=== PATIENT | male | born 1935 | race Caucasian/White ===

== ENCOUNTER 2016-08-06 03:56 | Inpatient (IN) | payer MEDICARE ==
[~2016-08-06] VITALS: Ht 193 cm; Wt 101.5 kg
[2016-08-06] VITALS (21 sets, daily range): BP systolic 93–139; BP diastolic 55–91; PULSE 42–106; RESP 13–28; O2SAT 89–100
[~2016-08-06 03:56] MED LIST: ASPI-973 PO; ATEN25TA PO; CHOL200047 PO; FLUT16SP NS; FURO40TA4 PO; LEVO750T9 PO; LIPA1CAP3 PO; MULT-666 PO; NITR0.4T SL; OMEG1200 PO; POTA40LI2 PO; SIMV20TA4 PO
--- NOTE | 2016-08-06 04:08 | ED.REPORT ---
HPI-Abd Pain M 40 and Over Date of Service Aug 06, 2016 ED Provider: Indra Pelayo MD Patient is a 81 year old male with a history of coronary artery disease, hypertension, lymphoma s/p gastrectomy, pancreatic cancer s/p whipple procedure , ventral hernia repair, and prior small bowel obstruction who presents to the ED complaining of abdominal pain and nausea that awoke him from sleep at 1:30am this morning. Patient denies vomiting, diarrhea, or fever. He was able to have a small bowel movement after onset of symptoms but states that his current symptoms feel similar to when he previously had a small bowel obstruction in 2006. Nursing Notes Stated Complaint: POSS BOWEL OBSTRUCTION Chief Complaint: Male Abdominal Pain Nursing Notes Reviewed: Yes Allergies: Coded Allergies: hydromorphone (Verified Allergy, Unknown, 08/06/16) Scheduled Aspirin (Aspirin) 81 Mg Tablet.dr 81 MG PO DAILY Atenolol (Atenolol) 25 Mg Tablet 12.5 MG PO DAILY Cholecalciferol (Vitamin D3) (Vitamin D3) 2,000 Unit Capsule 2,000 UNIT PO DAILY Fluticasone Propionate (Fluticasone Propionate Nasal) 16 Gm [place].susp 2 SPRAY NS DAILY Furosemide (Furosemide) 40 Mg Tablet 20 MG PO DAILY Levofloxacin (Levaquin) 750 Mg Tablet 750 MG PO DAILYAC Lipase/Protease/Amylase (Creon DR) 1 Each Capsule.dr 2 EACH PO with meals Multivitamin (Once Daily) 1 Each Tablet 1 EACH PO DAILY [place]-3/Dha/Epa/Fish Oil ([place]-3 Fish Oil 1,200 mg Sfgl) 1,200 Mg Capsule 1, 200 MG PO BID Potassium Chloride (Potassium Chloride) 40 Meq/15 Ml Liquid 20 MEQ PO DAILY Simvastatin (Simvastatin) 20 Mg Tablet 10 MG PO HS Scheduled PRN Nitroglycerin SL (Nitrostat) 0.4 Mg Tab.subl 0.4 MG SL Q5MIN PRN PRN For Chest Pain General Time Seen by MD: 04:08 Chief Complaint Abdominal pain Hx Obtained From: Patient Arrived By: Walk-in Sudden in Onset?: No Onset Occurred: 1 - 4 hours ago Symptom Duration: Since onset Location: : Diffuse Quality: Painful Severity: Current: Severe Severity: Maximum: Severe Recent Healthcare: No recent doctor visit, No recent hospitalization Similar Sx Previous: Yes Past Medical History Past Medical History Notes: PCP Dr. Morris Rosales ([place]) Past Medical History Pancreatic cancer (in remission) in 2006 small bowel obstruction lymphoma s/p gastrectomy Reports: Coronary artery disease, Hyperlipidemia, Hypertension Past Surgical History Quadruple bypass in 1995 Whipple in 2006 Bowel obstruction surgery Hernia surgery (mesh was placed) gastrectomy Family History Reviewed, not relevant Smoking History Former Smoker Social History Alcohol Use: Denies alcohol use Drug Use: Denies drug use Other Social History: Good social support, , Local resident Ambulatory Status Independent Review of Systems Constitutional: Denies: Chills, Fever GI: Reports: Abdominal pain, Nausea, Denies: Diarrhea, Vomiting Complete sys rev & neg: except as marked. Physical Exam Initial Vital Signs Vital Signs (First) Date Time Temp Pulse Resp B/P Pulse Ox O2 Delivery O2 Flow Rate FiO2 08/06/16 03:58 35.4 65 18 131/78 99 Room Air Initial VS: Reviewed Neck: Supple, Full range of motion Skin: Warm, Dry, No cyanosis Neurologic: Alert, Oriented, Nonfocal Psychiatric: Mood/affect normal, Behavior normal, Normal thought content General/Constitutional: Awake, Alert Distress / Hydration: Positive: Dehydration mild, Distress moderate Appearance / Presentation: Positive: Uncomfortable Respiratory / Chest: Breath sounds NL, Breath sounds = bilat, No respiratory distress, No rales, No rhonchi, No wheezing Cardiovascular: Heart rate NL, Regular rhythm, Heart sounds NL, No murmurs Bowel Sounds / Distention: Positive: Bowel sounds hypoactive (quiet and tinckling), Distention severe palpable mesh in abdomen, without obvious herniation around it small umbilical hernia Back: Not examined. Head / Eyes: Normocephalic, PERRL, EOMI, No scleral icterus ENT: Airway patent Mouth: Positive: Mucous membranes dry Lower Extremity / Pelvis / MS: No swelling, No edema Interpretation & Diagnostics Lab Results Interpretation Result Diagram: 08/06/16 0435 08/06/16 0435 Test 08/06/16 04:35 08/06/16 05:00 White Blood Count 9.1th/mm3 (3.8-10.1) Red Blood Count 4.94mil/mm3 (4.40-5.80) Hemoglobin 15.6g/dL (13.8-17.2) Hematocrit 44.6% (41.0-50.0) Mean Corpuscular Volume 90.3fL (81-100) Mean Corpuscular Hemoglobin 31.6pg (27.0-35.0) Mean Corpuscular Hemoglobin Concent 35.0% (32.0-37.0) Red Cell Distribution Width 13.5% (12.3-15.4) Platelet Count 175bil/L (150-400) Neutrophils (%) (Auto) 78.8% (40-74) Lymphocytes (%) (Auto) 10.8% (14-46) Monocytes (%) (Auto) 7.9% (4-12) Eosinophils (%) (Auto) 2.0% (0-5) Basophils (%) (Auto) 0.3% (0-3) Prothrombin Time 10.6sec (8.1-12.5) Prothromb Time International Ratio 0.99ratio Sodium Level 141mEq/L (134-144) Potassium Level 3.8mEq/L (3.5-5.2) Chloride Level 104mEq/L (97-108) Carbon Dioxide Level 20mmol/L (18-29) Blood Urea Nitrogen 20mg/dL (8-27) Creatinine 1.29mg/dL (0.76-1.27) Estimat Glomerular Filtration Rate 57mL/min (>59) Glucose Level 137mg/dL (60-99) Calcium Level 9.8mg/dL (8.5-10.1) Magnesium Level 2.1mg/dL (1.6-2.6) Total Bilirubin 0.4mg/dL (0.0-1.2) Aspartate Amino Transf (AST/SGOT) 24U/L (0-50) Alanine Aminotransferase (ALT/SGPT) 24U/L (0-44) Alkaline Phosphatase 66U/L (25-160) Total Protein 7.8g/dL (6.4-8.4) Albumin 4.5g/dL (3.4-5.0) Lipase 5U/L (13-60) Lactic Acid Level 1.7mmol/L (0.4-2.0) CT Abd / Pelvis Interpretation CONCLUSION: Moderate small bowel dilatation and fluid levels, probable SBO. No free air. Mild right lower lobe atelectasis or infiltrate. Pneumonia is not excluded. Radiologist: Melly Walden MD 08/06/2016 - 5:07:23 AM PDT Study type: Abdominal CT no contrast Interpretation / Wet Read by: Interpret - Radiologist Re-Eval/Medical Decision Med Decision/Clinical Course 81-year-old with significant past surgical history, including a gastrectomy for lymphoma, Whipple procedure for subsequent pancreatic cancer, a ventral hernia postop that required mesh, and an incidental four-way bypass. He presents with abdominal pain and bloating and has a small bowel obstruction. Transition point appears to be in the right lower quadrant near the terminal ileum. He is not vomiting actively although nauseated. He has not required an NG tube at this point. He may yet. He is admitted for nothing by mouth status, IV fluids, and surgical evaluation. Source of Hx: Old records Time of Eval: 05:22 Patient Status: Condition improved Re-Evaluation/Progress Note: Rechecked the patient. He was informed that he has a small bowel obstruction on CT scan. He will be admitted to the hospital for further care. Patient would like to delay NG tube if possible. Patient understands and agrees with this plan. All questions were addressed. Consultation : Referral / Consult Name: Edwige Sheriff DO Consulted With: Hospitalist Call Returned at: 05:37 Livestock Trucker: Will see patient, Agrees with eval, Agrees with plan, Accepts admit Note: Spoke with Dr. Sheriff, hospitalist, who agrees to accept admit. Will consult surgery. Counseled Regarding: Diagnosis, Lab results, Need for admission Discharge & Departure Primary Impression: Small bowel obstruction Additional Impression: Ventral hernia Obstruction and gangrene presence: with obstruction but without gangrene Qualified Code: K43.6 - Other and unspecified ventral hernia with obstruction, without gangrene Disposition: ADMITTED TO HOSPITAL Vital Signs - All Vital Signs Date Time Temp Pulse Resp B/P Pulse Ox O2 Delivery O2 Flow Rate FiO2 08/06/16 05:50 36 71 13 132/69 92 Room Air 08/06/16 05:17 71 13 132/69 92 Room Air 08/06/16 04:15 131/78 08/06/16 03:58 35.4 65 18 131/78 99 Room Air )( All Prior VS Reviewed: Yes Condition: Stable Referrals: OTHER,PHYSICIAN (PCP) (Family) Scribe Attestation Portions of this note were transcribed by Silva Rand. I, Dr. Pelayo personally performed the history, physical exam and medical decision-making; I reviewed and confirmed the accuracy of the information in the transcribed note. Signed by: Lauren Lafleur, 08/06/2016 0538 copies to: OTHER,PHYSICIAN Indra Pelayo MD Aug 06, 2016 04:08 Silva Rand Aug 06, 2016 04:23
[2016-08-06] MEDS ORDERED: Ondansetron 2 mg/mL 2 mL Inj IVPUSH ONE (04:25)
[2016-08-06] MEDS ORDERED: Pantoprazole 4 mg/mL 10 mL Inj IVPUSH ONE (04:25)
[2016-08-06] MEDS ORDERED: 0.9% Sodium Chloride 1,000 ML IV ONE (04:25)
[2016-08-06 04:50] LABS: BASOPHILS % (AUTO) 0.3 % (0-3); MONOCYTES % (AUTO) 7.9 % (4-12); Mean Corpuscular Hemoglobin 31.6 pg (27.0-35.0); Mean Corpuscular Volume 90.3 fL (81-100); NEUTROPHILS % (AUTO) 78.8 % (40-74); Platelet Count 175 bil/L (150-400)
[2016-08-06] MEDS: fentaNYL-PF 50 mCg/mL 2 mL Inj IVPUSH PRN ×2 (05:03→06:51)
[2016-08-06 05:09] LABS: INR 0.99 ratio
[2016-08-06 05:13] LABS: Magnesium 2.1 mg/dL (1.6-2.6)
[2016-08-06] MEDS: 0.9% Sodium Chloride 1,000 ML IV SCH ×9 (05:30→20:57)
[2016-08-06] MEDS: Lactated Ringer's 1,000 ML IV SCH ×3 (05:43→22:58)
[2016-08-06] MEDS ORDERED: Ondansetron 2 mg/mL 2 mL Inj IVPUSH PRN (05:45)
[2016-08-06] MEDS ORDERED: MetoCLOpramide 5 mg/mL 2 mL Inj IVPUSH PRN (05:45)
[2016-08-06] MEDS: fentaNYL PCA 10 mCg/mL 30 mL Inj IV PRN ×3 (07:10→21:45)
--- NOTE | 2016-08-06 07:38 | NUR ---
arrived to floor pt arrived to [facility] room 1007 at 0630. He is alert and oriented x3. complaining of extreme pain in abdomen. COORDINATOR OF REHABILITATION SERVICES fentanyl set up and pt given a bolus by day shift charge nurse. pt also complaining of nausea with no vomiting given 4mg of IV zofran. placed on tele and PHYSICIST NUCLEAR, per cardiac monitor pt SR with first degree block. report passed to dayshift RN.
--- NOTE | 2016-08-06 08:28 | DRSVH ---
PROCEDURE: CT ABDOMEN AND PELVIS WITHOUT CONTRAST ([id number]) INDICATIONS: sbo, post gastrectomy and whipple TECHNIQUE: After the administration of oral contrast, 5 mm thick sections acquired from the diaphragms to the sy mphysis. 5 mm coronal and sagittal reformats were performed. For radiation dose reduction, the foll owing was used: automated exposure control, adjustment of mA and/or kV according to patient size. COMPARISON: [facility], CR, XR CHEST 1VW (PORTABLE), 08/06/2016, 5:45. FINDINGS: Image quality: Excellent. ABDOMEN: Lung bases: Bibasilar dependent atelectasis. Heart size is normal. There is severe coronary calcifi cation and CABG. Solid organs: Left hepatic lobe is absent, likely surgically resected. There is pneumobilia. A 10 mm hypodensity in the posterior segment of the right hepatic lobe is noted, probably a cyst. Spleen is n ormal in size. Gallbladder is surgically absent. Pancreas is normal in size. No adrenal nodules. Both kidneys are normal in size, without hydronephrosis. There is a 3 mm non-obstructive stone in th e superior pole of the right kidney. Bilateral exophytic renal cysts are present. Peritoneum and bowel: Surgical sutures seen in the stomach. Small bowel loops are distended measurin g up to 4.5 cm. There are differential air-fluid levels. No transitional point is identified. There i s abundant colonic gas. No free fluid or air. Nodes and vessels: No retroperitoneal or mesenteric adenopathy by size criteria. Aorta and inferior vena cava are normal in size. Miscellaneous: No ventral hernias. PELVIS: Genitourinary: Bladder wall thickness is normal. Miscellaneous: No inguinal hernias or adenopathy. Bones: No suspicious bony lesions. Mild compression deformity in L2, L3 and L4. IMPRESSION: 1. Distended small bowel to measure up to 4.5 cm. There is no transitional point identified. Abundant colonic gas is present. Differential diagnosis includes early small or partial small bowel obstructi on versus ileus. Recommend clinical correlation and followup. 2. A 3 mm non-obstructive renal cyst in the superior pole. 3. Bilateral renal cysts. No significant discrepancy with the overnight associate radiology preliminary report. Dictated by: Carmen Chacon M.D. on 08/06/2016 at 8:18 Approved by: Carmen Chacon M.D. on 08/06/2016 at 8:27
--- NOTE | 2016-08-06 08:29 | DRSVH ---
PROCEDURE: X-RAY CHEST ONE VIEW, PORTABLE ([id number]) INDICATIONS: SMALL BOWEL OBSTRUCTION TECHNIQUE: One view of the chest was acquired. COMPARISON: 09/01/2015 FINDINGS: Surgical changes and devices: Median sternotomy with CABG Lungs and pleura: No pleural effusions or pneumothorax. Lungs are clear except for minimal bibasila r atelectasis.. Mediastinum: Mediastinal contours appear normal. Heart size is normal. Bones and chest wall: No suspicious bony lesions. Overlying soft tissues appear unremarkable. IMPRESSION: Mild bibasilar atelectasis. Postop changes. Dictated by: Yousuf Collazo M.D. on 08/06/2016 at 8:27 Approved by: Yousuf Collazo M.D. on 08/06/2016 at 8:28
--- NOTE | 2016-08-06 08:53 | PCM.HPMED ---
Subjective Date of Service Aug 06, 2016 Primary Provider: Admitting Physician: Edwige Sheriff DO Primary Care Physician: Nopcp Attending Physician: Edwige Sheriff DO Chief Complaint: Sudden onset of abdominal pain History of Present Illness: 81-year-old male with significant bowel surgeries in the past including Whipple surgery in 2005 complicated by bowel obstruction in 2006 required surgical intervention, mesh was placed. had ventral hernia repair in 2008, s/p gastrectomy lymphoma presented with sudden onset of abdominal pain starting early this morning. Patient was in usual state of health until this episode. Yesterday, patient had normal diet, noticing his belly size got bigger but had good loose BM twice(normally 3-5times per day), then around 1:30am this morning , due to very severe cramping pain periumbilical area, pt woke up, had one small soft BM subsequently. didn't have nausea, vomiting, Pain didn't resolve decided to come to ED. in ED, VS stable, labs showed normal wbc, mildly elevated lactate, cr1.29(1.17 in 2016), lipase5. CT abd/pelvis w/o contrast showed distended SB 4.5cm, multiple colonic gases, admitted to hospital given SBO, possible surgical intervention. 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 received zofran, protonix On interview at [facility], pt still in distress due to pain, nausea, had multiple dry heaves, but no vomiting.pt agreed on NG insertion ROS: no fever, chills, cough, sputum, chest pain, sob, has baseline frequent loose stools, no travel, sick contacts. Review of Systems: Pertinent positives as noted in history of present illness. All other systems were reviewed and are negative Allergies Coded Allergies: hydromorphone (Verified Allergy, Unknown, 08/06/16) Home Medications Scheduled Aspirin (Aspirin) 81 Mg Tablet.dr 81 MG PO DAILY Atenolol (Atenolol) 25 Mg Tablet 12.5 MG PO DAILY Cholecalciferol (Vitamin D3) (Vitamin D3) 2,000 Unit Capsule 2,000 UNIT PO DAILY Fluticasone Propionate (Fluticasone Propionate Nasal) 16 Gm [place].susp 2 SPRAY NS DAILY Furosemide (Furosemide) 40 Mg Tablet 20 MG PO DAILY Lipase/Protease/Amylase (Creon DR) 1 Each Capsule.dr 2 EACH PO with meals Multivitamin (Once Daily) 1 Each Tablet 1 EACH PO DAILY [place]-3/Dha/Epa/Fish Oil ([place]-3 Fish Oil 1,200 mg Sfgl) 1,200 Mg Capsule 1, 200 MG PO BID Potassium Chloride (Potassium Chloride) 40 Meq/15 Ml Liquid 20 MEQ PO DAILY Simvastatin (Simvastatin) 20 Mg Tablet 10 MG PO HS Scheduled PRN Nitroglycerin SL (Nitrostat) 0.4 Mg Tab.subl 0.4 MG SL Q5MIN PRN PRN For Chest Pain PMH PMH 1. Coronary Artery Disease, status post 4-vessel bypass 2. Pancreatic Cancer, status post whipple procedure 3. Essential Hypertension 4. Hyperlipidemia 5. Asthma 6. Hx of Tobacco Use Surgical History 1. CABG, 4-vessel in 1996 2. Whipple Procedure in 2005 3. mesh placement due to SBO in 2006 4. ventral hernia repair in 2008 Family History father had heart attack Social History Hx Alcohol Use: Yes Alcoholic Drinks Per Day: Every once and a while Hx Substance Use: No (remote, quit smoking 1973, used to smoke 3ppd for 2yrs) Smoking Status: Former Smoker Additional Information lives alone, is in [facility] resident Exam Vital Signs Vital Sign - Last Date Time Temp Pulse Resp B/P Pulse Ox O2 Delivery O2 Flow Rate FiO2 08/06/16 06:33 77 08/06/16 06:29 36.9 18 132/73 100 Room Air Intake and Output 08/05/16 08/05/16 08/06/16 Cumulative From/Thru 15:00 23:00 07:00 08/06/16 03:58 - 08/06/16 06:29 Intake Total 2000 ml 2000 ml Output Total 0 ml 0 ml Balance 2000 ml 2000 ml Intake Oral 0 ml 0 ml IV Total 2000 ml 2000 ml Output Urine Total 0 ml 0 ml # Voids 0 0 # Bowel Movements 0 0 Exam NAD, comfortably laying down on the bed no JVD, MMM, no LAD RRR, nl s1, s2 no mrg CTAB, no w,c decreased BS, distended, mildly tender, old midline scars, warm, no edema, pulses 2/2 Lab and Diagnostics Result Diagram: 08/06/16 0435 08/06/16 0435 X-Rays, CTs and MRIs PROCEDURE: CT ABDOMEN AND PELVIS WITHOUT CONTRAST ([id number]) INDICATIONS: sbo, post gastrectomy and whipple TECHNIQUE: After the administration of oral contrast, 5 mm thick sections acquired from the diaphragms to the symphysis. 5 mm coronal and sagittal reformats were performed. For radiation dose reduction, the following was used: automated exposure control, adjustment of mA and/or kV according to patient size. COMPARISON: [facility], CR, XR CHEST 1VW (PORTABLE), 08/06/2016, 5: 45. FINDINGS: Image quality: Excellent. ABDOMEN: Lung bases: Bibasilar dependent atelectasis. Heart size is normal. There is severe coronary calcification and CABG. Solid organs: Left hepatic lobe is absent, likely surgically resected. There is pneumobilia. A 10 mm hypodensity in the posterior segment of the right hepatic lobe is noted, probably a cyst. Spleen is normal in size. Gallbladder is surgically absent. Pancreas is normal in size. No adrenal nodules. Both kidneys are normal in size, without hydronephrosis. There is a 3 mm non- obstructive stone in the superior pole of the right kidney. Bilateral exophytic renal cysts are present. Peritoneum and bowel: Surgical sutures seen in the stomach. Small bowel loops are distended measuring up to 4.5 cm. There are differential air-fluid levels. No transitional point is identified. There is abundant colonic gas. No free fluid or air. Nodes and vessels: No retroperitoneal or mesenteric adenopathy by size criteria. Aorta and inferior vena cava are normal in size. Miscellaneous: No ventral hernias. PELVIS: Genitourinary: Bladder wall thickness is normal. Miscellaneous: No inguinal hernias or adenopathy. Bones: No suspicious bony lesions. Mild compression deformity in L2, L3 and L4. IMPRESSION: 1. Distended small bowel to measure up to 4.5 cm. There is no transitional point identified. Abundant colonic gas is present. Differential diagnosis includes early small or partial small bowel obstruction versus ileus. Recommend clinical correlation and followup. 2. A 3 mm non-obstructive renal cyst in the superior pole. 3. Bilateral renal cysts. No significant discrepancy with the supervising producer radiology preliminary report. 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 likely to switch to prn based dosing soon. -start aggressive bowel regimen via NG -continue [id number], trend cmp daily, replet K,Mg chronic, stable Coronary artery disease s/p CABG, continue home asa, BB, statin, lasix Hyperlipidemia, continue simvastatin Hypertension, continue atenolol asthma, neb tx as needed CKDII, POA, not in the problems list, Cr close to baseline, slightly worse, avoid renal toxin, adjust meds renally dispo:Patient will be admitted with inpatient status with expectation of inpatient therapy for more than 2 midnights diet:strict NPO dvt ppx:SCD Full Code, verbally confirmed, pt also has POLST signed, will verify VTE Mechanical Devices: Intermittant Pneumatic CD Time spent 65min Mireille Koenig MD Aug 06, 2016 08:53
[2016-08-06] MEDS ORDERED: Lidocaine 2% 5 mL Topical Jelly MUC_MEMBRM ONE (12:10)
--- NOTE | 2016-08-06 12:12 | DRSVH ---
PROCEDURE: X-RAY CHEST ONE VIEW ([id number]) INDICATIONS: NG placement TECHNIQUE: One view of the chest was acquired. COMPARISON: [facility], CR, XR CHEST 1VW (PORTABLE), 08/06/2016, 5:45. FINDINGS: Surgical changes and devices: The nasogastric tube is curved inside of the esophagus. Lungs and pleura: There is chronic elevation of the left hemidiaphragm. Left basilar opacity may be infiltrate or atelectasis. Possible small left pleural effusion. No pneumothorax. Overall, no signifi cant change. Mediastinum: Mediastinal contours appear normal. Heart size is normal. Bones and chest wall: No suspicious bony lesions. Overlying soft tissues appear unremarkable. Prom inent gastric bubble. IMPRESSION: Nasogastric tube curved inside of the esophagus. Dictated by: Carmen Chaocn M.D. on 08/06/2016 at 12:09 Approved by: Carmen Chacon M.D. on 08/06/2016 at 12:11
[2016-08-06] MEDS ORDERED: Lidocaine Topical 2% 30 mL Jelly ONE (13:06)
--- NOTE | 2016-08-06 13:49 | DRSVH ---
PROCEDURE: X-RAY CHEST ONE VIEW, PORTABLE ([id number]) INDICATIONS: NG Placement TECHNIQUE: One view of the chest was acquired. COMPARISON: 08/06/[id number] hrs. FINDINGS: Surgical changes and devices: Nasogastric tube has been revised, tip now below the level of the diaph ragm. Median sternotomy and CABG. Lungs and pleura: No pleural effusions or pneumothorax. Dense left lower lobe infiltrate with air br onchograms. Mediastinum: Mediastinal contours appear normal. Heart size is normal. Bones and chest wall: No suspicious bony lesions. Overlying soft tissues appear unremarkable. IMPRESSION: 1. Repositioning of nasogastric tube 2. Left lower lobe pneumonia. 3. Status post coronary artery bypass surgery. Dictated by: Yousuf Collazo M.D. on 08/06/2016 at 13:43 Approved by: Yousuf Collazo M.D. on 08/06/2016 at 13:48
[2016-08-06] MEDS ORDERED: Albuterol-Ipratropium 3 mL Inhalation Solution NEB PRN (14:25)
[2016-08-06] MEDS ORDERED: Albuterol 2.5 mg/3 mL Inhalation Solution NEB ONE (14:28)
--- NOTE | 2016-08-06 14:30 | NUR ---
NG Placement Surgical MD on unit to place second NG Tube due to first one being taken out by hospitalist after failed placement. After second NGT placement, patient vomited and aspirated emesis into lungs. Notified hospitalist that pt aspirated. XR ordered and confirmed LLE aspiration. Patient wheezy, coughing, and upper airway unable to clear at this time. Increased SOB, and coughing. Surgical MD reviewed second NG placement XR and asked this RN to advance NG 10cm. Advanced NGT at this time, with increased output into NG cannister. Respiratory therapy called and pt placed on nonrebreather 100% at this time. Pt having difficulty maintaining Sp02 above 90% on nonrebreather. MD requested PCC transfer at this time. Report called to AKUA Blakely. Transferred to room 2023 stable.
--- NOTE | 2016-08-06 14:49 | CONS ---
[address] [address] CONSULTATION REPORT PATIENT: THAI LEDBETTER : 1935 MR#: [id number] ADMIT: 08/06/2016 JOB ID: [id number] DATE OF SERVICE: 08/06/2016 SURGICAL CONSULTATION: REQUESTED BY: Mireille Koenig M.D. HISTORY OF PRESENT ILLNESS: The patient is a 81-year-old man I was asked to see for a small bowel obstruction. He has a complex past surgical history. In 2005 he had a Whipple resection done at [facility] in [place] by Dr. 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 He has had subsequent operations because of that Whipple procedure. He states that within 24 hours he was re-explored because of bleeding but he has obviously survived that. He then had a bowel obstruction in 2006. He subsequently had an incisional hernia repair which was repaired laparoscopically with mesh eight years ago. Early this morning he awoke with severe crampy abdominal pain and nausea and vomiting. Prior to that yesterday, he started noticing abdominal distention. He came to the emergency department. He had a CT scan which is consistent with either an early bowel obstruction or partial bowel obstruction as there is a large amount of air in the colon. His small bowel measures up to 4.5 cm. There is no obvious transition point. There is no evidence of metastatic disease. The metal chris for his mesh are easily visible in his anterior abdominal wall. There are no obvious hernias. His past history is significant for coronary artery disease and he has had a four-vessel CABG. He also has essential hypertension, hyperlipidemia, asthma and a distant history of tobacco use. He is . His has MS and is a resident at [facility]. He lives at a home in [place]. 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 PHYSICAL EXAMINATION: Pleasant alert, no distress. Appearing stated age. BMI 27. Temperature 36.4, brachial blood pressure 139/91, pulse 96, respiratory rate 20, O2 sat is 92% on room air. HEENT: PERRLA. EOMI. No scleral icterus. Neck: No appreciable masses. Trachea midline. Lymph nodes: No appreciable cervical or scalene adenopathy. Lungs: Clear. Cardiac examination: Median sternotomy incision. I did not appreciate any murmurs or gallops. Abdomen: Midline incision. His abdomen is distended but he clearly has a wide separation of his rectus muscles but I think that his abdomen is distended above and beyond that. He has no significant tenderness. He has no palpable recurrent incisional hernia. No palpable inguinal hernias. Extremities: No edema. Skin clear without anterior abdominal or chest wall rashes. Neurologic examination: Appropriate affect. No obvious cranial nerve deficits. He moves all extremities. Gait not tested. LABORATORY RESULTS: White blood cell count 9.1, hematocrit 44.6, platelet count 175,000. Electrolytes are normal. Lactic acid is 1.7, creatinine is 1.29, glucose 137. CT scan is personally reviewed by myself. Also a chest x-ray after I placed an NG tube shows the tube into the stomach but needs to be advanced. Immune. IMPRESSION: Partial obstruction possibly resolved because just before I entered the room he said he passed a large amount of flatus, but he still has a very distended abdomen and stomach. I went ahead and placed an NG tube. I explained to him that most small bowel obstructions will resolve with non surgical intervention. I defined our usual course and process for this. He does understand that he may require a Gastrografin challenge. He understands that and I will follow along with him.
--- NOTE | 2016-08-06 15:18 | DRSVH ---
PROCEDURE: X-RAY CHEST ONE VIEW, PORTABLE ([id number]) INDICATIONS: episode of aspiration, dessat TECHNIQUE: One view of the chest was acquired. COMPARISON: [facility], CR, XR CHEST 1VW, 08/06/2016, 10:24. [facility], CR, XR CHEST 1VW (PORTABLE), 08/06/2016, 13:11. FINDINGS: Surgical changes and devices: Sternotomy and CABG. There is a nasogastric tube in the stomach. Lungs and pleura: Left lower lobe infiltrate consistent with aspiration pneumonia. No pleural effusi ons or pneumothorax. Mediastinum: Mediastinal contours appear normal. Heart size is normal. Bones and chest wall: No suspicious bony lesions. Overlying soft tissues appear unremarkable. IMPRESSION: Left lower lobe infiltrate consistent with aspiration pneumonia. Dictated by: Carmen Chacon M.D. on 08/06/2016 at 15:15 Approved by: Carmen Chacon M.D. on 08/06/2016 at 15:17
--- NOTE | 2016-08-06 16:23 | NUR ---
Social Work-initial assessment: Data:See initial assessment. Pt is a 81 y/o male who was admitted on 08/05/16 for SBO and Post hernia repair per H&P. Pt's insurance is [employer] and PCP is Dr. Rosales. EMR Reviewed. Pt's readmission score is 3-high risk. SW met with pt and patient's daughter, Homa Landers [phone], to discuss discharge planning, SW role explained and initial assessment complete. Pt is alert and oriented x3. Pt resides at home alone in a single level home with one step to enter where pt remains independent with basic ADLs. Pt does drive. Pt has no HH or SNF history. Pt has completed DPOA/ advanced directive and SW requested a copy. SW discuss HH services and skilled nursing care planning and provided patient with a choice list. Patient wants [facility] if HH is needed and chose [facility] is SNF is needed. Patient's is a resident a [facility]. Pt's family to provide transport home at discharge. SW provided phone number and plan on white board in room. SW will continue to follow. Plan: Pt to likely discharge home with HH vs SNF. Pt's family is supportive. SW will continue to follow. Amparo Carl. DEBBI ESCALANTE Addendum: 08/06/16 at 1630 by AMPARO CARL SS Amended: Links added.
[2016-08-06 16:33] LABS: BASOPHILS % (AUTO) 0 % (0-3); EOSINOPHILS % (AUTO) 0 % (0-5); MONOCYTES % (AUTO) 4.3 % (4-12); Mean Corpuscular Volume 91.2 fL (81-100); NEUTROPHILS % (AUTO) 89.1 % (40-74); Platelet Count 146 bil/L (150-400)
[2016-08-06 17:02] LABS: Magnesium 1.6 mg/dL (1.6-2.6); Phosphorus 2.5 mg/dL (2.5-4.9)
--- NOTE | 2016-08-06 17:30 | NUR ---
Took over care Pt arrived to room 2023 at about 1725. Report receive OSC RN. Patient oriented to room and use of call light. Pt verbalized understanding. Pt alert to place, person and time. NJ tube to low continuous suction per report. Pt on High flow SpO2 low 90s, Denies SOB at this time. Vitals taken by EMAIL PRODUCTION CONSULTANT. Ongoing care.
[2016-08-06] MEDS: Piperacillin-Tazo 3.375 Gm Inj 3.375 GM in Dextrose 5% Minibag Plus 50 ML IV SCH (18:11)
--- NOTE | 2016-08-06 18:35 | NUR ---
INR/PTT INR 2.29 today, Vit K given to pt per MD's order. Possible heart cath tmr, NPO after midnight. PTT therapeutic x2 today next PTT in AM. No complaints of chest pain through the day, Nitro drip still going at 5mcg/min. Ongoing care. Addendum: 08/06/16 at 1939 by ALEXANDRU COLLADO RN Wrong patient
[2016-08-06] MEDS ORDERED: fentaNYL-PF 50 mCg/mL 2 mL Inj IVPUSH PRN (21:35)
[2016-08-07] VITALS (17 sets, daily range): BP systolic 102–122; BP diastolic 63–73; PULSE 69–99; RESP 20–24; O2SAT 91–98
[2016-08-07] MEDS ORDERED: 0.9% Sodium Chloride 500 ML IV ONE (00:15)
[2016-08-07] MEDS: Piperacillin-Tazo 3.375 Gm Inj 3.375 GM in Dextrose 5% Minibag Plus 50 ML IV SCH ×3 (02:59→17:54)
[2016-08-07 03:27] LABS: Mean Corpuscular Hemoglobin 30.8 pg (27.0-35.0); Mean Corpuscular Volume 90.8 fL (81-100)
[2016-08-07 04:03] LABS: Magnesium 1.6 mg/dL (1.6-2.6)
[2016-08-07 06:10] LABS: APPEARANCE,URINE CLEAR (CLEAR,HAZY); COLOR,URINE DARK YELLOW (YELLOW); OCCULT BLOOD,URINE NEGATIVE (NEGATIVE); PH,URINE 5.5 (5.0-8.0); UROBILINOGEN,URINE NORMAL (NORMAL)
[2016-08-07] MEDS: 0.9% Sodium Chloride 1,000 ML IV SCH ×2 (06:21→18:46)
--- NOTE | 2016-08-07 07:30 | NUR ---
DAIRY TESTER/GI/Lactic Pt c/o increasing abdominal pain, per MD, okay to restart fentanyl DAIRY TESTER which was stopped prior to transfer to this floor. First fentanyl syringe dropped and wasted w/ Tracie Huber RN. Second Fentanyl syringe would not scan into DAIRY TESTER pump, second DAIRY TESTER pump attempted and multiple RNs and bellows charger assembler attempted to fix this. Pharmacy brought up third fentanyl syringe which also did not scan into DAIRY TESTER pump. DC'd DAIRY TESTER pump and ordered fentanyl pushes PRN. By the time this processed, pharmacy able to find barcode that would work with DAIRY TESTER. MD reordered DAIRY TESTER fentanyl with original settings. Second Fentanyl syringe wasted w/ Kadeem Delgado RN, third syringe able to be used. Pt given bolus loading dose and after some time stated good pain relief w/ continual DAIRY TESTER use. Pt monitored on PARACHUTIST/COMBATANT DIVER QUALIFIED and with frequent assessing. Pt continues with NG suction, pt had consistent output of light brown/yellow/orange colored liquid. PO bowel meds held d/t NPO status and to avoid clamping the NG tube with consistent output. Pt denied nausea all night. Lactic acid and borderline BP (90s/50s) reported to MD who ordered morning labs as well as 500 NS bolus and continuous NS @125. This morning procalcitonin and lactic results sent in FYI page.
[2016-08-07] MEDS: Polyethylene Glycol (PEG) 17 Gm Powder PO SCH (08:04)
[2016-08-07] MEDS: Lactated Ringer's 1,000 ML IV SCH ×2 (11:43→19:31)
--- NOTE | 2016-08-07 11:48 | PROG NOTE ---
[address] [address] PROGRESS NOTE PATIENT: THAI LEDBETTER : 1935 MR#: [id number] ADMIT: 08/06/2016 JOB ID: [id number] DATE: 08/07/2016 SUBJECTIVE: The patient is seen in followup of his small bowel obstruction. He got transferred to the second floor. He is improving but has developed a left lower lobe pneumonia. He had a large bowel movement yesterday afternoon, but today he says he has not passed gas or had a bowel movement. He denies abdominal pain. DATE: REVIEW OF SYSTEMS: Otherwise negative. PHYSICAL EXAMINATION: He is alert, no distress. Temperature 37.6, brachial blood pressure 102/67, pulse 65, respiratory rate 24, O2 sat on an FiO2 of 0.7 is 93. Abdomen: Marked decrease in distention. He has minimal diffuse abdominal tenderness. No peritoneal signs. LABORATORY RESULTS: White blood cell count 8.5, hematocrit 41.6, platelet count 147,000. Electrolytes are normal. Creatinine is 1.5. Lactic acid is 2.8, improving. NG tube listed as 350 cc out overnight, yellowish. IMPRESSION: 1. Partial bowel obstruction, improved. 2. Left lower lobe aspiration pneumonia. PLAN: Continue NG tube. Would encourage him to get out of bed.
[2016-08-07] MEDS: fentaNYL PCA 10 mCg/mL 30 mL Inj IV PRN (12:24)
--- NOTE | 2016-08-07 17:04 | PCM.PNMED ---
Subjective Date of Service Aug 07, 2016 Subjective Patient complains of ongoing pain, mostly associated with his NG tube. Abdominal pain is insignificant. He is not passing gas, did have a large bowel movement last night. No chest pain, shortness breath Exam Vital Signs Vital Sign - Last Date Time Temp Pulse Resp B/P Pulse Ox O2 Delivery O2 Flow Rate FiO2 08/07/16 16:05 36.7 91 22 115/71 97 Hiflow 70 08/07/16 14:00 55 Intake and Output 08/06/16 08/06/16 08/07/16 Cumulative From/Thru 15:00 23:00 07:00 08/06/16 03:58 - 08/07/16 06:34 Intake Total 916 ml 3055 ml 5971 ml Output Total 2400 ml 500 ml 2900 ml Balance -1484 ml 2555 ml 3071 ml Intake Oral 0 ml 300 ml 300 ml IV Total 916 ml 2755 ml 5671 ml Output Urine Total 300 ml 500 ml 800 ml Gastric Drainage Total 600 ml 600 ml Emesis 1500 ml 1500 ml # Voids 0 # Bowel Movements 1 1 Exam General: Alert, Oriented X3, mild distress Head: Normocephalic, atraumatic Eyes: RAISA, EOMI, no scleral Icterus Chest: clear to auscultation B/L, no wheezing rales or rhonchi Heart: Regular rate and rhythm. Normal S1, S2, no murmurs noted Abdomen: soft, non-tender. Bowel sounds are normoactive. No guarding or rebound. Extremities: no cyanosis, clubbing or edema. IVs and Medications Medications Reviewed: Medications were reviewed in detail Lab and Diagnostics Result Diagram: 08/07/16 0320 08/07/16 0320 X-Rays, CTs and MRIs PROCEDURE: CT ABDOMEN AND PELVIS WITHOUT CONTRAST ([id number]) INDICATIONS: sbo, post gastrectomy and whipple TECHNIQUE: After the administration of oral contrast, 5 mm thick sections acquired from the diaphragms to the symphysis. 5 mm coronal and sagittal reformats were performed. For radiation dose reduction, the following was used: automated exposure control, adjustment of mA and/or kV according to patient size. COMPARISON: [facility], CR, XR CHEST 1VW (PORTABLE), 08/06/2016, 5: 45. FINDINGS: Image quality: Excellent. ABDOMEN: Lung bases: Bibasilar dependent atelectasis. Heart size is normal. There is severe coronary calcification and CABG. Solid organs: Left hepatic lobe is absent, likely surgically resected. There is pneumobilia. A 10 mm hypodensity in the posterior segment of the right hepatic lobe is noted, probably a cyst. Spleen is normal in size. Gallbladder is surgically absent. Pancreas is normal in size. No adrenal nodules. Both kidneys are normal in size, without hydronephrosis. There is a 3 mm non- obstructive stone in the superior pole of the right kidney. Bilateral exophytic renal cysts are present. Peritoneum and bowel: Surgical sutures seen in the stomach. Small bowel loops are distended measuring up to 4.5 cm. There are differential air-fluid levels. No transitional point is identified. There is abundant colonic gas. No free fluid or air. Nodes and vessels: No retroperitoneal or mesenteric adenopathy by size criteria. Aorta and inferior vena cava are normal in size. Miscellaneous: No ventral hernias. PELVIS: Genitourinary: Bladder wall thickness is normal. Miscellaneous: No inguinal hernias or adenopathy. Bones: No suspicious bony lesions. Mild compression deformity in L2, L3 and L4. IMPRESSION: 1. Distended small bowel to measure up to 4.5 cm. There is no transitional point identified. Abundant colonic gas is present. Differential diagnosis includes early small or partial small bowel obstruction versus ileus. Recommend clinical correlation and followup. 2. A 3 mm non-obstructive renal cyst in the superior pole. 3. Bilateral renal cysts. No significant discrepancy with the lion trainer radiology preliminary report. Assessment & Plan This is a 81-year-old man admitted with small bowel obstruction who later developed a left lower lobe pneumonia, likely secondary to aspiration. This resulted in respiratory failure necessitated transfer to PCU for closer observation and respiratory support. Aspiration event was likely secondary to placement of his NG tube which is close significant pain for him and required initiation of PLATE DRYING MACHINE TENDER. Small bowel obstruction: acute, active abdominal pain, nausea, vomiting, POA, likely SBO vs ileus, based on CT abd, multiple bowel surgical hx -Continue NG decompression, we will clamp tube, advance diet if tolerated. -Surgery has been consulted. -zofran for n/v -pain control now with fentanyl PLATE DRYING MACHINE TENDER for now, pt does have allergy to dilaudid- rash. likely to switch to prn based dosing soon. -continue [id number], trend cmp daily, replet K,Mg Aspiration pneumonia: -Continue Zosyn -Albuterol as needed Coronary artery disease -s/p CABG, continue home asa, BB, statin, lasix Hyperlipidemia, -continue simvastatin Hypertension, -continue atenolol asthma, -neb tx as needed CKDII, POA, - Cr close to baseline, slightly worse, avoid renal toxin, adjust meds renally CODE STATUS: Full code DVT prophylaxis: SCDs Disposition: Likely home at discharge, pending hospital course. VTE Mechanical Devices: Intermittant Pneumatic CD Barry Hogue DO Aug 07, 2016 17:04
--- NOTE | 2016-08-07 18:27 | NUR ---
Pain/NG tube Pt stated he was having pain from NG tube that was not being helped by Fentynl ASSOCIATE PROFESSOR OF VIOLIN. Pt was given 1 loading dose on ASSOCIATE PROFESSOR OF VIOLIN of 20mcg. MD was made aware and gave direction to clamp NG tube on trial, and monitor pt for nausea and abdominal pain. Pt stated that his pain has decreased and that he has no nausea, no vomiting.
[2016-08-08] VITALS (17 sets, daily range): BP systolic 115–149; BP diastolic 63–91; PULSE 53–104; RESP 18–28; O2SAT 95–97
[2016-08-08] MEDS: Piperacillin-Tazo 3.375 Gm Inj 3.375 GM in Dextrose 5% Minibag Plus 50 ML IV SCH ×3 (01:43→16:45)
[2016-08-08] MEDS: 0.9% Sodium Chloride 1,000 ML IV SCH ×3 (03:29→21:30)
[2016-08-08 03:37] LABS: Mean Corpuscular Hemoglobin 31.3 pg (27.0-35.0); Mean Corpuscular Volume 91.9 fL (81-100); Platelet Count 108 bil/L (150-400)
[2016-08-08 03:56] LABS: BASOPHILS % (AUTO) 0.2 % (0-3); EOSINOPHILS % (AUTO) 0.1 % (0-5); MONOCYTES % (AUTO) 4.4 % (4-12); NEUTROPHILS % (AUTO) 80.7 % (40-74)
[2016-08-08] MEDS: fentaNYL PCA 10 mCg/mL 30 mL Inj IV PRN ×2 (05:22→18:23)
--- NOTE | 2016-08-08 06:39 | NUR ---
PVCs/Pain/GI Pt noted to have increase in PVCs as night progressed, MD was outside pt room and was notified that pt already had a high PVC count but was now averaging 30/min rather than 20/min. MD also told what latest potassium/Mag results were. No new orders given at this time. Pt intermittently asleep but easy to wake, following commands and voicing needs. States pain is well controlled. Pt stated he had no abdominal pain this shift but pain in throat persists. Pt states his throat is sore and feels the NG tube irritates it. Pt states that when not using COPRA PROCESSOR throat pain is about 7/10, pt states pain is well controlled while using COPRA PROCESSOR and also gets relief with small sips of water and ice chips. NG tube clamped per orders, pt denied nausea all shift. Pt states no flatus this shift.
[2016-08-08] MEDS: Lactated Ringer's 1,000 ML IV SCH ×3 (07:43→19:34)
[2016-08-08] MEDS: Polyethylene Glycol (PEG) 17 Gm Powder PO SCH (10:01)
--- NOTE | 2016-08-08 15:42 | DRSVH ---
PROCEDURE: X-RAY CHEST ONE VIEW, PORTABLE ([id number]) INDICATIONS: SOB TECHNIQUE: One view of the chest was acquired. COMPARISON: [facility], CR, XR CHEST 1VW (PORTABLE), 08/06/2016, 14:48. [facility], CR, XR CHEST 1VW (PORTABLE), 08/06/2016, 13:11. [facility], CR, XR CHEST 1VW, 08/2016, 10:24. [facility], CR, XR CHEST 1VW (PORTABLE), 08/06/2016, 5:45. FINDINGS: Surgical changes and devices: Postoperative changes related to a prior median sternotomy are present. A nasogastric tube is seen extending below the diaphragm. The tip is not definitely seen. Lungs and pleura: There are low lung volumes, which does result in difficulty evaluating the lung bas es. Airspace disease at the left lung base is identified, which is slightly more prominent on the cu rrent exam. There may be interstitial prominence within the perihilar regions. No large effusion or pneumothorax is evident. Mediastinum: Mediastinal contours appear normal. Heart size is normal. Bones and chest wall: No suspicious bony lesions. Overlying soft tissues appear unremarkable. IMPRESSION: Continued left basilar airspace disease is suspicious for pneumonia, which may be slightly more promi nent on the current study. No new areas of consolidation. Dictated by: Garfield Heredia M.D. on 08/08/2016 at 14:34 Approved by: Garfield Heredia M.D. on 08/08/2016 at 14:40
--- NOTE | 2016-08-08 15:45 | PCM.PNMED ---
Subjective Date of Service Aug 08, 2016 Subjective Patient doing about the same today, not complaining of any abdominal pain, he has tolerated a clear liquid diet but has noticed a little bit increase distention in his abdomen. Not passing gas currently. No bowel movements. No chest pain, shortness of breath has remained about the same. Exam Vital Signs Vital Sign - Last Date Time Temp Pulse Resp B/P Pulse Ox O2 Delivery O2 Flow Rate FiO2 08/08/16 11:43 36.6 62 18 149/91 95 hiflow 20 08/08/16 08:46 40 Intake and Output 08/07/16 08/07/16 08/08/16 Cumulative From/Thru 15:00 23:00 07:00 08/06/16 03:58 - 08/08/16 05:54 Intake Total 1445 ml 1946 ml 9362 ml Output Total 350 ml 1025 ml 1100 ml 5375 ml Balance -350 ml 420 ml 846 ml 3987 ml Intake Oral 250 ml 500 ml 1050 ml IV Total 1195 ml 1446 ml 8312 ml Output Urine Total 1025 ml 1100 ml 2925 ml Gastric Drainage Total 350 ml 950 ml Emesis 1500 ml # Voids 0 # Bowel Movements 0 1 Exam General: Alert, Oriented X3, NAD Head: Normocephalic, atraumatic Eyes: RAISA, EOMI, no scleral Icterus Chest: Coarse breath sounds throughout Heart: Regular rate and rhythm. Normal S1, S2, no murmurs noted Abdomen: soft, non-tender. More distended today. Bowel sounds are normoactive. No guarding or rebound. Extremities: no cyanosis, clubbing or edema. IVs and Medications Medications Reviewed: Medications were reviewed in detail Lab and Diagnostics Result Diagram: 08/08/16 0325 08/08/16 0325 X-Rays, CTs and MRIs PROCEDURE: CT ABDOMEN AND PELVIS WITHOUT CONTRAST ([id number]) INDICATIONS: sbo, post gastrectomy and whipple TECHNIQUE: After the administration of oral contrast, 5 mm thick sections acquired from the diaphragms to the symphysis. 5 mm coronal and sagittal reformats were performed. For radiation dose reduction, the following was used: automated exposure control, adjustment of mA and/or kV according to patient size. COMPARISON: [facility], CR, XR CHEST 1VW (PORTABLE), 08/06/2016, 5: 45. FINDINGS: Image quality: Excellent. ABDOMEN: Lung bases: Bibasilar dependent atelectasis. Heart size is normal. There is severe coronary calcification and CABG. Solid organs: Left hepatic lobe is absent, likely surgically resected. There is pneumobilia. A 10 mm hypodensity in the posterior segment of the right hepatic lobe is noted, probably a cyst. Spleen is normal in size. Gallbladder is surgically absent. Pancreas is normal in size. No adrenal nodules. Both kidneys are normal in size, without hydronephrosis. There is a 3 mm non- obstructive stone in the superior pole of the right kidney. Bilateral exophytic renal cysts are present. Peritoneum and bowel: Surgical sutures seen in the stomach. Small bowel loops are distended measuring up to 4.5 cm. There are differential air-fluid levels. No transitional point is identified. There is abundant colonic gas. No free fluid or air. Nodes and vessels: No retroperitoneal or mesenteric adenopathy by size criteria. Aorta and inferior vena cava are normal in size. Miscellaneous: No ventral hernias. PELVIS: Genitourinary: Bladder wall thickness is normal. Miscellaneous: No inguinal hernias or adenopathy. Bones: No suspicious bony lesions. Mild compression deformity in L2, L3 and L4. IMPRESSION: 1. Distended small bowel to measure up to 4.5 cm. There is no transitional point identified. Abundant colonic gas is present. Differential diagnosis includes early small or partial small bowel obstruction versus ileus. Recommend clinical correlation and followup. 2. A 3 mm non-obstructive renal cyst in the superior pole. 3. Bilateral renal cysts. No significant discrepancy with the night worker radiology preliminary report. Assessment & Plan This is a 81-year-old man admitted with small bowel obstruction who later developed a left lower lobe pneumonia, likely secondary to aspiration. This resulted in respiratory failure necessitated transfer to PCU for closer observation and respiratory support. Aspiration event was likely secondary to placement of his NG tube which is close significant pain for him and required initiation of THERAPEUTIC RECREATION LEADER. Small bowel obstruction: acute, active abdominal pain, nausea, vomiting, POA, likely SBO vs ileus, based on CT abd, multiple bowel surgical hx -Continue NG tube, he has tolerated his advanced diet however he is more distended today. If he worsens we will need to re-clamp and make nothing by mouth -Surgery is following -hcrist for n/v -pain control now with fentanyl THERAPEUTIC RECREATION LEADER for now, pt does have allergy to dilaudid- rash. Switch to oral dosing when able Aspiration pneumonia: -Continue Zosyn -Albuterol as needed -We will repeat chest x-rays he has not improved. Coronary artery disease -s/p CABG, continue home asa, BB, statin, lasix Hyperlipidemia, -continue simvastatin Hypertension, -continue atenolol asthma, -neb tx as needed CKDII, POA, - Cr close to baseline, slightly worse, avoid renal toxin, adjust meds renally CODE STATUS: Full code DVT prophylaxis: SCDs Disposition: Likely home at discharge, pending hospital course. VTE Mechanical Devices: Intermittant Pneumatic CD Barry Hogue DO Aug 08, 2016 15:45
--- NOTE | 2016-08-08 15:48 | PROG NOTE ---
[address] [address] PROGRESS NOTE PATIENT: THAI LEDBETTER : 1935 MR#: [id number] ADMIT: 08/06/2016 JOB ID: [id number] DATE: 08/08/2016 SUBJECTIVE: The patient is seen for further surgical input into the management of his partial small bowel obstruction. Yesterday Dr. Hogue ordered clamping of his NG tube. He started him on clear liquids. The patient has not passed gas nor has he had a bowel movement but he also has not had nausea or vomiting. REVIEW OF SYSTEMS: Feels weak but otherwise no specific complaints. Pneumonia is also obviously being managed by Dr. Cuello. PHYSICAL EXAMINATION: Temperature is 36.6, brachial blood pressure 149/91, pulse 62, respiratory rate 18, O2 sat is 95%. Abdomen I think a little more distended today than yesterday. He demonstrates no tenderness. LABORATORY RESULTS: White count is up a little bit to 11.7, probably not significant. Platelet count has fallen to 108. Creatinine has fallen to 1.3. IMPRESSION: Partial or complete bowel obstruction. Dr. Cuello from the hospitalist team appears to have taken over management of this problem. Please contact surgery if you need us to be involved. Otherwise surgery will sign off.
--- NOTE | 2016-08-08 16:55 | NUR ---
Social Work: Readiness for Discharge D: Pt discussed in am rounds. Pt remains with clamped NG tube in place . Pt is still not medically stable for discharge at this time as his respiratory status and SBO is still not fully improved. Anticipate pt to require another 1-2 more days of hospitalizaiton based on current clinical presentation. Pt has been I with ambulation to bathroom and to BSC suggesting pt will not likely require SNF. Pt may benefit from HH however pt has been unable to ambulate long distances due to NG tube. BLOOD BANK CREDIT CLERK will discuss pt's discharge options with MD and RN tomorrow in am rounds. Pt's preference is for [facility] if he is to discharge with HH. A: Pt who is I at baseline and lives at home alone. P: Anticipate pt to discharge home when medically stable; BLOOD BANK CREDIT CLERK to rule out HH and provide referrals if necessary. YVAN Garcia
--- NOTE | 2016-08-08 19:33 | NUR ---
SOB/High Flow/No Flatus Cardiac: Pt denies CP. Tele SR 90s w/ very frequent PVCs in couplets and triplets. Resp: Pt reports SOB with conversing and activity, SPo2 97% on High flow 55L/70%. Pt desats down to high 80s with activity. Cont. pulse ox on. GI/: Denies N/V, NG clamped, states no flatus at this time, mirilax and doc given this AM. Pt tolerating clear liquid diet. Neuro: Pt A&O, ZOHREH
[2016-08-09] VITALS (17 sets, daily range): BP systolic 105–125; BP diastolic 56–76; PULSE 44–97; RESP 17–28; O2SAT 90–97
[2016-08-09] MEDS: Piperacillin-Tazo 3.375 Gm Inj 3.375 GM in Dextrose 5% Minibag Plus 50 ML IV SCH ×4 (01:04→18:36)
[2016-08-09] MEDS: 0.9% Sodium Chloride 1,000 ML IV SCH ×3 (02:18→10:18)
--- NOTE | 2016-08-09 04:04 | NUR ---
GI/ Respiratory: NGT remains clamped overnight. Pt denies any nausea/ vomiting. Stool softener/ laxative given at HS as ordered. Pt up to BSC and had an extra large, soft, light brown BM. Pt remains on high flow at 50l 70%. sp02 monitiored via ENVIRONMENTAL CHANGE ANALYST- sats mid to hihg 90s. Pt continues with productive cough.
[2016-08-09 04:08] LABS: Mean Corpuscular Hemoglobin 31.3 pg (27.0-35.0); Mean Corpuscular Volume 91.7 fL (81-100)
[2016-08-09] MEDS: Polyethylene Glycol (PEG) 17 Gm Powder PO SCH (08:30)
--- NOTE | 2016-08-09 09:50 | NUR ---
O2/Stool softeners RT transitioned pt to 6 L NC. Pt SPO2 92%. Pt refusing FiO2. Pt refusing stool softeners until NG Tube out. Notified MD. Care continues.
--- NOTE | 2016-08-09 10:24 | NUR ---
YVETTE YVETTE signed
[2016-08-09] MEDS: Albuterol 2.5 mg/3 mL Inhalation Solution NEB PRN ×2 (11:26→15:31)
--- NOTE | 2016-08-09 13:13 | NUR ---
NUTRITION ASSESSMENT: ASSESS: Pt is a 81yo M admitted for SBO. His NGT is to be removed today. He is tolerating CL diet. He was able to have multiple BMs over the last day and abdomen distention has improved PMHX: CAD, pancreatic ca, HTN, HLD LABS: Reviewed. Na 145, Cl 112, CO2 17, Glu 124, Ca 7.7, Alb 3.8 MEDS: Reviewed. Miralax, senna, zofran GI: BMx3 08/09, NGT removed SKIN: Eduardo 15, no major issues CURRENT WTS: 101.2kg, BMI 27.2kg/m2, admit wt: 99.6kg DIET: CL, PO sips-25% EST. NEEDS: Kcals: 2530-3035kcal/day (25-30kcal/kg) Pro: 100-120g/day (1.0-1.2g/kg) NUTRITION DIAGNOSIS: 1.) Inadequate oral intake related to decreased ability to consume sufficient energy as evidenced by current CL diet order NUTRITION INTERVENTION: 1.) Recommend advance diet when medically appropriate MONITOR / EVAL: diet advance, gi, PO, wt, labs, POC, nutrition status. Will continue to monitor per high nutrition risk guidelines.
[2016-08-09] MEDS: Lactated Ringer's 1,000 ML IV SCH (13:43)
--- NOTE | 2016-08-09 13:53 | NUR ---
Social Work: Readiness for Discharge (continued) D: Pt discussed in am rounds. Pt is not medically stable for discharge at this time. Pt NG Tube discontinued along with MAIL ORDER BILLER pump. Pt has been ambulating SBA-1PA. RETAIL LOAN ORIGINATOR discussed possible HH for the pt in am rounds. agrees and signed F2F. RETAIL LOAN ORIGINATOR met with pt at bedside to discuss discharge plan and recommendations for HH. Pt states that he has not ambulated due to pain but feels that he could do it if needed. At this time, the pt is declining home health. RETAIL LOAN ORIGINATOR reviewed possible risks of d/c without supportive services. Pt expressed understanding. RETAIL LOAN ORIGINATOR contact info provided to pt along with HH CHOICE LIST for pt's reference. A: Pt who is I at baseline. P: Anticipate pt to discharge home with no sw needs; Pt's DIL to transport. RETAIL LOAN ORIGINATOR to continue to follow. YVAN Garcia
--- NOTE | 2016-08-09 16:44 | NUR ---
Respiratory HFNC on stand-by in room
--- NOTE | 2016-08-09 18:18 | NUR ---
Sanket Punctured bag. Call pharmacy at approximately [phone]. Waiting for new bag to be sent up. Care continues.
--- NOTE | 2016-08-09 18:21 | NUR ---
O2/Headache Pt tolerating 4.5 L NC SPO2 95%. Denies SOB. States he has headache, asking for Tylenol. Dimmed lights, turned down TV, closed door. Notified MD. Care continues.
[2016-08-10] VITALS (12 sets, daily range): BP systolic 110–144; BP diastolic 62–88; PULSE 43–86; RESP 18–30; O2SAT 90–97
[2016-08-10] MEDS: Piperacillin-Tazo 3.375 Gm Inj 3.375 GM in Dextrose 5% Minibag Plus 50 ML IV SCH ×3 (01:25→16:46)
[2016-08-10] MEDS: Albuterol 2.5 mg/3 mL Inhalation Solution NEB PRN ×2 (02:28→17:01)
--- NOTE | 2016-08-10 04:23 | NUR ---
Zosyn: Day RN accidentally scanned 0030 dose of Zosyn ( as original bag was punctured and new bag was needed from pharmacy). 0030 dose still hung, scanned as "unscheduled administration"
--- NOTE | 2016-08-10 04:25 | NUR ---
Respiratory/ GI/ Restlessness Sp02 maintained on 4-6 L NC overnight. Sp02 monitored via TABLET MAKING MACHINE OPERATOR- sats mid 90s. pt does desat with activity, recovers with rest. Pt continues to have loose, watery, diarrhea - HS senna and Colace held. Pt very restless intermittently overnight. States he has not slept in days. Bed exchanged in attempts to provide pt with more comfort. 12.5 mg IV Benadryl given with good results, pt sleeping intermittently.
--- NOTE | 2016-08-10 05:41 | NUR ---
High flow: Pt had been previously tolerating NC @ 5 L overnight. Pt awoke @0530 c/o "labored breathing" 02 sat mid 90s. Pt states previous neb tx was unhelpful with SOB. RT notified. Pt stated back on high flow @50l And 50%
[2016-08-10] MEDS: Polyethylene Glycol (PEG) 17 Gm Powder PO SCH (07:32)
[2016-08-10 11:12] LABS: BASOPHILS % (AUTO) 0.1 % (0-3); EOSINOPHILS % (AUTO) 0.3 % (0-5); MONOCYTES % (AUTO) 8.5 % (4-12); Mean Corpuscular Hemoglobin 31.1 pg (27.0-35.0); Mean Corpuscular Volume 90.9 fL (81-100); NEUTROPHILS % (AUTO) 83.8 % (40-74); Platelet Count 100 bil/L (150-400)
--- NOTE | 2016-08-10 13:37 | NUR ---
Nausea/O2/Weakness Pt stated he was nauseous mid morning. Repositioned pt. MD aware. Pt stated it passed upon lying down. Pt placed on NC 5 L, SPO2 95%. Pt tolerating well. Pt states he is getting weaker. Listened and encouraged pt. aware. Care continues.
--- NOTE | 2016-08-10 17:30 | NUR ---
Pt. instructed in PEP Therapy use and "Antunez" cough to help mobilize secretions. Performed correct technique. Able to effectively cough moderate thick dark yellow/jane mucus with therapy.
--- NOTE | 2016-08-10 17:53 | PCM.PNMED ---
Subjective Date of Service Aug 10, 2016 Subjective Patient resting in bed when I visit with him, mild distress today. The patient is worried about imminent . He states he feels very ill, short of breath with any activity now with new nausea no vomiting no abdominal pain. He has had continued diarrhea. No chest pain. Did discuss the patient with his daughter today who states that he has been under a lot of emotional distress after the passing of his son a few weeks ago. Exam Vital Signs Vital Sign - Last Date Time Temp Pulse Resp B/P Pulse Ox O2 Delivery O2 Flow Rate FiO2 08/10/16 17:04 53 22 93 Nasal Cannula 3.00 08/10/16 16:34 36.4 144/88 08/10/16 09:30 50 Intake and Output 08/09/16 08/09/16 08/10/16 Cumulative From/Thru 15:00 23:00 07:00 08/06/16 03:58 - 08/10/16 06:12 Intake Total 1038 ml 745 ml 38695 ml Output Total 2000 ml 300 ml 8800 ml Balance -962 ml 445 ml 7187 ml Intake Oral 1038 ml 520 ml 4418 ml IV Total 225 ml 43851 ml Output Urine Total 800 ml 300 ml 5150 ml Stool Total 1200 ml 1200 ml Gastric Drainage Total 950 ml Emesis 1500 ml # Voids 2 4 # Bowel Movements 3 4 11 Exam General: Alert, Oriented X3, mild distress Head: Normocephalic, atraumatic Eyes: RAISA, EOMI, no scleral Icterus Chest: Coarse breath sounds throughout, left greater than right Heart: Regular rate and rhythm. Normal S1, S2, no murmurs noted Abdomen: soft, non-tender. Mild distention, bowel sounds are normoactive and improved today. No guarding or rebound. Extremities: no cyanosis, clubbing or edema. IVs and Medications Medications Reviewed: Medications were reviewed in detail Lab and Diagnostics Result Diagram: 08/10/16 1057 08/10/16 1057 X-Rays, CTs and MRIs PROCEDURE: CT ABDOMEN AND PELVIS WITHOUT CONTRAST ([id number]) INDICATIONS: sbo, post gastrectomy and whipple TECHNIQUE: After the administration of oral contrast, 5 mm thick sections acquired from the diaphragms to the symphysis. 5 mm coronal and sagittal reformats were performed. For radiation dose reduction, the following was used: automated exposure control, adjustment of mA and/or kV according to patient size. COMPARISON: [facility], CR, XR CHEST 1VW (PORTABLE), 08/06/2016, 5: 45. FINDINGS: Image quality: Excellent. ABDOMEN: Lung bases: Bibasilar dependent atelectasis. Heart size is normal. There is severe coronary calcification and CABG. Solid organs: Left hepatic lobe is absent, likely surgically resected. There is pneumobilia. A 10 mm hypodensity in the posterior segment of the right hepatic lobe is noted, probably a cyst. Spleen is normal in size. Gallbladder is surgically absent. Pancreas is normal in size. No adrenal nodules. Both kidneys are normal in size, without hydronephrosis. There is a 3 mm non- obstructive stone in the superior pole of the right kidney. Bilateral exophytic renal cysts are present. Peritoneum and bowel: Surgical sutures seen in the stomach. Small bowel loops are distended measuring up to 4.5 cm. There are differential air-fluid levels. No transitional point is identified. There is abundant colonic gas. No free fluid or air. Nodes and vessels: No retroperitoneal or mesenteric adenopathy by size criteria. Aorta and inferior vena cava are normal in size. Miscellaneous: No ventral hernias. PELVIS: Genitourinary: Bladder wall thickness is normal. Miscellaneous: No inguinal hernias or adenopathy. Bones: No suspicious bony lesions. Mild compression deformity in L2, L3 and L4. IMPRESSION: 1. Distended small bowel to measure up to 4.5 cm. There is no transitional point identified. Abundant colonic gas is present. Differential diagnosis includes early small or partial small bowel obstruction versus ileus. Recommend clinical correlation and followup. 2. A 3 mm non-obstructive renal cyst in the superior pole. 3. Bilateral renal cysts. No significant discrepancy with the night time babysitter radiology preliminary report. Assessment & Plan This is a 81-year-old man admitted with small bowel obstruction who later developed a left lower lobe pneumonia, likely secondary to aspiration. This resulted in respiratory failure necessitated transfer to PCU for closer observation and respiratory support. Aspiration event was likely secondary to placement of his NG tube which is close significant pain for him and required initiation of PACKAGE CHECKER. Small bowel obstruction: acute, active abdominal pain, nausea, vomiting, POA, likely SBO vs ileus, based on CT abd, multiple bowel surgical hx -NG tube has been discontinued, nauseated today though still on a clear liquid diet no vomiting. -Surgery has signed off -zofran for n/v -Fentanyl PACKAGE CHECKER has been discontinued. He did require large amounts of fentanyl with the NG tube, may be having some symptoms of withdrawal Aspiration pneumonia: -Continue Zosyn -Albuterol as needed Coronary artery disease -s/p CABG, continue home asa, BB, statin, lasix Hyperlipidemia, -continue simvastatin Hypertension, -continue atenolol asthma, -neb tx as needed CKDII, POA, - Cr close to baseline, avoid renal toxin, adjust meds renally CODE STATUS: Full code DVT prophylaxis: SCDs Disposition: Likely home at discharge, pending hospital course. VTE Mechanical Devices: Intermittant Pneumatic CD Barry Hogue DO Aug 10, 2016 17:53
[2016-08-10] MEDS: guaiFENesin 20 mg/mL 10 mL Syrup PO PRN (18:01)
--- NOTE | 2016-08-10 18:23 | NUR ---
Cough/Appetite Pt cough very thick, yellowish/slight red tint mucous. Pt having difficulty coughing up mucous. Wheezing and course breathing. Asked RT for treatment and recommendation for cough. Notified MD. RT performed treatment and PEP treatment. Guaifenesin administered per MD order. Pt on 3 L NC SPO2 95%. Pt tolerated treatment. Up and drinking clear liquid diet.
[2016-08-10] MEDS ORDERED: 0.9% Sodium Chloride 1,000 ML IV SCH (18:40)
[2016-08-11] VITALS (10 sets, daily range): BP systolic 105–156; BP diastolic 68–89; PULSE 50–127; RESP 16–30; O2SAT 92–94
[2016-08-11] MEDS: guaiFENesin 20 mg/mL 10 mL Syrup PO PRN
[2016-08-11 04:07] LABS: BASOPHILS % (AUTO) 0.3 % (0-3); EOSINOPHILS % (AUTO) 0.8 % (0-5); MONOCYTES % (AUTO) 12.8 % (4-12); Mean Corpuscular Volume 90.2 fL (81-100); NEUTROPHILS % (AUTO) 78.3 % (40-74); Platelet Count 95 bil/L (150-400)
--- NOTE | 2016-08-11 05:56 | NUR ---
Respiratory Patient continues on 3L O2 by nasal cannula, SpO2 95%. Persistent cough with thick, fontana/greenish sputum. Denies pain. Coarse breath sounds throughout the lung nash. Continue to monitor.
[2016-08-11] MEDS: Polyethylene Glycol (PEG) 17 Gm Powder PO SCH (08:30)
[2016-08-11] MEDS: Albuterol 2.5 mg/3 mL Inhalation Solution NEB PRN (09:56)
[2016-08-11] MEDS: Piperacillin-Tazo 3.375 Gm Inj 3.375 GM in Dextrose 5% Minibag Plus 50 ML IV SCH ×4 (10:04→20:08)
--- NOTE | 2016-08-11 12:01 | DRSVH ---
PROCEDURE: X-RAY KUB ([id number]) INDICATIONS: Small bowel obstruction TECHNIQUE: One view of the abdomen acquired. COMPARISON: [facility], CR, XR CHEST 1VW (PORTABLE), 08/08/2016, 15:01. FINDINGS: Surgical changes and devices: None. Bowel: Dilated upper abdominal small bowel loops measuring up to 4.6 cm. No definite transition point is seen although the distal bowel in the left and right lower quadrants is relatively decompressed. Few scattered air-fluid levels Soft tissues: No suspicious abdominal calcifications. Visualized solid organ contours appear normal in size. Bones: No suspicious bony lesions. Lateral curvature of the spine and discogenic changes IMPRESSION: Small bowel obstruction as above. Dictated by: Malik Mijares M.D. on 08/11/2016 at 11:55 Approved by: Malik Mijares M.D. on 08/11/2016 at 11:59
[2016-08-11] MEDS ORDERED: Potassium Chloride Inj 20 MEQ in Dextrose 5% 250 ML IV ONE (13:40)
[2016-08-11] MEDS ORDERED: MeTOProlol 1 mg/mL 5 mL Inj IVPUSH ONE (13:40)
--- NOTE | 2016-08-11 14:59 | NUR ---
Social Work Note: Continued Discharge Planning Data& Assessment: Per MD pt is not medically ready for discharge at this time. Pt may have another obstruction and is currently experiencing AFIB. SW met with pt and pt daughter Homa at bedside to check in and assess for any unmet needs. Pt is just anxious to medically improve. SW discussed home health again with (pt had previously declined). Pt explained he is unsure if he will be homebound, due to his desire to visit his who lives in at [facility]. Pt is currently requiring 3L of oxygen at this time and does not require oxygen at baseline. Pt agreed to think about the possibility of HH and see how is strength and mobility is closer to DC. Pt and pt daughter deny any other needs at this time. SW to continue to follow. Plan: Anticipated discharge home when medically ready. SW to r/o home health services. Pt and pt daughter deny any other needs at this time. SW to continue to follow. YVAN Santizo
--- NOTE | 2016-08-11 15:06 | NUR ---
YVETTE Signed YVAN Santizo
--- NOTE | 2016-08-11 15:18 | NUR ---
Telemetry: Afib RVR, VTACH Patient has been Sinus Rhythm 70-90s with persistent bigeminal PVCs. At 13:31 patient converted to Afib in the 140-160s, briefly touching the 180s. HR has been 130-140s since 14:18. Patient had multiple runs of VTACH during this time. 13:32 - 5bt 13:39 - 5bt 13:51 - 7bt 14:11 - 7bt 14:14 - 6bt 14:46 - 5bt 15:08 - 7bt 15:19 - 7bt AKUA Caputo aware of Afib and VT runs. Will continue to monitor. Addendum: 08/11/16 at 1758 by NAPOLEON DICKSON VTACH 15:50 - 5bt 16:07 - 5bt AKUA Caputo aware.
--- NOTE | 2016-08-11 15:19 | PCM.PNMED ---
Subjective Date of Service Aug 11, 2016 Subjective Patient sitting up with Center bed when I visit with him. His is present today. States that he has increasing abdominal pain and distention, some nauseous, still no vomiting. Continued loose bowel movements. No chest pain. Shortness of breath continues, unchanged. Exam Vital Signs Vital Sign - Last Date Time Temp Pulse Resp B/P Pulse Ox O2 Delivery O2 Flow Rate FiO2 08/11/16 13:00 36.5 68 18 129/72 94 Nasal Cannula 3.00 08/10/16 09:30 50 Intake and Output 08/10/16 08/10/16 08/11/16 Cumulative From/Thru 15:00 23:00 07:00 08/06/16 03:58 - 08/11/16 06:10 Intake Total 1312 ml 1170 ml 92281 ml Output Total 750 ml 375 ml 9925 ml Balance 562 ml 795 ml 8544 ml Intake Oral 1290 ml 400 ml 6108 ml IV Total 22 ml 770 ml 97399 ml Output Urine Total 750 ml 375 ml 6275 ml Stool Total 1200 ml Gastric Drainage Total 950 ml Emesis 1500 ml # Voids 2 6 # Bowel Movements 2 2 15 Exam General: Alert, Oriented X3, NAD Head: Normocephalic, atraumatic Eyes: RAISA, EOMI, no scleral Icterus Chest: Coarse breath sounds throughout, left greater than right. No wheezing Heart: Regular rate and rhythm. Normal S1, S2, no murmurs noted Abdomen: More distended today, bowel sounds are more hypoactive today. Mild generalized pain to palpation. Extremities: no cyanosis, clubbing or edema. IVs and Medications Medications Reviewed: Medications were reviewed in detail Lab and Diagnostics Result Diagram: 08/11/16 0335 08/11/16 0335 X-Rays, CTs and MRIs PROCEDURE: CT ABDOMEN AND PELVIS WITHOUT CONTRAST ([id number]) INDICATIONS: sbo, post gastrectomy and whipple TECHNIQUE: After the administration of oral contrast, 5 mm thick sections acquired from the diaphragms to the symphysis. 5 mm coronal and sagittal reformats were performed. For radiation dose reduction, the following was used: automated exposure control, adjustment of mA and/or kV according to patient size. COMPARISON: [facility], CR, XR CHEST 1VW (PORTABLE), 08/06/2016, 5: 45. FINDINGS: Image quality: Excellent. ABDOMEN: Lung bases: Bibasilar dependent atelectasis. Heart size is normal. There is severe coronary calcification and CABG. Solid organs: Left hepatic lobe is absent, likely surgically resected. There is pneumobilia. A 10 mm hypodensity in the posterior segment of the right hepatic lobe is noted, probably a cyst. Spleen is normal in size. Gallbladder is surgically absent. Pancreas is normal in size. No adrenal nodules. Both kidneys are normal in size, without hydronephrosis. There is a 3 mm non- obstructive stone in the superior pole of the right kidney. Bilateral exophytic renal cysts are present. Peritoneum and bowel: Surgical sutures seen in the stomach. Small bowel loops are distended measuring up to 4.5 cm. There are differential air-fluid levels. No transitional point is identified. There is abundant colonic gas. No free fluid or air. Nodes and vessels: No retroperitoneal or mesenteric adenopathy by size criteria. Aorta and inferior vena cava are normal in size. Miscellaneous: No ventral hernias. PELVIS: Genitourinary: Bladder wall thickness is normal. Miscellaneous: No inguinal hernias or adenopathy. Bones: No suspicious bony lesions. Mild compression deformity in L2, L3 and L4. IMPRESSION: 1. Distended small bowel to measure up to 4.5 cm. There is no transitional point identified. Abundant colonic gas is present. Differential diagnosis includes early small or partial small bowel obstruction versus ileus. Recommend clinical correlation and followup. 2. A 3 mm non-obstructive renal cyst in the superior pole. 3. Bilateral renal cysts. No significant discrepancy with the webfed offset press operator radiology preliminary report. Assessment & Plan This is a 81-year-old man admitted with small bowel obstruction who later developed a left lower lobe pneumonia, likely secondary to aspiration. This resulted in respiratory failure necessitated transfer to PCU for closer observation and respiratory support. Aspiration event was likely secondary to placement of his NG tube which is close significant pain for him and required initiation of CASING IN LINE FEEDER. Small bowel obstruction: acute, active abdominal pain, nausea, vomiting, POA, likely SBO vs ileus, based on CT abd, multiple bowel surgical hx -NG tube has been discontinued, nauseated the last couple days, though still on a clear liquid diet no vomiting. -Discussed with surgery for reevaluation. -zofran for n/v -Fentanyl CASING IN LINE FEEDER discontinued, no current opiates. He did require large amounts of fentanyl with the NG tube, may be having some symptoms of withdrawal Aspiration pneumonia: -Continue Zosyn -Albuterol as needed Emotional distress/depression: -Patient under a lot of pressure, son recently . -Agreeable to trial Zoloft. Coronary artery disease -s/p CABG, continue home asa, BB, statin, lasix Hyperlipidemia, -continue simvastatin Hypertension, -continue atenolol asthma, -neb tx as needed CKDII, POA, - Cr close to baseline, avoid renal toxin, adjust meds renally CODE STATUS: Full code DVT prophylaxis: SCDs Disposition: Likely home at discharge, pending hospital course. VTE Mechanical Devices: Intermittant Pneumatic CD Barry Hogue DO Aug 11, 2016 15:19
--- NOTE | 2016-08-11 15:29 | NUR ---
Diarrhea Pt continues to be incontinent. Two massive loose stools in nine hours. Pt states his stomach is still distended. MD notified. Care continues.
[2016-08-11] MEDS ORDERED: DIATRIZOATE SODIUM PO ONE (16:45)
[2016-08-11] MEDS ORDERED: DIATRIZOATE MEGLUMINE PO ONE (16:45)
--- NOTE | 2016-08-11 19:07 | PROG NOTE ---
[address] [address] PROGRESS NOTE PATIENT: THAI LEDBETTER : 1935 MR#: [id number] ADMIT: 08/06/2016 JOB ID: [id number] DATE: 08/11/2016 SUBJECTIVE: The patient is seen in followup from the surgical service. We had signed off but we are asked to get back involved today by Dr. Hogue, because the patient has not made significant progress. He still complains of abdominal distention, but on the other hand, he is having ongoing loose stools. He denies nausea. He has been did drinking clear liquids for several days. Today, a plain x-ray was obtained of the abdomen which shows dilated loops of small bowel up to 4.6 cm. There is no definite transition point, but the right and left lower quadrants are relatively decompressed. The other new aspect is that he has gone into atrial fibrillation today. He denies chest pain. OBJECTIVE: Temperature 36.8, pulse 126, respirations 30, blood pressure 129/89, saturation 94% on 3 L. General: He is resting in bed in no acute distress. Chest is clear. Heart: Irregularly irregular. No murmurs. Abdomen is soft, but mildly distended. Bowel tones are present and sound fairly normal. He has a midline scar without evidence of hernia. He has no guarding, no rebound tenderness. LABORATORIES: White blood cell count is 6.6, hematocrit 35.8, platelets 95. Potassium 3.1, bicarb 17, creatinine 0.88. Glucose 132, calcium 7.7. Magnesium 2.1. ASSESSMENT AND PLAN: A 81-year-old man with ongoing partial small bowel obstruction. I do not think he is going to require surgical intervention because he continues to have quite a bit of loose stool. Nonetheless, he is not back to normal. He has been drinking quite a bit of clear liquids, so I recommended that he be n.p.o. Electrolytes should be managed more aggressively, and especially his a low potassium needs to be corrected. I recommend a Gastrografin challenge which involves administration of one bottle of Gastrografin by mouth. Plain abdominal x-rays will then be obtained tomorrow morning. If the contrast has passed through to the colon, he does not require surgical intervention. If the contrast remains in his small bowel at that time, then exploratory laparotomy could be considered. Gastrografin is both diagnostic and therapeutic for bowel obstructions. All his questions were answered.
[2016-08-11] MEDS: Diltiazem Inj 125 MG in 0.9% Sodium Chloride 100 ML, Pharmacy To Mix 1 EA IV SCH (19:24)
--- NOTE | 2016-08-11 19:33 | NUR ---
Afib Pt converted to AFib at 1332 per bus monitor, with 5 beats of Vtach. MD notified. Medication administered. Pt ectopy and HR continued to increase to 180s. MD notified. Diltiazem drip administered. Start at 5mg. Pt on MP30, continued monitoring. BP stable. Care continues.
[2016-08-12] VITALS (9 sets, daily range): BP systolic 110–133; BP diastolic 66–96; PULSE 69–110; RESP 21–32; O2SAT 90–93
[2016-08-12] MEDS: Dextrose 5% Lactated Ringer's 1,000 ML IV SCH ×3 (00:09→12:40)
[2016-08-12] MEDS: Piperacillin-Tazo 3.375 Gm Inj 3.375 GM in Dextrose 5% Minibag Plus 50 ML IV SCH ×3 (00:30→16:27)
[2016-08-12 04:20] LABS: BASOPHILS % (AUTO) 0.9 % (0-3); EOSINOPHILS % (AUTO) 1.4 % (0-5); MONOCYTES % (AUTO) 8.8 % (4-12); Mean Corpuscular Hemoglobin 31.2 pg (27.0-35.0); NEUTROPHILS % (AUTO) 75.8 % (40-74); Platelet Count 129 bil/L (150-400)
--- NOTE | 2016-08-12 04:36 | NUR ---
Tele Patient in a-fib with rates into the 130s with 4-6 beat runs of v-tach at start of shift. Diltiazem gtt running at 7; titrated up to 11 ml/hour over the course of the shift. Patient converted to sinus rhythm with rates in the 70s at 0423. Continue to monitor.
[2016-08-12] MEDS: Diltiazem Inj 125 MG in 0.9% Sodium Chloride 100 ML, Pharmacy To Mix 1 EA IV SCH ×2 (05:43→15:58)
--- NOTE | 2016-08-12 06:00 | DRSVH ---
[facility] [address] [place] [address] Echocardiogram Report Name: THAI LEDBETTER JStudy Date: 08/11/2016 Height: 76 in Hospital Exam Location: [facility] Weight: 222 lb Gender: Male BSA: 2.3 m2 : 1935 Age: 81 yrs BP: 129/72 mmHg Reason For Study: New onset Atrial fibrillation History: CABG Ordering Physician: Performed By: Lay Urbina HOSPITALIST [facility] Interpretation Summary Technically difficult study limiting valve visualization. 1) Mild concentric left ventricular hypertrophy with normal size. 2) Grossly normal systolic function, but assessment of LV function and wall motion limited by poor controlled ventricular rate due to atrial fibrillation. 3) Gross normal right ventricular size with mildly reduced function. 4) No significant valvular disease. 5) No prior Echo available for comparison. Recommend repeat Echo once patient's atrial fibrillation is better rate controlled. Procedure: A two-dimensional transthoracic echocardiogram with color flow and Doppler was performed. The study quality was technically difficult. A contrast injection of Definity was performed to improve assessment of LV function. No complications noted with the use of Definity. There is no prior echocardiogram noted for this patient. The patient was in atrial fibrillation with heart rates between 99-155 bpm during the exam. The patient had frequent PVCs during the exam. Left Ventricle: The left ventricle is normal in size. Left ventricular wall thickness is mildly increased. The left ventricular ejection fraction is grossly normal. Assessment of LV function and wall motion limited by poor controlled ventricular rate due to atrial fibrillation. Diastolic function could not be accurately assessed due to atrial fibrillation. Right Ventricle: The right ventricle is not well visualized. The right ventricle is grossly normal size. Right ventricular systolic function is mildly reduced. Atria: The left atrium grossly appears normal in size. The right atrium grossly appears normal in size. Mitral Valve: The mitral valve leaflets are mildly calcified. There is no mitral regurgitation noted. Aortic Valve: The aortic valve is not well visualized. The aortic valve is mildly calcified. There is no aortic valve stenosis. There is trace aortic regurgitation. Tricuspid Valve: The tricuspid valve is not well visualized. Pulmonary artery pressures cannot be estimated because of the lack of a measurable TR jet velocity. Pulmonic Valve: The pulmonic valve is not well seen, but is grossly normal. There is a trace or physiologic amount of pulmonic regurgitation. Great Vessels: The aortic root is normal size. The ascending aorta could not be visualized. The inferior vena cava was not visualized. Pericardium/ Pleura There is no pericardial effusion. MMode/2D Measurements & Calculations LVIDd: 4.7 cm RA long axis LVOT diam LVIDs: 4.0 cm LA A2 area: 15.2 cm FS: 13.7 % LA A4 area: 22.9 cm RA area AoV Opening EPSS: 0.57 cm LA length (vol): 5.3 cm IVSd: 1.4 cm LA vol: 55.4 ml : 19.1 cm Ao root diam LVPWd: 1.2 cm LA vol index RA vol: 54.4 ml RA Aortic Jxn : 23.9 ml/m2 : 23.5 mm2 : 3.4 cm LV musa. diameter/BSA LV sys. diameter/BSA TAPSE: 1.2 cm (cm/m^2): 2.0 (cm/m^2): 1.7 Doppler Measurements & Calculations Ao V2 max MV E max mau Med Peak E' Mau PA V2 max : 111.5 cm/sec : 115.9 cm/sec : 71.8 cm/sec Ao max P.1 mmHg E/E' med: 9.4 PA mean PG Ao mean P.9 mmHg LVOT Max Mau PA Accel Time : 81.9 cm/sec : 0.08 sec WALESKA(I,D): 3.9 cm sev ratio: 0.95 MV dec time: 0.11 sec Ao V2 mean LV V1 max PG PA V2 mean : 80.1 cm/sec : 51.0 cm/sec Ao V2 VTI: 14.0 cmLV V1 VTI: 13.4 cm WALESKA(V,D): 3.0 cm2 WALESKA indexed to BSA (cm^2/m^2): 1.7 Reading Physician:03:43 PM
[2016-08-12] MEDS: Polyethylene Glycol (PEG) 17 Gm Powder PO SCH (08:30)
--- NOTE | 2016-08-12 12:50 | DRSVH ---
PROCEDURE: X-RAY KUB ([id number]) INDICATIONS: evaluate bowel obstruction TECHNIQUE: One view of the abdomen acquired. COMPARISON: [facility], CR, XR KUB, 08/11/2016, 10:49. FINDINGS: Surgical changes and devices: Multiple surgical vascular clips and coils are redemonstrated. Bowel: Residual contrast media seen within the transverse, left and rectosigmoid colon, otherwise the re is persistent gaseous distention of multiple small bowel loops. No pneumatosis or bowel wall thic kening. No pneumoperitoneum. Soft tissues: No suspicious abdominal calcifications. Visualized solid organ contours appear normal in size. Bones: No suspicious bony lesions. IMPRESSION: Findings suggesting persistent partial small bowel obstruction. Dictated by: Kadeem WILLSONA Interpreted: Saray Sorenson MD on 08/12/2016 at 12:49 Transcribed by: ANDREEA on 08/12/2016 at 12:50 Approved by: Saray Sorenson MD, PhD on 08/12/2016 at 17:19
--- NOTE | 2016-08-12 13:51 | PROG NOTE ---
[address] [address] PROGRESS NOTE PATIENT: THAI LEDBETTER : 1935 MR#: [id number] ADMIT: 08/06/2016 JOB ID: [id number] DATE: 08/12/2016 The patient is seen in followup. We were reconsulted to be involved for his bowel obstruction. Dr. Maxwell Palomo ordered a Gastrografin challenge yesterday. Today his contrast study does show contrast into the left colon and rectum. With the number of bowel movements he has had, I think that this is from yesterday's contrast and not from the CT scan. Also, he clearly drank it and he has not had nausea or vomiting. But his x-ray still shows dilated loops of small bowel. This is all consistent with a partial bowel obstruction or ileus. REVIEW OF SYSTEMS: He really wants to get out of bed. I think that would be the best for him. PHYSICAL EXAMINATION: He is alert, in no distress. Temperature is 36.5. Brachial blood pressure 122/67, pulse 78, currently sinus, with PVCs. Respiratory rate 22. O2 sat on 5 L, 93%. His abdomen is distended but soft, nontender. LABORATORY RESULTS: Electrolytes: Sodium 144, potassium 3.4, creatinine 1.06, glucose 124. Magnesium yesterday is 2.1. White blood cell count is 6.4, hematocrit 38.6, platelet count 129,000. IMPRESSION: Partial bowel obstruction. I suppose there is a possibility that some of this is aerophagia because of his respiratory distress and air swallowing, but I think that it is a diagnosis of exclusion, but it is clear that contrast has gone through his small bowel and into his colon. It is unlikely he will need surgical intervention. PLAN: He will be started on sips of clear liquids. TPN should be considered if he is not clearly improving by tomorrow.
--- NOTE | 2016-08-12 13:52 | NUR ---
NUTRITION FOLLOW UP: ASSESS: 81 yo M admitted for SBO. Pt is currently NPO, has been NPO/Clear liquids X 6 days = inadequate nutrition. Pt to have Gastrografin today. PMHX: CAD, pancreatic ca, HTN, HLD LABS: Reviewed. K+ 3.4, Glu 174, Ca 8.1 MEDS: Reviewed. GI: BM X 5 (08/12) SKIN: Eduardo 15, no major issues CURRENT WT: 99.9 kg, BMI 26.8 kg/m2, Admit wt: 99.6 kg DIET: NPO. Previous PO on clears: 25-50%. ESTIMATED NEEDS: Calories: 7944-7363 kcal/day (25-30 kcal/kg BW) Protein: 100-120 g/day (1.0-1.2g/kg BW) NUTRITION DIAGNOSIS: 1.) Inadequate oral intake related to decreased ability to consume sufficient energy as evidenced by current CL diet order---PERSISTS. NUTRITION INTERVENTION: 1.) If unable to advance diet in the next 24 hours consider nutrition support. MONITOR/EVALUATE: Diet advance, GI, NPO status, wt, labs, POC, nutrition status. Follow per high nutrition risk guidelines.
[2016-08-12] MEDS ORDERED: 0.9% Sodium Chloride 0 ML ONE (15:55)
--- NOTE | 2016-08-12 16:49 | NUR ---
Cardizem ggt Turned down Cardizem drip from 11mg/hr to 5mg/hr at 1600. At 1700 we will turn down to 2.5mg/hr. Pt still NSR 80's.
--- NOTE | 2016-08-12 17:28 | PCM.PNMED ---
Subjective Date of Service Aug 12, 2016 Subjective Patient resting in bed when I visit with him, his is at bedside. He states he feels a little bit better today, still very short of breath. Abdominal distention may be slightly better. However, he has not had a bowel movement today. No chest pain, no nausea vomiting. Abdominal pain continues but has decreased. Patient did go into A. ReplySend yesterday, no history previously. He was started on a Cardizem drip. To note, his atenolol had not been restarted. He is now in a sinus rhythm Exam Vital Signs Vital Sign - Last Date Time Temp Pulse Resp B/P Pulse Ox O2 Delivery O2 Flow Rate FiO2 08/12/16 17:16 36.9 87 32 120/70 92 Nasal Cannula 08/12/16 12:45 5.00 08/10/16 09:30 50 Intake and Output 08/11/16 08/11/16 08/12/16 Cumulative From/Thru 15:00 23:00 07:00 08/06/16 03:58 - 08/12/16 06:18 Intake Total 1050 ml 633 ml 07091 ml Output Total 602 ml 3050 ml 51457 ml Balance 448 ml -2417 ml 6575 ml Intake Oral 1040 ml 0 ml 7148 ml IV Total 10 ml 633 ml 25687 ml Output Urine Total 600 ml 6875 ml Stool Total 2 ml 1202 ml Urine/Stool Mix 3050 ml 3050 ml Gastric Drainage Total 950 ml Emesis 1500 ml # Voids 5 11 # Bowel Movements 5 20 Exam General: Alert, Oriented X3, NAD Head: Normocephalic, atraumatic Eyes: RAISA, EOMI, no scleral Icterus Chest: Coarse breath sounds throughout Heart: Regular rate and rhythm. Normal S1, S2, no murmurs noted Abdomen: Soft, moderate distention. Bowel sounds normoactive today. No guarding or rebound Extremities: no cyanosis, clubbing or edema. IVs and Medications Medications Reviewed: Medications were reviewed in detail Lab and Diagnostics Result Diagram: 08/12/16 [id number] X-Rays, CTs and MRIs PROCEDURE: CT ABDOMEN AND PELVIS WITHOUT CONTRAST ([id number]) INDICATIONS: sbo, post gastrectomy and whipple TECHNIQUE: After the administration of oral contrast, 5 mm thick sections acquired from the diaphragms to the symphysis. 5 mm coronal and sagittal reformats were performed. For radiation dose reduction, the following was used: automated exposure control, adjustment of mA and/or kV according to patient size. COMPARISON: [facility], CR, XR CHEST 1VW (PORTABLE), 08/06/2016, 5: 45. FINDINGS: Image quality: Excellent. ABDOMEN: Lung bases: Bibasilar dependent atelectasis. Heart size is normal. There is severe coronary calcification and CABG. Solid organs: Left hepatic lobe is absent, likely surgically resected. There is pneumobilia. A 10 mm hypodensity in the posterior segment of the right hepatic lobe is noted, probably a cyst. Spleen is normal in size. Gallbladder is surgically absent. Pancreas is normal in size. No adrenal nodules. Both kidneys are normal in size, without hydronephrosis. There is a 3 mm non- obstructive stone in the superior pole of the right kidney. Bilateral exophytic renal cysts are present. Peritoneum and bowel: Surgical sutures seen in the stomach. Small bowel loops are distended measuring up to 4.5 cm. There are differential air-fluid levels. No transitional point is identified. There is abundant colonic gas. No free fluid or air. Nodes and vessels: No retroperitoneal or mesenteric adenopathy by size criteria. Aorta and inferior vena cava are normal in size. Miscellaneous: No ventral hernias. PELVIS: Genitourinary: Bladder wall thickness is normal. Miscellaneous: No inguinal hernias or adenopathy. Bones: No suspicious bony lesions. Mild compression deformity in L2, L3 and L4. IMPRESSION: 1. Distended small bowel to measure up to 4.5 cm. There is no transitional point identified. Abundant colonic gas is present. Differential diagnosis includes early small or partial small bowel obstruction versus ileus. Recommend clinical correlation and followup. 2. A 3 mm non-obstructive renal cyst in the superior pole. 3. Bilateral renal cysts. No significant discrepancy with the evening or night nurse supervisor radiology preliminary report. Cardiac Echo Impressions Interpretation Summary Technically difficult study limiting valve visualization. 1) Mild concentric left ventricular hypertrophy with normal size. 2) Grossly normal systolic function, but assessment of LV function and wall motion limited by poor controlled ventricular rate due to atrial fibrillation. 3) Gross normal right ventricular size with mildly reduced function. 4) No significant valvular disease. 5) No prior Echo available for comparison. Recommend repeat Echo once patient's atrial fibrillation is better rate controlled. Assessment & Plan This is a 81-year-old man admitted with small bowel obstruction who later developed a left lower lobe pneumonia, likely secondary to aspiration. This resulted in respiratory failure necessitated transfer to PCU for closer observation and respiratory support. Aspiration event was likely secondary to placement of his NG tube which is close significant pain for him and required initiation of MORTGAGE MANAGER. The patient did have some improvement and was able to tolerate a diet with his NG tube clamped. The NG tube was eventually discontinued, however, the patient's condition has not improved significantly. Small bowel obstruction: acute, active abdominal pain, nausea, vomiting, POA, likely SBO vs ileus, based on CT abd, multiple bowel surgical hx -He was nothing by mouth yesterday except for Gastrografin -Surgery is reevaluated, Gastrografin study shows continued partial bowel obstruction versus ileus. -zofran for n/v -no current opiates. He did require large amounts of fentanyl with the NG tube. New-onset A. fib: -Echocardiogram pending, likely related to current illness. -Now in sinus rhythm -Correctable electrolyte -ween down Cardizem drip, he has been restarted on his atenolol. May not need Cardizem Aspiration pneumonia: -Continue Zosyn -Albuterol as needed Emotional distress/depression: -Patient under a lot of pressure, son recently . -Trialing Zoloft Coronary artery disease -s/p CABG, continue home asa, BB, statin, lasix Hyperlipidemia, -continue simvastatin Hypertension, -continue atenolol asthma, -neb tx as needed CKDII, POA, - Cr close to baseline, avoid renal toxin, adjust meds renally CODE STATUS: Full code DVT prophylaxis: SCDs Disposition: Likely home at discharge, pending hospital course. VTE Mechanical Devices: Intermittant Pneumatic CD Barry Hogue DO Aug 12, 2016 17:28
[2016-08-13] VITALS (8 sets, daily range): BP systolic 125–138; BP diastolic 62–78; PULSE 54–85; RESP 21–26; O2SAT 92–95
[2016-08-13] MEDS: Piperacillin-Tazo 3.375 Gm Inj 3.375 GM in Dextrose 5% Minibag Plus 50 ML IV SCH ×3 (00:42→17:00)
[2016-08-13] MEDS: Dextrose 5% Lactated Ringer's 1,000 ML IV SCH ×2 (00:42→13:35)
--- NOTE | 2016-08-13 04:01 | NUR ---
IV/Diarrhea/K D5 LR @ 80, iv Zosyn , C/O diarrhea for last 3 days , SBA to BSC, K-3.4. paged Hospitalist . 5 LO@ per oxy mask. Diet: clear sips . Tele: SR- bigeminal PVC's
[2016-08-13 05:02] LABS: Mean Corpuscular Hemoglobin 30.5 pg (27.0-35.0); Mean Corpuscular Volume 89.6 fL (81-100)
[2016-08-13] MEDS ORDERED: Potassium Chloride 20 mEq/15 mL 15mL Oral Soln PO ONE ×2 (05:35→12:50)
[2016-08-13] MEDS ORDERED: 0.9% Sodium Chloride 250 ML ONE (07:37)
[2016-08-13] MEDS: Polyethylene Glycol (PEG) 17 Gm Powder PO SCH (07:53)
[2016-08-13] MEDS ORDERED: Potassium Chloride 20 mEq SR Tablet PO ONE (11:10)
--- NOTE | 2016-08-13 11:31 | NUR ---
NUTRITION FOLLOW UP: ASSESS: 81 yo M admitted for SBO. Pt is currently NPO, has been NPO/Clear liquids X 7 days = inadequate nutrition. Pt had Gastrografin yesterday which showed persistent SBO or ileus. He was re-started of clear liquids. He has been passing gas and liquid stool. Per GI, pt may need to be started on TPN if he is not able to tolerate diet advance. PMHX: CAD, pancreatic ca, HTN, HLD LABS: Reviewed. K 3.2, Glu 145, Ca 7.7, Alb 3.8 MEDS: Reviewed. GI: BM X 5 (08/12) SKIN: Eduardo 19, no major issues CURRENT WT: 101.1kg, BMI 27.1 kg/m2, Admit wt: 99.6 kg DIET: CL, PO 25-50%, pt has been on CL/NPO diet x7 days= inadequate PO intake ESTIMATED NEEDS: Calories: 1495-2196 kcal/day (25-30 kcal/kg BW) Protein: 100-120 g/day (1.0-1.2g/kg BW) NUTRITION DIAGNOSIS: 1.) Inadequate oral intake related to decreased ability to consume sufficient energy as evidenced by current CL diet order---PERSISTS. NUTRITION INTERVENTION: 1.) If pt is unable to have diet advanced, recommend TPN be started at ~50% of needs. Recommend 215g Dex, 60g AA and 30g lipids to provide 1271kcal and 60g pro. If tolerated, advance towards goal macronutrients of 425g dex, 120g AA and 65g lipids to provide 2575kcal and 120g pro (100% estimated needs). 2.) Will add Ensure CL and Gelatein on all trays while pt remains on CL diet to help increase pro intake. MONITOR/EVALUATE: Diet advance, GI, TPN?, wt, labs, POC, nutrition status. Follow per high nutrition risk guidelines.
--- NOTE | 2016-08-13 14:10 | PCM.PNMED ---
Subjective Date of Service Aug 13, 2016 Subjective Less abdomen pain and nausea. No emesis. No chest pain, or cough. Still dyspneic. No fevers or chills. He is feeling better. No overnight events, RN notes reviewed. Exam Vital Signs Vital Sign - Last Date Time Temp Pulse Resp B/P Pulse Ox O2 Delivery O2 Flow Rate FiO2 08/13/16 12:55 84 08/13/16 12:23 36.8 26 138/78 92 Nasal Cannula 5.50 08/10/16 09:30 50 Intake and Output 08/12/16 08/12/16 08/13/16 Cumulative From/Thru 15:00 23:00 07:00 08/06/16 03:58 - 08/13/16 05:54 Intake Total 1631 ml 1229 ml 75618 ml Output Total 1252 ml 1400 ml 70417 ml Balance 379 ml -171 ml 6783 ml Intake Oral 560 ml 200 ml 7908 ml IV Total 1071 ml 1029 ml 33465 ml Output Urine Total 1250 ml 8125 ml Stool Total 2 ml 1400 ml 2604 ml Urine/Stool Mix 3050 ml Gastric Drainage Total 950 ml Emesis 1500 ml # Voids 11 # Bowel Movements 20 Exam Alert and oriented, no distress, fluent speech. Anicteric sclera. Lungs clear, normal effort and rate heart regular without murmur. Abdomen distended with hyperactive tones. Not tender. No leg edema, or rash. Normal pulses. IVs and Medications Medications Reviewed: Medications were reviewed in detail Lab and Diagnostics Result Diagram: 08/13/16 0427 08/13/16 0935 X-Rays, CTs and MRIs PROCEDURE: CT ABDOMEN AND PELVIS WITHOUT CONTRAST ([id number]) INDICATIONS: sbo, post gastrectomy and whipple TECHNIQUE: After the administration of oral contrast, 5 mm thick sections acquired from the diaphragms to the symphysis. 5 mm coronal and sagittal reformats were performed. For radiation dose reduction, the following was used: automated exposure control, adjustment of mA and/or kV according to patient size. COMPARISON: [facility], CR, XR CHEST 1VW (PORTABLE), 08/06/2016, 5: 45. FINDINGS: Image quality: Excellent. ABDOMEN: Lung bases: Bibasilar dependent atelectasis. Heart size is normal. There is severe coronary calcification and CABG. Solid organs: Left hepatic lobe is absent, likely surgically resected. There is pneumobilia. A 10 mm hypodensity in the posterior segment of the right hepatic lobe is noted, probably a cyst. Spleen is normal in size. Gallbladder is surgically absent. Pancreas is normal in size. No adrenal nodules. Both kidneys are normal in size, without hydronephrosis. There is a 3 mm non- obstructive stone in the superior pole of the right kidney. Bilateral exophytic renal cysts are present. Peritoneum and bowel: Surgical sutures seen in the stomach. Small bowel loops are distended measuring up to 4.5 cm. There are differential air-fluid levels. No transitional point is identified. There is abundant colonic gas. No free fluid or air. Nodes and vessels: No retroperitoneal or mesenteric adenopathy by size criteria. Aorta and inferior vena cava are normal in size. Miscellaneous: No ventral hernias. PELVIS: Genitourinary: Bladder wall thickness is normal. Miscellaneous: No inguinal hernias or adenopathy. Bones: No suspicious bony lesions. Mild compression deformity in L2, L3 and L4. IMPRESSION: 1. Distended small bowel to measure up to 4.5 cm. There is no transitional point identified. Abundant colonic gas is present. Differential diagnosis includes early small or partial small bowel obstruction versus ileus. Recommend clinical correlation and followup. 2. A 3 mm non-obstructive renal cyst in the superior pole. 3. Bilateral renal cysts. No significant discrepancy with the table games shift manager radiology preliminary report. Cardiac Echo Impressions Interpretation Summary Technically difficult study limiting valve visualization. 1) Mild concentric left ventricular hypertrophy with normal size. 2) Grossly normal systolic function, but assessment of LV function and wall motion limited by poor controlled ventricular rate due to atrial fibrillation. 3) Gross normal right ventricular size with mildly reduced function. 4) No significant valvular disease. 5) No prior Echo available for comparison. Recommend repeat Echo once patient's atrial fibrillation is better rate controlled. Assessment & Plan This is a 81-year-old man admitted with small bowel obstruction who later developed a left lower lobe pneumonia, likely secondary to aspiration. This resulted in respiratory failure necessitated transfer to PCU for closer observation and respiratory support. Aspiration event was likely secondary to placement of his NG tube which is close significant pain for him and required initiation of PECAN GATHERER. The patient did have some improvement and was able to tolerate a diet with his NG tube clamped. The NG tube was eventually discontinued, however, the patient's condition has not improved significantly. #. Small bowel obstruction: POA, active and slowly improving. abdominal pain, nausea, vomiting, POA, likely SBO vs ileus, based on CT abd, multiple bowel surgical hx Surgery is following. Tube is out. Tolerating clear liquids. Slow advance of diet per surgery. #. New-onset A. fib with RVR: Resolved. -Echocardiogram pending, l -Now in sinus rhythm -Correctable electrolyte -will stop diltiazem drip. #. Aspiration pneumonia, not POA. Improving. -Continue Zosyn -Albuterol as needed #. Acute hypoxic respiratory failure, not POA. Imrpoving. # Acute greiving reaction, POA -Patient under a lot of pressure, son recently . -Trialing Zoloft #. Coronary artery disease , POA -s/p CABG, continue home asa, BB, statin, lasix #. Hyperlipidemia, POA -continue simvastatin #. Essential Hypertension, POA -continue atenolol #. asthma, POA. -neb tx as needed #. CKD2, POA, stable. - Cr close to baseline, avoid renal toxin, adjust meds renally CODE STATUS: Full code DVT prophylaxis: SCDs Disposition: Likely home at discharge, pending hospital course. Pain Evaluation: Adequate Pain Control VTE Mechanical Devices: Intermittant Pneumatic CD Resuscitation Status: CPR: Attempt Resuscitation Time spent 30 minutes Cem Borrego MD Aug 13, 2016 14:10
--- NOTE | 2016-08-13 16:24 | PROG NOTE ---
[address] [address] PROGRESS NOTE PATIENT: THAI LEDBETTER : 1935 MR#: [id number] ADMIT: 08/06/2016 JOB ID: [id number] DATE: 08/13/2016 The patient is seen in followup of his partial bowel obstruction. As I dictated yesterday, his Gastrografin study showed contrast into his colon. He reports in the last 24 hours he has had numerous bowel movements and has passed large amounts of flatus. He denies nausea or vomiting. He has tolerated sips of clear liquids. REVIEW OF SYSTEMS: Otherwise negative. PHYSICAL EXAMINATION: Temperature is 36.8, brachial blood pressure 138/78, pulse 84, respiratory rate 16, O2 sat on 5.5 L, 92%. Alert: No distress. He is sitting up. His abdomen remains distended but soft and nontender. LABORATORY RESULTS: White count 6.5, hematocrit 35.2, platelet count 125,000. Potassium was 2.7 earlier this morning, currently 3.2. IMPRESSION: Partial bowel obstruction. Clinically markedly improved. PLAN: He can have unrestricted volumes of clear liquids. If he does well will increase him to full liquids tomorrow.
--- NOTE | 2016-08-13 17:32 | NUR ---
Activity/Respiratory Pt up in room as a SBA to bsc. He got up and ambulated with staff today in the hallway, tolerated activity well. Gait is steady. Pt remains on 5L O2 via oxy mask. O2 sats fluctuate and he desats with activity (down to 84%). He has a CPOX on, at rest O2 sats range from 89-94%.
[2016-08-14] VITALS (10 sets, daily range): BP systolic 108–156; BP diastolic 55–77; PULSE 49–88; RESP 18–22; O2SAT 89–96
[2016-08-14] MEDS: Piperacillin-Tazo 3.375 Gm Inj 3.375 GM in Dextrose 5% Minibag Plus 50 ML IV SCH ×3 (00:41→16:15)
[2016-08-14] MEDS: Dextrose 5% Lactated Ringer's 1,000 ML IV SCH ×2 (02:18→15:21)
--- NOTE | 2016-08-14 06:15 | NUR ---
loose stool pt having 3 loose stools this shift, pt BT active, tolerating clear liquids. pt denies any pain or abd discomfort. SBA to BSC pt gets SOB and de-stats to high 80s but quickly recovers on 5L oxy mask. tele SR
[2016-08-14] MEDS: Polyethylene Glycol (PEG) 17 Gm Powder PO SCH (08:30)
--- NOTE | 2016-08-14 08:41 | PROG NOTE ---
[address] [address] PROGRESS NOTE PATIENT: THAI LEDBETTER : 1935 MR#: [id number] ADMIT: 08/06/2016 JOB ID: [id number] DATE: 08/14/2016 SUBJECTIVE: The patient is seen in follow up of this small bowel obstruction. He continues to improve. He says he feels the same as yesterday. He is hungry. He denies nausea or vomiting, abdominal pain. He continues to have diarrhea. REVIEW OF SYSTEMS: He has a celebration of life service for his son in a little over 2 weeks. He is concerned about his ability to get to it. PHYSICAL EXAMINATION: He is alert. Temperature 36.9, brachial blood pressure 128/73, pulse 72, respiratory rate 22, O2 sat on 4 L is 90%. Abdomen is soft, nontender. LABORATORY RESULTS: Electrolytes from today are still pending. IMPRESSION: Small bowel obstruction, clinically improved. He has diarrhea and with his treatment for his pneumonia clearly could have C. difficile colitis and I have ordered appropriate studies. He also may have become hypomagnesemic along with his hypokalemia, and I have ordered a magnesium for today. I have also advanced him to full liquids, although he is aware that this may make his diarrhea worse, and we may have to back off on that. Regarding the unfortunate tragic of his son, I told him that it is not possible for me to say if he is going to feel strong enough to go forward with the celebration of life in approximately 2 weeks. But, he certainly may. I think with respect to his intestines he will, but whether his overall strength and pulmonary status will allow him to be normally active, I think is not likely.
--- NOTE | 2016-08-14 12:52 | NUR ---
Social Work Note - Continued Discharge Planning: D/A: The Pt is a 81 y/o male that is now on day 8 of admission for SBO, post whipple, and ventral hernia repair. SW met with the Pt to explore HH option and sign YVETTE. The Pt reports that he would not be eligible for HH due him being his 's main caregiver/support, lives at [facility]. YVETTE signed. SW will continue to follow. P: The Pt is not medically stable for discharge at this time, likely to discharge home when medically ready pending clinical course. Pt declining HH. SW will continue to follow. YVAN Otero Maintenance Clerk
--- NOTE | 2016-08-14 14:33 | PCM.PNMED ---
Subjective Date of Service Aug 14, 2016 Subjective He is feeling somewhat better. He ate lunch. He is having ongoing diarrhea. A C. difficile toxin assay has been sent. No fevers or chills. Minimal abdominal pain. Some cramping. No nausea. His breathing is about the same. No productive cough. No chest pain. No fevers. His appetite is improving. No palpitations Overnight events reviewed. He is in sinus rhythm with trigeminy and other PVCs. Exam Vital Signs Vital Sign - Last Date Time Temp Pulse Resp B/P Pulse Ox O2 Delivery O2 Flow Rate FiO2 08/14/16 13:24 36.9 67 22 109/58 94 OxyMask 5.00 08/10/16 09:30 50 Intake and Output 08/13/16 08/13/16 08/14/16 Cumulative From/Thru 15:00 23:00 07:00 08/06/16 03:58 - 08/14/16 06:14 Intake Total 2231 ml 1473 ml 62048 ml Output Total 1275 ml 1100 ml 70202 ml Balance 956 ml 373 ml 8112 ml Intake Oral 1160 ml 400 ml 9468 ml IV Total 1071 ml 1073 ml 84512 ml Output Urine Total 525 ml 200 ml 8850 ml Stool Total 750 ml 3354 ml Urine/Stool Mix 900 ml 3950 ml Gastric Drainage Total 950 ml Emesis 1500 ml # Voids 11 # Bowel Movements 3 23 Exam Oriented 3, fluent speech Anicteric sclera Lungs are clear with normal right now. Heart is regular without murmur. There are some occasional extra beats Abdomen is distended but nontender with hyperactive bowel tones. Extremities with 1+ edema. Skin is pale but otherwise free of rash or lesions. He is in no acute distress and has normal affect. IVs and Medications Medications Reviewed: Medications were reviewed in detail Lab and Diagnostics Result Diagram: 08/13/16 0427 08/14/16 0745 X-Rays, CTs and MRIs PROCEDURE: CT ABDOMEN AND PELVIS WITHOUT CONTRAST ([id number]) INDICATIONS: sbo, post gastrectomy and whipple TECHNIQUE: After the administration of oral contrast, 5 mm thick sections acquired from the diaphragms to the symphysis. 5 mm coronal and sagittal reformats were performed. For radiation dose reduction, the following was used: automated exposure control, adjustment of mA and/or kV according to patient size. COMPARISON: [facility], CR, XR CHEST 1VW (PORTABLE), 08/06/2016, 5: 45. FINDINGS: Image quality: Excellent. ABDOMEN: Lung bases: Bibasilar dependent atelectasis. Heart size is normal. There is severe coronary calcification and CABG. Solid organs: Left hepatic lobe is absent, likely surgically resected. There is pneumobilia. A 10 mm hypodensity in the posterior segment of the right hepatic lobe is noted, probably a cyst. Spleen is normal in size. Gallbladder is surgically absent. Pancreas is normal in size. No adrenal nodules. Both kidneys are normal in size, without hydronephrosis. There is a 3 mm non- obstructive stone in the superior pole of the right kidney. Bilateral exophytic renal cysts are present. Peritoneum and bowel: Surgical sutures seen in the stomach. Small bowel loops are distended measuring up to 4.5 cm. There are differential air-fluid levels. No transitional point is identified. There is abundant colonic gas. No free fluid or air. Nodes and vessels: No retroperitoneal or mesenteric adenopathy by size criteria. Aorta and inferior vena cava are normal in size. Miscellaneous: No ventral hernias. PELVIS: Genitourinary: Bladder wall thickness is normal. Miscellaneous: No inguinal hernias or adenopathy. Bones: No suspicious bony lesions. Mild compression deformity in L2, L3 and L4. IMPRESSION: 1. Distended small bowel to measure up to 4.5 cm. There is no transitional point identified. Abundant colonic gas is present. Differential diagnosis includes early small or partial small bowel obstruction versus ileus. Recommend clinical correlation and followup. 2. A 3 mm non-obstructive renal cyst in the superior pole. 3. Bilateral renal cysts. No significant discrepancy with the overnight caregiver radiology preliminary report. Cardiac Echo Impressions Interpretation Summary Technically difficult study limiting valve visualization. 1) Mild concentric left ventricular hypertrophy with normal size. 2) Grossly normal systolic function, but assessment of LV function and wall motion limited by poor controlled ventricular rate due to atrial fibrillation. 3) Gross normal right ventricular size with mildly reduced function. 4) No significant valvular disease. 5) No prior Echo available for comparison. Recommend repeat Echo once patient's atrial fibrillation is better rate controlled. Assessment & Plan This is a 81-year-old man admitted with small bowel obstruction who later developed a left lower lobe pneumonia, likely secondary to aspiration. This resulted in respiratory failure necessitated transfer to PCU for closer observation and respiratory support. Aspiration event was likely secondary to placement of his NG tube which is close significant pain for him and required initiation of STATE PATROL OFFICER. The patient did have some improvement and was able to tolerate a diet with his NG tube clamped. The NG tube was eventually discontinued, however, the patient's condition has not improved significantly. #. Small bowel obstruction: POA, active and slowly improving. abdominal pain, nausea, vomiting, POA, likely SBO vs ileus, based on CT abd, multiple bowel surgical hx Surgery is following. Tube is out. Tolerating clear liquids. Slow advance of diet per surgery. #. New-onset A. fib with RVR: Resolved. -Echocardiogram was unremarkable. The patient remains in sinus with a lot of ectopy. #. Aspiration pneumonia, not POA. Improving. -Continue Zosyn -Albuterol as needed #. Acute hypoxic respiratory failure, not POA. Improving. # Acute greiving reaction, POA, and stable -Patient under a lot of pressure, son recently . -Continue Zoloft #. Coronary artery disease , POA -s/p CABG, continue home asa, BB, statin, lasix #. Hyperlipidemia, POA -continue simvastatin #. Essential Hypertension, POA -continue atenolol #. asthma, POA. -neb tx as needed #. CKD2, POA, stable. - Cr close to baseline, avoid renal toxin, adjust meds renally CODE STATUS: Full code DVT prophylaxis: SCDs Disposition: Possible discharge in 2-3 days. He may need home oxygen. Pain Evaluation: Adequate Pain Control VTE Mechanical Devices: Intermittant Pneumatic CD Resuscitation Status: CPR: Attempt Resuscitation Cem Borrego MD Aug 14, 2016 14:33
--- NOTE | 2016-08-14 16:16 | NUR ---
Transfer to [facility] Patient transferred to [facility] in a stable condition. All personal belongings with patient, IV fluids infusing, report called to Porter Ray.
--- NOTE | 2016-08-14 18:32 | NUR ---
Arrival to Floor Patient arrived to floor alert and oriented, denies pain or nausea. Patient IVs patient, patient placed on room oxygen and continuous pulse oximiter. Patient placed on contact precautions due to pending stool samples. Care is ongoing.
[2016-08-14] MEDS: Albuterol 2.5 mg/3 mL Inhalation Solution NEB PRN (23:27)
[2016-08-15] VITALS (11 sets, daily range): BP systolic 128–158; BP diastolic 59–87; PULSE 57–88; RESP 16–22; O2SAT 89–94
[2016-08-15] MEDS: Piperacillin-Tazo 3.375 Gm Inj 3.375 GM in Dextrose 5% Minibag Plus 50 ML IV SCH ×3 (01:25→17:16)
--- NOTE | 2016-08-15 02:50 | NUR ---
SOB/IV c/o SOB with both activity and rest, productive cough producing blood tinged thick and frothy sputum. Charge nurse notified, agreed to watch closely. Rt hand IV removed as it infiltrated, new IV started in Left forearm. Both left peripheral lines asymptomatic at this time.
[2016-08-15] MEDS: Dextrose 5% Lactated Ringer's 1,000 ML IV SCH ×2 (04:03→19:03)
[2016-08-15] MEDS: Polyethylene Glycol (PEG) 17 Gm Powder PO SCH (07:59)
[2016-08-15] MEDS ORDERED: KCl 40 mEq/100 mL (CENTRAL) 40 MEQ in IV Premix 1 EACH IV ONE (11:25)
[2016-08-15] MEDS ORDERED: KCl 40 mEq/D5W 500 mL 40 MEQ in IV Premix 1 EACH IV ONE (11:45)
--- NOTE | 2016-08-15 14:15 | PROG NOTE ---
[address] [address] PROGRESS NOTE PATIENT: THAI LEDBETTER : 1935 MR#: [id number] ADMIT: 08/06/2016 JOB ID: [id number] DATE: 08/15/2016 PROGRESS NOTE: The patient is seen in followup of his small bowel obstruction which clinically has resolved. He continues to have multiple liquid bowel movements a day. He says he has one every three or four hours, including at night. His C. difficile toxin from yesterday was negative. He is tolerating full liquids. REVIEW OF SYSTEMS: Denies abdominal pain. He was able to walk yesterday but then was very fatigued. He also has postponed celebration of life for his recently son. PHYSICAL EXAMINATION: Temperature 36.5, brachial blood pressure 139/70, pulse 57, respiratory rate 16, O2 saturation 4 L 92%. He is alert, in no distress. He is smiling. Abdomen is soft, nontender. LABORATORY DATA: Laboratory results from today: His potassium is still 3.0. Magnesium yesterday was 1.7. I gave him 400 mg of oral magnesium. Will order another one for tomorrow. IMPRESSION: Regards to his small bowel obstruction, it has resolved. I will add diet as tolerated. I have continued to encourage him to ambulate.
--- NOTE | 2016-08-15 15:29 | NUR ---
NUTRITION FOLLOW UP: ASSESS: 81 yo M admitted for SBO--now resolved. Pt currently tolerating full liquid diet, with diet to be advanced as tolerated per MD notes. PMHX: CAD, pancreatic ca, HTN, HLD LABS: Reviewed. Alb 2.6, [id number] MEDS: Reviewed. GI: BM X 3 (08/15) SKIN: Eduardo 19, no major issues CURRENT WT: 101.4kg, BMI 27.2 kg/m2, Admit wt: 99.6 kg DIET: Full Liquid. PO 75% ESTIMATED NEEDS: Calories: 8491-3699 kcal/day (25-30 kcal/kg BW) Protein: 100-120 g/day (1.0-1.2g/kg BW) NUTRITION DIAGNOSIS: 1.) Inadequate oral intake related to decreased ability to consume sufficient energy as evidenced by current CL diet order---IMPROVING. NUTRITION INTERVENTION: 1.) Supplements added to all meal trays. MONITOR/EVALUATE: Diet advance, GI, wt, labs, Follow per moderate nutrition risk guidelines.
--- NOTE | 2016-08-15 17:04 | PCM.PNMED ---
Subjective Date of Service Aug 15, 2016 Subjective Patient was seen and examined at bedside today. Patient denies any chest pain, shortness of breath, nausea, vomiting, diarrhea. Patient states that he is eating however he feels that he has a very decreased appetite. Overnight events: Patient complained of shortness of breath overnight and cough which is now resolved. Patient had an infiltrated IV which needed to be replaced. Exam Vital Signs Vital Sign - Last Date Time Temp Pulse Resp B/P Pulse Ox O2 Delivery O2 Flow Rate FiO2 08/15/16 14:52 36.8 84 20 158/70 91 Nasal Cannula 4.00 08/10/16 09:30 50 Intake and Output 08/14/16 08/14/16 08/15/16 Cumulative From/Thru 15:00 23:00 07:00 08/06/16 03:58 - 08/15/16 06:11 Intake Total 840 ml 2508 ml 07918 ml Output Total 640 ml 950 ml 11638 ml Balance 200 ml 1558 ml 9870 ml Intake Oral 840 ml 400 ml 72688 ml IV Total 2108 ml 09393 ml Output Urine Total 640 ml 350 ml 9840 ml Stool Total 3354 ml Urine/Stool Mix 600 ml 4550 ml Gastric Drainage Total 950 ml Emesis 1500 ml # Voids 11 # Bowel Movements 3 3 29 Exam Physical Exam: GEN: Patient was awake, alert, responding appropriately to questions HEENT: Pupils equal round and reactive to light, extraocular eye muscles intact , Neck soft supple, trachea midline, nomocephalic/atraumatic CV: +S1/S2, regular rate and rhythm, systolic murmur auscultated Respiratory: CTAB, no wheezes, rales, rhonchi GI: +bowel sounds x4, soft, compressible, nontender to palpation EXT: no clubbing, cyanosis, edema Neuro: Cranial nerves II-XII grossly intact Psych: mood and affect were appropriate IVs and Medications Medications Reviewed: Medications were reviewed in detail Lab and Diagnostics Result Diagram: 08/13/16 0427 08/15/16 0815 X-Rays, CTs and MRIs PROCEDURE: CT ABDOMEN AND PELVIS WITHOUT CONTRAST ([id number]) INDICATIONS: sbo, post gastrectomy and whipple TECHNIQUE: After the administration of oral contrast, 5 mm thick sections acquired from the diaphragms to the symphysis. 5 mm coronal and sagittal reformats were performed. For radiation dose reduction, the following was used: automated exposure control, adjustment of mA and/or kV according to patient size. COMPARISON: [facility], CR, XR CHEST 1VW (PORTABLE), 08/06/2016, 5: 45. FINDINGS: Image quality: Excellent. ABDOMEN: Lung bases: Bibasilar dependent atelectasis. Heart size is normal. There is severe coronary calcification and CABG. Solid organs: Left hepatic lobe is absent, likely surgically resected. There is pneumobilia. A 10 mm hypodensity in the posterior segment of the right hepatic lobe is noted, probably a cyst. Spleen is normal in size. Gallbladder is surgically absent. Pancreas is normal in size. No adrenal nodules. Both kidneys are normal in size, without hydronephrosis. There is a 3 mm non- obstructive stone in the superior pole of the right kidney. Bilateral exophytic renal cysts are present. Peritoneum and bowel: Surgical sutures seen in the stomach. Small bowel loops are distended measuring up to 4.5 cm. There are differential air-fluid levels. No transitional point is identified. There is abundant colonic gas. No free fluid or air. Nodes and vessels: No retroperitoneal or mesenteric adenopathy by size criteria. Aorta and inferior vena cava are normal in size. Miscellaneous: No ventral hernias. PELVIS: Genitourinary: Bladder wall thickness is normal. Miscellaneous: No inguinal hernias or adenopathy. Bones: No suspicious bony lesions. Mild compression deformity in L2, L3 and L4. IMPRESSION: 1. Distended small bowel to measure up to 4.5 cm. There is no transitional point identified. Abundant colonic gas is present. Differential diagnosis includes early small or partial small bowel obstruction versus ileus. Recommend clinical correlation and followup. 2. A 3 mm non-obstructive renal cyst in the superior pole. 3. Bilateral renal cysts. No significant discrepancy with the arcade game technician radiology preliminary report. Cardiac Echo Impressions Interpretation Summary Technically difficult study limiting valve visualization. 1) Mild concentric left ventricular hypertrophy with normal size. 2) Grossly normal systolic function, but assessment of LV function and wall motion limited by poor controlled ventricular rate due to atrial fibrillation. 3) Gross normal right ventricular size with mildly reduced function. 4) No significant valvular disease. 5) No prior Echo available for comparison. Recommend repeat Echo once patient's atrial fibrillation is better rate controlled. Assessment & Plan This is a 81-year-old man admitted with small bowel obstruction who later developed a left lower lobe pneumonia, likely secondary to aspiration. This resulted in respiratory failure necessitated transfer to PCU for closer observation and respiratory support. 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 The patient did have some improvement and was able to tolerate a diet with his NG tube clamped. The NG tube was eventually discontinued, however, the patient's condition has not improved significantly. Small bowel obstruction: POA, active and slowly improving. abdominal pain, nausea, vomiting, POA, likely SBO vs ileus, based on CT abd, multiple bowel surgical hx -Surgery is following (Dr. Borrego) -Patient is currently tolerating clear liquids surgery has advanced his diet to general today New-onset A. fib with RVR: Resolved. -Echocardiogram was unremarkable. The patient remains in sinus with a lot of ectopy. Hypokalemia -Creatinine is 3.0 -Replete potassium with 40 mEq -Continue to monitor Aspiration pneumonia, not POA. Improving. -Continue Zosyn -Albuterol as needed Acute hypoxic respiratory failure, not POA. Improving. Acute greiving reaction, POA, and stable -Patient under a lot of pressure, son recently . -Continue Zoloft Coronary artery disease , POA -s/p CABG, continue home asa, BB, statin, lasix Hyperlipidemia, POA -Continue simvastatin Essential Hypertension, POA -Continue atenolol Asthma, POA. -Neb tx as needed CKD2, POA, stable. - Creatinine is at baseline and normal at 1.01 - Avoid renal toxin, adjust meds renally CODE STATUS: Full code DVT prophylaxis: SCDs Disposition: Patient is currently progressing. Patient's diet has been advanced by surgery. Patient will be assessed by physical therapy as he has been having some lower extremity weakness. Patient may possibly need home oxygen will have respiratory evaluate the patient. VTE Mechanical Devices: Intermittant Pneumatic CD Resuscitation Status: CPR: Attempt Resuscitation Shonna Armstrong DO Aug 15, 2016 17:04
--- NOTE | 2016-08-15 17:41 | NUR ---
RESPIRATORY/GI Patient continues to be on O2 at 4 LPM via NC. PO2 in the high 80- low 90's. Unable to wean off O2. Patient continues to have pink tinged sputum post NGT removal. Dr. Armstrong was made aware of this during rounds this morning. No new orders at this time. Patient complained of SOB with exertion. He did not want any cough medicine for his cough. Patient's diet was advanced to a general. He ate his lunch without any issues noted. He denies nausea. No emesis noted. Denies abdominal pain after eating. He has been able to ambulate in the hallway with SBA and the FWW and tolerated activity fairly. K level was 3.0. K rider administered and is still running at this time. Patient is on remote tele. Per local telephone operator patient is on sinus rhythm; HR-90's with trigeminal PVC's, which is not a new for the patient. Care continues.
[2016-08-16] VITALS (8 sets, daily range): BP systolic 138–167; BP diastolic 77–89; PULSE 75–89; RESP 17–24; O2SAT 91–93
[2016-08-16] MEDS ORDERED: 0.9% Sodium Chloride 250 ML ONE ×2 (00:34→17:17)
[2016-08-16] MEDS: Piperacillin-Tazo 3.375 Gm Inj 3.375 GM in Dextrose 5% Minibag Plus 50 ML IV SCH ×3 (00:39→18:27)
--- NOTE | 2016-08-16 03:27 | NUR ---
Activity Patient A&Ox3 and pleasant this evening. Denies of any pain, but does complain of anxiety due many external factors. Continues to complain of SOB. 4L O2 via oxymask is being worn this evening. GLUE SPREADER applied. Tele monitor applied and reads 80's with PVCs. Patient has been up several times to the bedside commode via SBA for loose stools. IV has been infusing D5LR @ 80, with intermittent abx. Will continue to monitor, and continue Q1 hour checks.
[2016-08-16] MEDS ORDERED: KCl 40 mEq/100 mL (CENTRAL) 40 MEQ in IV Premix 1 EACH IV ONE (07:55)
[2016-08-16] MEDS: Polyethylene Glycol (PEG) 17 Gm Powder PO SCH (08:30)
[2016-08-16] MEDS ORDERED: KCl 40 mEq/D5W 500 mL 40 MEQ in IV Premix 1 EACH IV ONE (08:35)
[2016-08-16] MEDS: Dextrose 5% Lactated Ringer's 1,000 ML IV SCH (09:00)
--- NOTE | 2016-08-16 10:05 | PCM.PNSURG ---
Subjective Date of Service: Aug 16, 2016 Date of Service: Aug 16, 2016 Visit Information: Reason for Visit Sbo, Post Whipple, Ventral Hernia Repair Surgery/Surgery Date Post-Op Day # Date of Admission: Aug 06, 2016 at 05:50 Hospital Day # Subjective: Seen in surgical follow-up. Patient is still having loose BMs/diarrhea but less. C diff negative. No nausea, tolerating regular diet. No new complaints, he is worried about being his breathing and O2 requirements with possibly being discharged soon. No abdominal pain and less bloating than earlier. Might need Home health. has MS and is at [facility]. Postop General: No Complaints Gastrointestinal: Tolerating Oral Feedings, No N/V, Diarrhea Pain Management: Good Pain Control Postop Activity: Ambulating in Perdomo (x 1 yesterday, plans to ambulate later) Objective Objective pleasant but clearly sad/depressed but conversive Vital Sign- Last 8 Hours Date Time Temp Pulse Resp B/P Pulse Ox O2 Delivery O2 Flow Rate FiO2 08/16/16 08:07 Supplement Oxygen 08/16/16 05:05 36.4 75 21 138/82 92 Nasal Cannula 4.00 08/16/16 03:22 78 Intake and Output- Last 8 Hour 08/16/16 Cumulative From/Thru 07:00 08/06/16 03:58 - 08/16/16 06:27 Intake Total 1474 ml 15857 ml Output Total 1300 ml 87245 ml Balance 174 ml 37854 ml Intake Oral 800 ml 09008 ml IV Total 674 ml 58986 ml Output Urine Total 1100 ml 69823 ml Stool Total 200 ml 3554 ml Urine/Stool Mix 4550 ml Gastric Drainage Total 950 ml Emesis 1500 ml # Voids 11 # Bowel Movements 3 33 General: Alert, Oriented X3, Cooperative, Anicteric Lungs: Diminished, Crackles (few fine crackles, scattered) Abdomen: Soft, Non-tender, Non-distended, No masses, Other (hyperactive bowel tones, slightly tympanitic / well-healed surgical scars) Neuro: Grossly Neurologically Intact, Normal Speech Catheters: None Result Diagram: 08/13/16 6697 08/16/16 0530 Assessment & Plan Impression HD#11 with SBO and Pneumonia 81 yo male with an extensive abdominal surgical history who is doing better from his most recent SBO. He is passing diarrhea and flatus, his pain is resolved and he is tolerating a regular diet. From a surgical perspective, he can be discharged when medically stable in regards to his pneumonia/pulmonary status. Problems: Plan Continue with general diet as tolerated. Discussed with pt to take advancing foods slowly. Would consider Home health Manage of pneumonia and other medical issues per hospitalist team. Discharge per hospitalist, ok with surgery when medically ready. Resuscitation Status: CPR: Attempt Resuscitation Milagro Rod PAC Aug 16, 2016 10:04
--- NOTE | 2016-08-16 10:21 | NUR ---
Ambulated patient around unit with PT on room air. Patient desatted to 82% while ambulating. He was placed back onto 4 L via nasal cannula and his O2sat increased to 90%. At rest, he increased to 92% on 4L.
[2016-08-16] MEDS: Albuterol 2.5 mg/3 mL Inhalation Solution NEB PRN (10:24)
--- NOTE | 2016-08-16 11:41 | NUR ---
Evaluation completed. Please go to "Notes" then click on "Assessments and Notes" (bottom left corner of screen). Then select appropriate discipline tab on top of screen.
--- NOTE | 2016-08-16 15:00 | NUR ---
Respiratory Home O2 assessment At rest: RA sat 86% 4 LNC 92%
--- NOTE | 2016-08-16 16:08 | PCM.PNMED ---
Subjective Date of Service Aug 16, 2016 Subjective Patient was seen and examined at bedside today. Patient denies any chest pain, shortness of breath, nausea, vomiting, diarrhea. Patient still complains of being weak and feels that he is able to tolerate a full diet. Patient states that he is improving daily but does have concerns of being discharged home. Overnight events: None Exam Vital Signs Vital Sign - Last Date Time Temp Pulse Resp B/P Pulse Ox O2 Delivery O2 Flow Rate FiO2 08/16/16 14:37 36.7 77 24 162/77 93 Nasal Cannula 3.50 08/10/16 09:30 50 Intake and Output 08/15/16 08/15/16 08/16/16 Cumulative From/Thru 15:00 23:00 07:00 08/06/16 03:58 - 08/16/16 06:27 Intake Total 2301 ml 1474 ml 67606 ml Output Total 1090 ml 1300 ml 34146 ml Balance 1211 ml 174 ml 95919 ml Intake Oral 1320 ml 800 ml 95782 ml IV Total 981 ml 674 ml 73538 ml Output Urine Total 1090 ml 1100 ml 51294 ml Stool Total 200 ml 3554 ml Urine/Stool Mix 4550 ml Gastric Drainage Total 950 ml Emesis 1500 ml # Voids 11 # Bowel Movements 1 3 33 Exam Physical Exam: GEN: Patient was awake, alert, responding appropriately to questions HEENT: Pupils equal round and reactive to light, extraocular eye muscles intact , Neck soft supple, trachea midline, nomocephalic/atraumatic CV: +S1/S2, regular rate and rhythm, systolic murmur auscultated Respiratory: CTAB, no wheezes, rales, rhonchi GI: +bowel sounds x4, soft, compressible, nontender to palpation EXT: no clubbing, cyanosis, edema Neuro: Cranial nerves II-XII grossly intact Psych: mood and affect were appropriate IVs and Medications Medications Reviewed: Medications were reviewed in detail Lab and Diagnostics Result Diagram: 08/13/16 0427 08/16/16 0530 X-Rays, CTs and MRIs PROCEDURE: CT ABDOMEN AND PELVIS WITHOUT CONTRAST ([id number]) INDICATIONS: sbo, post gastrectomy and whipple TECHNIQUE: After the administration of oral contrast, 5 mm thick sections acquired from the diaphragms to the symphysis. 5 mm coronal and sagittal reformats were performed. For radiation dose reduction, the following was used: automated exposure control, adjustment of mA and/or kV according to patient size. COMPARISON: [facility], CR, XR CHEST 1VW (PORTABLE), 08/06/2016, 5: 45. FINDINGS: Image quality: Excellent. ABDOMEN: Lung bases: Bibasilar dependent atelectasis. Heart size is normal. There is severe coronary calcification and CABG. Solid organs: Left hepatic lobe is absent, likely surgically resected. There is pneumobilia. A 10 mm hypodensity in the posterior segment of the right hepatic lobe is noted, probably a cyst. Spleen is normal in size. Gallbladder is surgically absent. Pancreas is normal in size. No adrenal nodules. Both kidneys are normal in size, without hydronephrosis. There is a 3 mm non- obstructive stone in the superior pole of the right kidney. Bilateral exophytic renal cysts are present. Peritoneum and bowel: Surgical sutures seen in the stomach. Small bowel loops are distended measuring up to 4.5 cm. There are differential air-fluid levels. No transitional point is identified. There is abundant colonic gas. No free fluid or air. Nodes and vessels: No retroperitoneal or mesenteric adenopathy by size criteria. Aorta and inferior vena cava are normal in size. Miscellaneous: No ventral hernias. PELVIS: Genitourinary: Bladder wall thickness is normal. Miscellaneous: No inguinal hernias or adenopathy. Bones: No suspicious bony lesions. Mild compression deformity in L2, L3 and L4. IMPRESSION: 1. Distended small bowel to measure up to 4.5 cm. There is no transitional point identified. Abundant colonic gas is present. Differential diagnosis includes early small or partial small bowel obstruction versus ileus. Recommend clinical correlation and followup. 2. A 3 mm non-obstructive renal cyst in the superior pole. 3. Bilateral renal cysts. No significant discrepancy with the store group manager radiology preliminary report. Cardiac Echo Impressions Interpretation Summary Technically difficult study limiting valve visualization. 1) Mild concentric left ventricular hypertrophy with normal size. 2) Grossly normal systolic function, but assessment of LV function and wall motion limited by poor controlled ventricular rate due to atrial fibrillation. 3) Gross normal right ventricular size with mildly reduced function. 4) No significant valvular disease. 5) No prior Echo available for comparison. Recommend repeat Echo once patient's atrial fibrillation is better rate controlled. Assessment & Plan This is a 81-year-old man admitted with small bowel obstruction who later developed a left lower lobe pneumonia, likely secondary to aspiration. This resulted in respiratory failure necessitated transfer to PCU for closer observation and respiratory support. Aspiration event was likely secondary to placement of his NG tube which is close significant pain for him and required initiation of JAVASCRIPT DEVELOPER. The patient did have some improvement and was able to tolerate a diet with his NG tube clamped. The NG tube was eventually discontinued, however, the patient's condition has not improved significantly. Small bowel obstruction: POA, active and slowly improving. abdominal pain, nausea, vomiting, POA, likely SBO vs ileus, based on CT abd, multiple bowel surgical hx -Surgery is following (Dr. Borrego) -Patient is currently tolerating a soft diet New-onset A. fib with RVR: Resolved. -Echocardiogram was unremarkable. The patient remains in sinus with a lot of ectopy. Hypokalemia -Potassium is 3.3 -Replete potassium with 40 mEq -Continue to monitor Aspiration pneumonia, not POA. Improving. -Continue Zosyn -Albuterol as needed Acute hypoxic respiratory failure, not POA. -Patient remains on 4 L of oxygen daily -Respiratory therapy to evaluate patient for possible home oxygen Acute greiving reaction, POA, and stable -Patient under a lot of pressure, son recently . -Continue Zoloft Coronary artery disease , POA -s/p CABG, continue home asa, BB, statin, lasix Hyperlipidemia, POA -Continue simvastatin Essential Hypertension, POA -Continue atenolol Asthma, POA. -Neb tx as needed CKD2, POA, stable. - Creatinine is at baseline and normal at 0.97 - Avoid renal toxin, adjust meds renally CODE STATUS: Full code DVT prophylaxis: SCDs Disposition: Patient is currently progressing. Patient's diet has been advanced by surgery. Patient will be assessed by physical therapy as he has been having some lower extremity weakness. Respiratory therapy to evaluate for home O2. Patient will most likely be discharged in the next 1-2 days. VTE Mechanical Devices: Intermittant Pneumatic CD Resuscitation Status: CPR: Attempt Resuscitation Shonna Armstrong DO Aug 16, 2016 16:08
--- NOTE | 2016-08-16 18:40 | NUR ---
ACTIVITY Patient denies pain. Tolerating liquids PO and his diet well. Denies nausea. No emesis noted. Patient continues to be on O2 at 4 LPM via NC. PO2 in the low 90's. Denies SOB. Ambulated X [address] Tolerated activity well. Patient showered this morning. He continues to be on tele. Per television producer patient is on sinus rhythm; HR-80's with some PVC's.
[2016-08-17] VITALS (11 sets, daily range): BP systolic 127–142; BP diastolic 58–77; PULSE 62–95; RESP 18–24; O2SAT 88–94
--- NOTE | 2016-08-17 03:50 | NUR ---
activity pt has gotten up to the BSC, with SBA several times this shift for loose stools. he denies abdominal pain or N/V. he has been on 4L of 02 via oxymask with sp02 88%-92%. will continue Q1h checks.
--- NOTE | 2016-08-17 05:51 | NUR ---
urinary frequency and irritation pt complains of urinary frequency and burning with urinating. pt requested for UA. urinary sample sent to lab.
[2016-08-17 06:06] LABS: APPEARANCE,URINE CLEAR (CLEAR,HAZY); COLOR,URINE YELLOW (YELLOW); OCCULT BLOOD,URINE NEGATIVE (NEGATIVE); UROBILINOGEN,URINE NORMAL (NORMAL)
[2016-08-17 06:17] LABS: Mean Corpuscular Hemoglobin 30.7 pg (27.0-35.0); Mean Corpuscular Volume 90.4 fL (81-100)
[2016-08-17] MEDS: Polyethylene Glycol (PEG) 17 Gm Powder PO SCH (08:04)
[2016-08-17] MEDS: Albuterol 2.5 mg/3 mL Inhalation Solution NEB PRN ×3 (10:45→20:10)
--- NOTE | 2016-08-17 13:52 | NUR ---
YVETTE YVETTE signed
--- NOTE | 2016-08-17 13:53 | NUR ---
Social Work: Continued discharge planning Data & Assessment: Patient was discussed in daily rounds and it is likely that patient will be in the hospital 1-2 more days. Patient will be elvaluated by respiratory therapy for possible home O2. SW met with patient to discuss discharge planning. Patient stated that he originally declined HH, but he knows that he needs it. SW provided patient with HH choices and patient chose [facility]. SW will notify [facility] and give the access to patient's chart. SW will continue to follow and assist patient throughout stay. Plan: Patient will likely discharge home with [facility] and home O2 via POV. SW will continue to follow and assist patient throughout stay. Reena Carl, AVA, DEBBI
--- NOTE | 2016-08-17 15:45 | PCM.PNMED ---
Subjective Date of Service Aug 17, 2016 Subjective Patient was seen and examined at bedside today. Patient denies any chest pain, shortness of breath, nausea, vomiting, diarrhea. Patient seems to be progressing well however he is still in need of a significant amount of oxygen. Overnight events: None Exam Vital Signs Vital Sign - Last Date Time Temp Pulse Resp B/P Pulse Ox O2 Delivery O2 Flow Rate FiO2 08/17/16 13:28 37.1 74 129/58 89 Nasal Cannula 3.50 08/17/16 10:45 24 Intake and Output 08/16/16 08/16/16 08/17/16 Cumulative From/Thru 15:00 23:00 07:00 08/06/16 03:58 - 08/17/16 06:24 Intake Total 1747 ml 10224 ml Output Total 1650 ml 45133 ml Balance 97 ml 79714 ml Intake Oral 900 ml 65162 ml IV Total 847 ml 89486 ml Output Urine Total 1300 ml 30946 ml Stool Total 3554 ml Urine/Stool Mix 350 ml 4900 ml Gastric Drainage Total 950 ml Emesis 1500 ml # Voids 1 12 # Bowel Movements 33 Exam Physical Exam: GEN: Patient was awake, alert, responding appropriately to questions HEENT: Pupils equal round and reactive to light, extraocular eye muscles intact , Neck soft supple, trachea midline, nomocephalic/atraumatic CV: +S1/S2, regular rate and rhythm, systolic murmur auscultated Respiratory: CTAB, no wheezes, rales, rhonchi GI: +bowel sounds x4, soft, compressible, nontender to palpation EXT: no clubbing, cyanosis, edema Neuro: Cranial nerves II-XII grossly intact Psych: mood and affect were appropriate IVs and Medications Medications Reviewed: Medications were reviewed in detail Lab and Diagnostics Result Diagram: 08/17/1660408/17/16604 X-Rays, CTs and MRIs PROCEDURE: CT ABDOMEN AND PELVIS WITHOUT CONTRAST ([id number]) INDICATIONS: sbo, post gastrectomy and whipple TECHNIQUE: After the administration of oral contrast, 5 mm thick sections acquired from the diaphragms to the symphysis. 5 mm coronal and sagittal reformats were performed. For radiation dose reduction, the following was used: automated exposure control, adjustment of mA and/or kV according to patient size. COMPARISON: [facility], CR, XR CHEST 1VW (PORTABLE), 08/06/2016, 5: 45. FINDINGS: Image quality: Excellent. ABDOMEN: Lung bases: Bibasilar dependent atelectasis. Heart size is normal. There is severe coronary calcification and CABG. Solid organs: Left hepatic lobe is absent, likely surgically resected. There is pneumobilia. A 10 mm hypodensity in the posterior segment of the right hepatic lobe is noted, probably a cyst. Spleen is normal in size. Gallbladder is surgically absent. Pancreas is normal in size. No adrenal nodules. Both kidneys are normal in size, without hydronephrosis. There is a 3 mm non- obstructive stone in the superior pole of the right kidney. Bilateral exophytic renal cysts are present. Peritoneum and bowel: Surgical sutures seen in the stomach. Small bowel loops are distended measuring up to 4.5 cm. There are differential air-fluid levels. No transitional point is identified. There is abundant colonic gas. No free fluid or air. Nodes and vessels: No retroperitoneal or mesenteric adenopathy by size criteria. Aorta and inferior vena cava are normal in size. Miscellaneous: No ventral hernias. PELVIS: Genitourinary: Bladder wall thickness is normal. Miscellaneous: No inguinal hernias or adenopathy. Bones: No suspicious bony lesions. Mild compression deformity in L2, L3 and L4. IMPRESSION: 1. Distended small bowel to measure up to 4.5 cm. There is no transitional point identified. Abundant colonic gas is present. Differential diagnosis includes early small or partial small bowel obstruction versus ileus. Recommend clinical correlation and followup. 2. A 3 mm non-obstructive renal cyst in the superior pole. 3. Bilateral renal cysts. No significant discrepancy with the cryptography teacher radiology preliminary report. Cardiac Echo Impressions Interpretation Summary Technically difficult study limiting valve visualization. 1) Mild concentric left ventricular hypertrophy with normal size. 2) Grossly normal systolic function, but assessment of LV function and wall motion limited by poor controlled ventricular rate due to atrial fibrillation. 3) Gross normal right ventricular size with mildly reduced function. 4) No significant valvular disease. 5) No prior Echo available for comparison. Recommend repeat Echo once patient's atrial fibrillation is better rate controlled. Assessment & Plan This is a 81-year-old man admitted with small bowel obstruction who later developed a left lower lobe pneumonia, likely secondary to aspiration. This resulted in respiratory failure necessitated transfer to PCU for closer observation and respiratory support. Aspiration event was likely secondary to placement of his NG tube which is close significant pain for him and required initiation of HAY CHOPPER. The patient did have some improvement and was able to tolerate a diet with his NG tube clamped. The NG tube was eventually discontinued, however, the patient's condition has not improved significantly. Small bowel obstruction: POA, active and slowly improving. abdominal pain, nausea, vomiting, POA, likely SBO vs ileus, based on CT abd, multiple bowel surgical hx -Gen. surgery signing off -Patient is currently tolerating a general diet New-onset A. fib with RVR: Resolved. -Echocardiogram was unremarkable. The patient remains in sinus with frequent PVC's. Hypokalemia -Potassium is 3.3 -Replete potassium with 40 mEq -Continue to monitor Aspiration pneumonia, not POA. Improving. -Zosyn has been discontinued as the patient has had a full ten-day course of antibiotic therapy -Albuterol as needed Acute hypoxic respiratory failure, not POA. -Patient remains on 4 L of oxygen daily -Respiratory therapy to evaluate patient for possible home oxygen Acute grieving reaction, POA, and stable -Patient under a lot of pressure, son recently . -Continue Zoloft Coronary artery disease , POA -s/p CABG, continue home asa, BB, statin, lasix Hyperlipidemia, POA -Continue simvastatin Essential Hypertension, POA -Continue atenolol Asthma, POA. -Neb tx as needed CKD2, POA, stable. - Creatinine is at baseline and normal at 0.97 - Avoid renal toxin, adjust meds renally CODE STATUS: Full code DVT prophylaxis: SCDs Disposition: Patient is currently progressing. Patient's diet has been advanced by surgery and the patient has been tolerating this. Case was discussed with Dr. Kay (general surgery) and agree that the patient from a general surgery standpoint is stable to go home. The patient has been assessed by physical therapy and they do not recommend home PT however they do agree with the patient needing home health nursing. Patient will most likely be discharged tomorrow with home health and home O2. VTE Mechanical Devices: Intermittant Pneumatic CD Resuscitation Status: CPR: Attempt Resuscitation Shonna Armstrong DO Aug 17, 2016 15:45
--- NOTE | 2016-08-17 18:24 | NUR ---
Activity Patient on 3.5-4L via nasal cannula. Satting at 88-92%. Frequently short of breath. Albuterol breathing treatments do seem to help alleviate this. He was saline locked this AM. Has been using the bedside commode to urinate and defecate. Still having frequency and urgency of urine and voids between 100-200 mL each time. Small liquid stool passed this AM. Social work continues to work on discharge planning with [facility]. Possibly D/Cing within next 1-2 days.
[2016-08-18 00:28] VITALS: BP 128/58; PULSE 80; RESP 18; O2SAT 92
[2016-08-18] MEDS: Albuterol 2.5 mg/3 mL Inhalation Solution NEB PRN ×2 (05:27→11:49)
[2016-08-18 05:28] VITALS: PULSE 61; O2SAT 87
[2016-08-18 06:07] VITALS: PULSE 79
[2016-08-18 06:18] VITALS: BP 126/64; PULSE 86; RESP 18; O2SAT 86
--- NOTE | 2016-08-18 07:27 | NUR ---
activity pt has remained on 4L of 02 via NC. he frequently dropped below 86% 02 sat while sleeping. he also because severely SOB with exertion and has a long recovery time. Respiratory therapy was called who administered neb treatments. the neb treatments do help pts breathe easier and their 02 sats rise. he had no complaints of nausea. and says he has not had diarrhea in 2 days. care continue.
[2016-08-18 07:30] VITALS: BP 136/77; PULSE 82; O2SAT 91
[2016-08-18] MEDS: Polyethylene Glycol (PEG) 17 Gm Powder PO SCH (08:30)
[2016-08-18 11:51] VITALS: PULSE 78; RESP 20; O2SAT 92
--- NOTE | 2016-08-18 12:08 | NUR ---
Pt remains on 4 lpm O2 via nasal cannula. Unable to wean O2 for the past several days. Pt on continuous pox and reading 93% while at rest. Trial done off O2 and SaO2 dropped down to 86% and became dyspnic. Albuterol treatment given and pt placed back on 4 lpm NC. Pt remanined dyspnic x 10 minutes post trial off O2.
--- NOTE | 2016-08-18 12:19 | PCM.PNSURG ---
Subjective Visit Information: Reason for Visit Sbo, Post Whipple, Ventral Hernia Repair Surgery/Surgery Date Post-Op Day # Date of Admission: Aug 06, 2016 at 05:50 Hospital Day # Subjective: pt remains on oxygen, tolerating diet and having bowel function Objective Objective Awake in bed in room Abd: soft nontender Vital Sign- Last 8 Hours Date Time Temp Pulse Resp B/P Pulse Ox O2 Delivery O2 Flow Rate FiO2 08/18/16 11:51 78 20 92 Nasal Cannula 4.00 08/18/16 09:30 Supplement Oxygen 08/18/16 07:30 37.1 82 136/77 91 Nasal Cannula 4.00 08/18/16 06:18 37.0 86 18 126/64 86 Nasal Cannula 4.00 08/18/16 06:07 79 08/18/16 05:28 61 87 Nasal Cannula 4.00 Intake and Output- Last 8 Hour 08/18/16 Cumulative From/Thru 07:00 08/06/16 03:58 - 08/18/16 06:49 Intake Total 800 ml 64447 ml Output Total 1350 ml 32433 ml Balance -550 ml 83772 ml Intake Oral 800 ml 21027 ml IV Total 92078 ml Output Urine Total 1350 ml 86959 ml Stool Total 3554 ml Urine/Stool Mix 4900 ml Gastric Drainage Total 950 ml Emesis 1500 ml # Voids 21 # Bowel Movements 38 Result Diagram: 08/17/1660408/17/16 06 Assessment & Plan Impression SBO, resolved Problems: Plan Discharge per hospitalist service with Home health and oxygen. Resuscitation Status: CPR: Attempt Resuscitation Josias Kay MD Aug 18, 2016 12:19
[2016-08-18] MEDS ORDERED: MELA5TAB14 PO (12:20)
[2016-08-18] MEDS ORDERED: BENZ-12 PO (12:20)
[2016-08-18] MEDS ORDERED: SERT50TA9 PO (12:20)
--- NOTE | 2016-08-18 12:29 | PCM.DIMED ---
Discharge Instructions Date of Service Aug 18, 2016 Dates of Hospitalization Aug 06, 2016 at 05:50 Discharge Diagnosis Discharge Diagnosis Small bowel obstruction (resolved) New-onset A. fib Hypokalemia Aspiration pneumonia Acute hypoxic respiratory failure Depression Coronary artery disease Medication Instructions You have been prescribed oxygen and her oxygen saturations has been very low. Please use the nasal cannula throughout the day however please used a face mask at nighttime while sleeping. You will need to use 4 L of oxygen. Diet Heart Healthy Activity No restrictions (gradually return to normal daily activities) Call your provider Fever or Chills, Shortness of breath, Chest pain, Weakness (unilateral) Patient Instructions Home health has been set up for further next few weeks. Follow-up with PCP in: 1 week (please follow-up with your PCP within one week and appointment is being made for you at the residency clinic. Please call the residency clinic for confirmation of your follow-up appointment [phone]) Follow-up in: 1 week (Please follow up with your traveling plant operator. If an appointment has not been made please call to schedule an appointment.) Shonna Armstrong DO Aug 18, 2016 12:29
[2016-08-18] MEDS ORDERED: ATEN25TA PO (12:33)
--- NOTE | 2016-08-18 12:38 | PCM.DC.MED ---
Discharge Summary Date of Service Aug 18, 2016 Dates of Hospitalization Date of Hospital Admission Aug 06, 2016 at 05:50 Date of Discharge: Aug 18, 2016 Providers: Admitting Physician: Edwige Sheriff DO Primary Care Physician: Nopcp Attending Physician: Edwige Sheriff DO Diagnosis at Time of Discharge Diagnosis at Time of Discharge Small bowel obstruction (resolved) New-onset A. fib Hypokalemia Aspiration pneumonia Acute hypoxic respiratory failure Depression Coronary artery disease Procedures XRay, CTs & MRIs PROCEDURE: CT ABDOMEN AND PELVIS WITHOUT CONTRAST ([id number]) INDICATIONS: sbo, post gastrectomy and whipple TECHNIQUE: After the administration of oral contrast, 5 mm thick sections acquired from the diaphragms to the symphysis. 5 mm coronal and sagittal reformats were performed. For radiation dose reduction, the following was used: automated exposure control, adjustment of mA and/or kV according to patient size. COMPARISON: [facility], CR, XR CHEST 1VW (PORTABLE), 08/06/2016, 5: 45. FINDINGS: Image quality: Excellent. ABDOMEN: Lung bases: Bibasilar dependent atelectasis. Heart size is normal. There is severe coronary calcification and CABG. Solid organs: Left hepatic lobe is absent, likely surgically resected. There is pneumobilia. A 10 mm hypodensity in the posterior segment of the right hepatic lobe is noted, probably a cyst. Spleen is normal in size. Gallbladder is surgically absent. Pancreas is normal in size. No adrenal nodules. Both kidneys are normal in size, without hydronephrosis. There is a 3 mm non- obstructive stone in the superior pole of the right kidney. Bilateral exophytic renal cysts are present. Peritoneum and bowel: Surgical sutures seen in the stomach. Small bowel loops are distended measuring up to 4.5 cm. There are differential air-fluid levels. No transitional point is identified. There is abundant colonic gas. No free fluid or air. Nodes and vessels: No retroperitoneal or mesenteric adenopathy by size criteria. Aorta and inferior vena cava are normal in size. Miscellaneous: No ventral hernias. PELVIS: Genitourinary: Bladder wall thickness is normal. Miscellaneous: No inguinal hernias or adenopathy. Bones: No suspicious bony lesions. Mild compression deformity in L2, L3 and L4. IMPRESSION: 1. Distended small bowel to measure up to 4.5 cm. There is no transitional point identified. Abundant colonic gas is present. Differential diagnosis includes early small or partial small bowel obstruction versus ileus. Recommend clinical correlation and followup. 2. A 3 mm non-obstructive renal cyst in the superior pole. 3. Bilateral renal cysts. No significant discrepancy with the mold shifter radiology preliminary report. Cardiac Echo Impression Interpretation Summary Technically difficult study limiting valve visualization. 1) Mild concentric left ventricular hypertrophy with normal size. 2) Grossly normal systolic function, but assessment of LV function and wall motion limited by poor controlled ventricular rate due to atrial fibrillation. 3) Gross normal right ventricular size with mildly reduced function. 4) No significant valvular disease. 5) No prior Echo available for comparison. Recommend repeat Echo once patient's atrial fibrillation is better rate controlled. Brief History 81-year-old male with significant bowel surgeries in the past including Whipple surgery in 2005 complicated by bowel obstruction in 2006 required surgical intervention, mesh was placed. had ventral hernia repair in 2008, s/p gastrectomy lymphoma presented with sudden onset of abdominal pain starting early this morning. Patient was in usual state of health until this episode. Yesterday, patient had normal diet, noticing his belly size got bigger but had good loose BM twice(normally 3-5times per day), then around 1:30am this morning , due to very severe cramping pain periumbilical area, pt woke up, had one small soft BM subsequently. didn't have nausea, vomiting, Pain didn't resolve decided to come to ED. in ED, VS stable, labs showed normal wbc, mildly elevated lactate, cr1.29(1.17 in 2016), lipase5. CT abd/pelvis w/o contrast showed distended SB 4.5cm, multiple colonic gases, admitted to hospital given SBO, possible surgical intervention. TERRITORY DEVELOPMENT MANAGER fentanyl started. received zofran, protonix On interview at [facility], pt still in distress due to pain, nausea, had multiple dry heaves, but no vomiting.pt agreed on NG insertion ROS: no fever, chills, cough, sputum, chest pain, sob, has baseline frequent loose stools, no travel, sick contacts. Hospital Course This is a 81-year-old man admitted with small bowel obstruction who later developed a left lower lobe pneumonia, likely secondary to aspiration. This resulted in respiratory failure necessitated transfer to PCU for closer observation and respiratory support. Aspiration event was likely secondary to placement of his NG tube which is close significant pain for him and required initiation of TERRITORY DEVELOPMENT MANAGER. The patient did have some improvement and was able to tolerate a diet with his NG tube clamped. The NG tube was eventually discontinued, however, the patient's condition has not improved significantly. Patient presented with small bowel obstruction and new onset of A. fib with RVR. The patient also had an aspiration pneumonia which had a full ten-day course treatment of Zosyn. The patient small bowel junction has resolved and the patient is now in sinus rhythm with multiple PVCs. The patient did have acute hypoxic respiratory failure and is now currently on 4 L of oxygen. The patient has been encouraged to follow-up as an outpatient with his new PCP at the resident clinic and also to follow-up and also to follow-up with cardiology in the next 3 weeks. The patient is being discharged home in stable condition with home health. The patient did not qualify for home PT as he took too many steps. Patient is being discharged home in stable condition Please see below for full hospital course: Small bowel obstruction: POA, active and slowly improving. abdominal pain, nausea, vomiting, POA, likely SBO vs ileus, based on CT abd, multiple bowel surgical hx -Gen. surgery signing off -Patient is currently tolerating a general diet New-onset A. fib with RVR: Resolved. -Echocardiogram was unremarkable. The patient remains in sinus with frequent PVC's. Hypokalemia (resolved) -Potassium is 3.8 upon discharge -Replete potassium with 40 mEq -Continue to monitor Aspiration pneumonia, not POA. Improving. -Zosyn has been discontinued as the patient has had a full ten-day course of antibiotic therapy -Albuterol as needed Acute hypoxic respiratory failure, not POA. -Patient remains on 4 L of oxygen daily -Respiratory therapy to evaluate patient for possible home oxygen Acute grieving reaction, POA, and stable -Patient under a lot of pressure, son recently . -Continue Zoloft Coronary artery disease , POA -s/p CABG, continue home asa, BB, statin, lasix Hyperlipidemia, POA -Continue simvastatin Essential Hypertension, POA -Continue atenolol Asthma, POA. -Neb tx as needed CKD2, POA, stable. - Creatinine is at baseline and normal at 0.97 - Avoid renal toxin, adjust meds renally CODE STATUS: Full code DVT prophylaxis: SCDs Disposition: Patient is currently progressing. Patient's diet has been advanced by surgery and the patient has been tolerating this. Case was discussed with Dr. Kay (general surgery) and agree that the patient from a general surgery standpoint is stable to go home. The patient has been assessed by physical therapy and they do not recommend home PT however they do agree with the patient needing home health nursing. Patient will most likely be discharged tomorrow with home health and home O2. Exam Vital Signs (Last) Date Time Temp Pulse Resp B/P Pulse Ox O2 Delivery O2 Flow Rate FiO2 08/18/16 11:51 78 20 92 Nasal Cannula 4.00 08/18/16 07:30 37.1 136/77 Test 08/06/16 04:35 08/06/16 16:22 08/07/16 03:20 08/08/16 03:25 Prothrombin Time 10.6sec (8.1-12.5) Prothromb Time International Ratio 0.99ratio Lipase 5U/L (13-60) Phosphorus Level 2.5mg/dL (2.5-4.9) Procalcitonin 16.71ng/mL (0.00-0.08) Band Neutrophils % 8% (1-5) Hematology Comments Test 08/11/16 18:00 08/12/16 03:50 08/14/16 07:45 08/15/16 08:15 Lactic Acid Level 1.5mmol/L (0.4-2.0) Neutrophils (%) (Auto) 75.8% (40-74) Lymphocytes (%) (Auto) 12.6% (14-46) Monocytes (%) (Auto) 8.8% (4-12) Eosinophils (%) (Auto) 1.4% (0-5) Basophils (%) (Auto) 0.9% (0-3) Magnesium Level 1.7mg/dL (1.6-2.6) Total Bilirubin 0.6mg/dL (0.0-1.2) Aspartate Amino Transf (AST/SGOT) 21U/L (0-50) Alanine Aminotransferase (ALT/SGPT) 17U/L (0-44) Alkaline Phosphatase 49U/L (25-160) Total Protein 5.3g/dL (6.4-8.4) Albumin 2.6g/dL (3.4-5.0) Test 08/17/16 04:45 08/17/16 06:05 Urine Color Yellow (YELLOW) Urine Appearance Clear (CLEAR,HAZY) Urine pH 6.0 (5.0-8.0) Urine Specific [place] 1.015 (1.003-1.035) Urine Protein Negativemg/dL (NEG,TRACE) Urine Glucose (UA) Negativemg/dL (NEGATIVE) Urine Ketones Negativemg/dL (NEGATIVE) Urine Occult Blood Negative (NEGATIVE) Urine Nitrite Negative (NEGATIVE) Urine Bilirubin Negative (NEGATIVE) Urine Urobilinogen Normalmg/dL (NORMAL) Urine Leukocyte Esterase Negative (NEGATIVE) Urine RBC 0-2/hpf (0-2) Urine WBC 0-5/hpf (0-5) Urine Epithelial Cells Few/hpf (NONE-MOD) Urine Crystals None seen (NONE SEEN) Urine Bacteria Few/hpf (NONE-FEW) Urine Hyaline Casts None/lpf (NONE) Urine Granular Casts None seen (NONE SEEN) Urine Waxy Casts None seen (NONE SEEN) Urine Red Blood Cell Casts None seen (NONE SEEN) Urine White Blood Cell Casts None seen (NONE SEEN) Urine Mucus None seen (None Seen) Urine Trichomonas None seen (NONE SEEN) Urine Yeast None (NONE SEEN) Urinalysis Comment None Urine Culture Reflexed Not indicated Hold Urine Received (Received) White Blood Count 6.3th/mm3 (3.8-10.1) Red Blood Count 3.75mil/mm3 (4.40-5.80) Hemoglobin 11.5g/dL (13.8-17.2) Hematocrit 33.9% (41.0-50.0) Mean Corpuscular Volume 90.4fL (81-100) Mean Corpuscular Hemoglobin 30.7pg (27.0-35.0) Mean Corpuscular Hemoglobin Concent 33.9% (32.0-37.0) Red Cell Distribution Width 13.3% (12.3-15.4) Platelet Count 204bil/L (150-400) Sodium Level 138mEq/L (134-144) Potassium Level 3.8mEq/L (3.5-5.2) Chloride Level 100mEq/L (97-108) Carbon Dioxide Level 25mmol/L (18-29) Blood Urea Nitrogen 7mg/dL (8-27) Creatinine 0.98mg/dL (0.76-1.27) Estimat Glomerular Filtration Rate 78mL/min (>59) Glucose Level 124mg/dL (60-99) Calcium Level 8.1mg/dL (8.5-10.1) Discharge Medications Discharge Medications Aspirin (Aspirin) 81 Mg Tablet.dr 81 MG PO QAM (Reported) Atenolol (Atenolol) 25 Mg Tablet 12.5 MG PO QAM Prescribed by: DEJUAN ARMSTRONG DO Cholecalciferol (Vitamin D3) (Vitamin D3) 2,000 Unit Capsule 2,000 UNIT PO QAM ( Reported) Fluticasone Propionate (Fluticasone Propionate Nasal) 16 Gm [place].susp 2 SPRAY NS DAILY (Reported) Furosemide (Furosemide) 40 Mg Tablet 20 MG PO QAM (Reported) Lipase/Protease/Amylase (Creon DR) 1 Each Capsule.dr 2 EACH PO with meals ( Reported) Multivitamin (Once Daily) 1 Each Tablet 1 EACH PO QAM (Reported) [place]-3/Dha/Epa/Fish Oil ([place]-3 Fish Oil 1,200 mg Sfgl) 1,200 Mg Capsule 1, 200 MG PO BID (Reported) Potassium Chloride (Potassium Chloride) 40 Meq/15 Ml Liquid 20 MEQ PO QAM ( Reported) Sertraline HCl (Sertraline) 50 Mg Tablet 50 MG PO DAILY Prescribed by: DEJUAN ARMSTRONG DO Simvastatin (Simvastatin) 20 Mg Tablet 10 MG PO HS (Reported) As needed Benzonatate (Tessalon Perle) 100 Mg Capsule 100 MG PO TID PRN PRN For Cough Prescribed by: DEJUAN ARMSTRONG DO Melatonin (Melatonin) 5 Mg Tablet 5 MG PO HS PRN PRN Insomnia Prescribed by: DEJUAN ARMSTRONG DO Nitroglycerin SL (Nitrostat) 0.4 Mg Tab.subl 0.4 MG SL Q5MIN PRN PRN For Chest Pain (Reported) Additional med instructions You have been prescribed oxygen and her oxygen saturations has been very low. Please use the nasal cannula throughout the day however please used a face mask at nighttime while sleeping. You will need to use 4 L of oxygen. Followup Plan Discharge Diet: Heart Healthy Discharge Activity: No restrictions (gradually return to normal daily activities) Patient Instructions Home health has been set up for further next few weeks. Follow-up with PCP in: 1 week (please follow-up with your PCP within one week and appointment is being made for you at the residency clinic. Please call the residency clinic for confirmation of your follow-up appointment [phone]) Follow-up in: 1 week (Please follow up with your piano builder. If an appointment has not been made please call to schedule an appointment.) Time spent Greater than 35 minutes Dejuan Armstrong DO Aug 18, 2016 12:38
--- NOTE | 2016-08-18 14:12 | NUR ---
Social Work: Discharge Data & Assessment: Cabin Agent met with patient and patient's at bedside to discuss discharge plan. Patient will discharge home with [facility] and Home O2. Patient voiced understanding and was in agreement. SW called Ariel at [facility] and notified him that patient was discharging 08/18/16. Patient will be transported home via POV. Plan: Patient will discharge home with [facility] and home O2. Patient's daughter will pick him up. SW will continue to follow and assist patient. Reena Carl LMSW, ACTeresita
--- NOTE | 2016-08-18 14:23 | NUR ---
DISCHARGE Patient denies pain. Tolerating liquids PO and his diet well. Denies nausea. No emesis noted. + 1 soft, medium BM this morning. Denies SOB. Patient has been ambulating with SBA and has been tolerating it well. Gait is steady. IV saline lock d/cd. Discharge instructions, care notes and prescription was given to the patient and he verbalized understanding,. Discharged to home with his daughter and all his personal belongings. (Copy of D/C is in the chart). *HHS and O2 has been set-up for the patient prior to D/C. Instructions RE: O2 was given to the patient by RT.
== END 2016-08-18 14:13 | disposition home health service (06) | DRG 388 ==
LOC: SED 03:56 → OSC 05:50 → PCC 17:59 → OSC 08-14 16:13
PROVIDERS: ADMIT Internal Medicine; ATTEND Internal Medicine
DX: K56.60 Unspecified intestinal obstruction (principal); J69.0 Pneumonitis due to inhalation of food and vomit; J96.01 Acute respiratory failure with hypoxia; I25.10 Atherosclerotic heart disease of native coronary artery without angina pectoris; E78.5 Hyperlipidemia, unspecified; N18.2 Chronic kidney disease, stage 2 (mild); I12.9 Hypertensive chronic kidney disease with stage 1 through stage 4 chronic kidney disease, or unspecified chronic kidney disease; I48.91 Unspecified atrial fibrillation; Z87.891 Personal history of nicotine dependence; F43.21 Adjustment disorder with depressed mood; E87.6 Hypokalemia

== ENCOUNTER 2016-08-26 11:11 | Inpatient (IN) | payer MEDICARE ==
[~2016-08-26] VITALS: Ht 193 cm; Wt 89.9 kg
[2016-08-26] VITALS (9 sets, daily range): BP systolic 107–154; BP diastolic 57–76; PULSE 60–98; RESP 14–26; O2SAT 92–96
[~2016-08-26 11:11] MED LIST changes: +BENZ-12 PO; -LEVO750T9 PO; +MELA5TAB14 PO; +SERT50TA9 PO
--- NOTE | 2016-08-26 11:23 | ED.REPORT ---
HPI-Dyspnea / Wheezing Date of Service Aug 26, 2016 ED Provider: History of Present Illness: really short of breath for 3 to 4 days. recently in hospital for bowel obstruction had aspiration pneumonia. lost 22 lbs since discharge but states he is stacking it. sob worse since Friday. primary care is clayton at [facility] in [place]. [place] [address]. had left shoulder blade pain when sob started now at 2 initially a 7 or 8/10 pain Nursing Notes Stated Complaint: SOB Chief Complaint: Respiratory Complaints Nursing Notes Reviewed: Yes Allergies: Coded Allergies: hydromorphone (Verified Allergy, Unknown, 08/06/16) Scheduled Aspirin (Aspirin) 81 Mg Tablet.dr 81 MG PO QAM Atenolol (Atenolol) 25 Mg Tablet 12.5 MG PO QAM Cholecalciferol (Vitamin D3) (Vitamin D3) 2,000 Unit Capsule 2,000 UNIT PO QAM Furosemide (Furosemide) 40 Mg Tablet 20 MG PO QAM Lipase/Protease/Amylase (Creon DR) 1 Each Capsule.dr 2 EACH PO TIDWM 01330 UNITS Multivitamin (Once Daily) 1 Each Tablet 1 EACH PO QAM Potassium Chloride (Potassium Chloride) 40 Meq/15 Ml Liquid 20 MEQ PO QAM Sertraline HCl (Sertraline) 50 Mg Tablet 50 MG PO DAILY Simvastatin (Simvastatin) 20 Mg Tablet 10 MG PO HS Scheduled PRN Benzonatate (Tessalon Perle) 100 Mg Capsule 100 MG PO TID PRN PRN For Cough Melatonin (Melatonin) 5 Mg Tablet 5 MG PO HS PRN PRN Insomnia Nitroglycerin SL (Nitrostat) 0.4 Mg Tab.subl 0.4 MG SL Q5MIN PRN PRN For Chest Pain Miscellaneous Medications [place]-3/Dha/Epa/Fish Oil ([place]-3 Fish Oil 1,200 mg Sfgl) 1,200 Mg Capsule 1, 200 MG PO General Time Seen by MD: 11:22 Chief Complaint Shortness of breath Hx Obtained From: Patient Sudden in Onset?: Yes Onset Occurred: Yesterday Context of Onset: Anxiety, Asthma attack, Bronchitis Recent Healthcare: Recent hospitalization Past Medical History Past Medical History Notes: PCP Dr. Morris Rosales ([place]) Past Medical History Pancreatic cancer (in remission) in 2005 small bowel obstruction lymphoma s/p gastrectomy Reports: Coronary artery disease, Hyperlipidemia, Hypertension Past Surgical History Quadruple bypass in 1996 Whipple in 2006 Bowel obstruction surgery Hernia surgery (mesh was placed) gastrectomy Family History Reviewed, not relevant Smoking History Former Smoker Social History Alcohol Use: Denies alcohol use Drug Use: Denies drug use Other Social History: Good social support, , Local resident Occupation is in [employer], lives by self in 1 story house Ambulatory Status Independent Review of Systems Review of Systems Note: hard of hearing Basic Review of Systems Eyes: Vision NL, No discharge Psychiatric: Normal thought content Physical Exam Initial Vital Signs Vital Signs (First) Date Time Temp Pulse Resp B/P Pulse Ox O2 Delivery O2 Flow Rate FiO2 08/26/16 11:13 36.6 63 26 107/72 92 Room Air Initial VS: Reviewed, Vital signs normal Head / Eyes: Atraumatic, Normocephalic, PERRL ENT: Mucous membranes moist, Conjunctiva normal, No scleral icterus Abdomen / GI: Soft, Non-tender, No guarding, No rebound, No distention Back: No CVA tenderness Lymphatic: No lymphadenopathy Extremities: Vascular intact, Neuro intact, No swelling, No tenderness Skin: Warm, Dry, No cyanosis Neurologic: Alert, Oriented, Nonfocal Psychiatric: Mood/affect normal, Behavior normal, Normal thought content General/Constitutional: Awake, Alert, No acute distress, Well appearing, Well developed, Well hydrated, Well nourished, Cooperative, Not toxic appearing Neck: Atraumatic, Supple, No meningismus, Full range of motion Respiratory / Chest: Atraumatic, Breath sounds = bilat Diminished Breath Sounds: Positive: Decreased bilateral patient with RR rate of 32 with accessory muscle use Cardiovascular: Heart rate NL, Regular rhythm, Heart sounds NL, No gallop Abdomen: Atraumatic, Soft, Non-tender, McBurney's non-tender, No guarding, No rebound, BS normoactive, No distention, No hernia, No palpable mass, No pulsatile mass Interpretation & Diagnostics Lab Results Interpretation Result Diagram: 08/26/16 1205 08/26/16 1205 Test 08/26/16 12:05 White Blood Count 5.9th/mm3 (3.8-10.1) Red Blood Count 4.32mil/mm3 (4.40-5.80) Hemoglobin 13.0g/dL (13.8-17.2) Hematocrit 39.4% (41.0-50.0) Mean Corpuscular Volume 91.2fL (81-100) Mean Corpuscular Hemoglobin 30.1pg (27.0-35.0) Mean Corpuscular Hemoglobin Concent 33.0% (32.0-37.0) Red Cell Distribution Width 13.2% (12.3-15.4) Platelet Count 388bil/L (150-400) Neutrophils (%) (Auto) 67.6% (40-74) Lymphocytes (%) (Auto) 18.5% (14-46) Monocytes (%) (Auto) 11.6% (4-12) Eosinophils (%) (Auto) 1.5% (0-5) Basophils (%) (Auto) 0.5% (0-3) Prothrombin Time 11.2sec (8.1-12.5) Prothromb Time International Ratio 1.05ratio Sodium Level 135mEq/L (134-144) Potassium Level 4.7mEq/L (3.5-5.2) Chloride Level 97mEq/L (97-108) Carbon Dioxide Level 22mmol/L (18-29) Blood Urea Nitrogen 19mg/dL (8-27) Creatinine 1.25mg/dL (0.76-1.27) Estimat Glomerular Filtration Rate 59mL/min (>59) Glucose Level 103mg/dL (60-99) Lactic Acid Level 2.3mmol/L (0.4-2.0) Calcium Level 9.7mg/dL (8.5-10.1) Total Bilirubin 0.4mg/dL (0.0-1.2) Aspartate Amino Transf (AST/SGOT) 24U/L (0-50) Alanine Aminotransferase (ALT/SGPT) 18U/L (0-44) Alkaline Phosphatase 70U/L (25-160) Troponin T 0.011ug/L (0.0-0.011) Pro-B-Type Natriuretic Peptide 401.5pg/mL (0-486) Total Protein 8.2g/dL (6.4-8.4) Albumin 3.5g/dL (3.4-5.0) CT Chest Interpretation ROCEDURE: CT ANGIO CHEST PULMONARY EMBOLISM ([id number]) INDICATIONS: increaseing SOB TECHNIQUE: After the administration of intravenous contrast, 2 mm thick sections acquired from the pulmonary apices to the posterior costophrenic angles. 3-dimensional maximum intensity projection (MIP) coronal and sagittal reformats were then acquired through the thorax. For radiation dose reduction, the following was used: automated exposure control, adjustment of mA and/or kV according to patient size. COMPARISON: [facility], CT, ABD/PELVIS W/CON (PNL), 05/12/2014, 20:36. [facility], CT, CT ABD PELVIS WO CON, 08/06/2016, 4:47. FINDINGS: Image quality: Excellent. Pulmonary arteries: There is a nonocclusive filling defect within a subsegmental branch of the left upper lobe (series 4, image 50). Lungs and pleura: Multifocal pulmonary radiopacities are present throughout both lungs most confluent within the dependent portions of the right upper lobe and the dependent portions of the right lower lobe. There is a small low density right pleural effusion. No pneumothorax. Mediastinum: Heart size is normal, without pericardial effusion. There are multiple shotty mediastinal lymph nodes. A subcarinal lymph node measures 17 mm in diameter. Thoracic aorta is normal in caliber and enhancement. Esophagus is normal in caliber, without hiatal hernia. Bones and chest wall: Patient is status post median sternotomy. No suspicious bony lesions. Ribs and thoracic spine appear intact throughout. Thyroid gland is unremarkable. No axillary or supraclavicular adenopathy. Abdomen: A subcentimeter low-density lesion is present within hepatic segment unchanged from the study dated 05/12/14. This is incompletely characterize, but likely represents a hepatic cyst. There is pneumobilia in the left hepatic lobe, unchanged from prior studies, and consistent with the patient's history of Whipple procedure. Visualized upper abdominal solid organs appear otherwise unremarkable in the early arterial phase of enhancement. IMPRESSION: 1. Nonocclusive, subsegmental pulmonary embolus in the left upper lobe. 2. Multifocal pulmonary radiopacities suspicious for multifocal pneumonia. Short interval followup is recommended with resolution of the patient's symptoms to ensure there is no underlying pulmonary pathology. 3. Mediastinal adenopathy, likely infectious/reactive in nature; however neoplasm cannot be excluded and followup is recommended. These findings were discussed with MICHAEL Reyna at 3:30 PM on 08/26/16. Dictated by: Melissa Goddard M.D. on 08/26/2016 at 15:26 Approved by: Melissa Goddard M.D. on 08/26/2016 at 15:38 Re-Eval/Medical Decision Med Decision/Clinical Course 81 year old male presents for evualation of increasing shoertness of breath. Patient with hx of pancreatic CA with whipple procedule in 2005. Patient states when he lost weight last time was when the pancreatic cancer was discovered. . No sign of congestive heart failure or [place] Discharge & Departure Impression: Primary Impression: Dyspnea Dyspnea type: dyspnea on exertion Qualified Code: R06.09 - Other forms of dyspnea Disposition: ADMITTED TO HOSPITAL EDSupervising Provider for APC: Nae Ventura MD, Sue ARNP Aug 26, 2016 11:23
[2016-08-26] MEDS ORDERED: Albuterol 2.5 mg/3 mL Inhalation Solution NEB ONE (11:35)
[2016-08-26 12:20] LABS: BASOPHILS % (AUTO) 0.5 % (0-3); EOSINOPHILS % (AUTO) 1.5 % (0-5); MONOCYTES % (AUTO) 11.6 % (4-12); Mean Corpuscular Hemoglobin 30.1 pg (27.0-35.0); Mean Corpuscular Volume 91.2 fL (81-100); NEUTROPHILS % (AUTO) 67.6 % (40-74); Platelet Count 388 bil/L (150-400)
[2016-08-26] MEDS ORDERED: 0.9% Sodium Chloride 1,000 ML IV ONE (12:50)
[2016-08-26 12:55] LABS: TROPONIN T 0.011 ug/L (0.0-0.011)
--- NOTE | 2016-08-26 13:04 | DRSVH ---
PROCEDURE: X-RAY CHEST, TWO VIEWS ([id number]) INDICATIONS: SOB TECHNIQUE: 2 views of the chest were acquired. COMPARISON: [facility], CR, XR CHEST 1VW (PORTABLE), 08/19/2015, 5:24. [facility], CR, XR CHEST 1VW (PORTABLE), 08/08/2016, 15:01. FINDINGS: Surgical changes and devices: Endotracheal tube has been removed. Sternal wires are unchanged. Lungs and pleura: There is a persistent appearance of bilateral pulmonary opacities, right greater th an left. There is mild interval improvement on the right, minimal on the left. Mediastinum: Mediastinal contours are normal. Heart size is normal. Bones and chest wall: No suspicious bony abnormalities. Soft tissues appear unremarkable. IMPRESSION: Persistent bilateral pulmonary opacities as above with interval mild improvement. Recomme nd interval followup after appropriate therapy to document resolution. Dictated by: Mechelle Stephen M.D. on 08/26/2016 at 13:01 Approved by: Mechelle Stephen M.D. on 08/26/2016 at 13:03
--- NOTE | 2016-08-26 15:39 | DRSVH ---
PROCEDURE: CT ANGIO CHEST PULMONARY EMBOLISM ([id number]) INDICATIONS: increaseing SOB TECHNIQUE: After the administration of intravenous contrast, 2 mm thick sections acquired from the pulmonary api zayda to the posterior costophrenic angles. 3-dimensional maximum intensity projection (MIP) coronal a nd sagittal reformats were then acquired through the thorax. For radiation dose reduction, the follo wing was used: automated exposure control, adjustment of mA and/or kV according to patient size. COMPARISON: [facility], CT, ABD/PELVIS W/CON (PNL), 05/12/2014, 20:36. [facility], CT, CT ABD PELVIS WO CON, 08/06/2016, 4:47. FINDINGS: Image quality: Excellent. Pulmonary arteries: There is a nonocclusive filling defect within a subsegmental branch of the left u pper lobe (series 4, image 50). Lungs and pleura: Multifocal pulmonary radiopacities are present throughout both lungs most confluen t within the dependent portions of the right upper lobe and the dependent portions of the right lower lobe. There is a small low density right pleural effusion. No pneumothorax. Mediastinum: Heart size is normal, without pericardial effusion. There are multiple shotty mediastin al lymph nodes. A subcarinal lymph node measures 17 mm in diameter. Thoracic aorta is normal in calib er and enhancement. Esophagus is normal in caliber, without hiatal hernia. Bones and chest wall: Patient is status post median sternotomy. No suspicious bony lesions. Ribs and thoracic spine appear intact throughout. Thyroid gland is unremarkable. No axillary or supraclavic ular adenopathy. Abdomen: A subcentimeter low-density lesion is present within hepatic segment unchanged from the study dated 05/12/14. This is incompletely characterize, but likely represents a hepatic cyst. There is pneumobilia in the left hepatic lobe, unchanged from prior studies, and consistent with the patient' s history of Whipple procedure. Visualized upper abdominal solid organs appear otherwise unremarkable in the early arterial phase of enhancement. IMPRESSION: 1. Nonocclusive, subsegmental pulmonary embolus in the left upper lobe. 2. Multifocal pulmonary radiopacities suspicious for multifocal pneumonia. Short interval followup is recommended with resolution of the patient's symptoms to ensure there is no underlying pulmonary pat hology. 3. Mediastinal adenopathy, likely infectious/reactive in nature; however neoplasm cannot be excluded and followup is recommended. These findings were discussed with MICHAEL Reyna at 3:30 PM on 08/26/16. Dictated by: Melissa Goddard M.D. on 08/26/2016 at 15:26 Approved by: Melissa Goddard M.D. on 08/26/2016 at 15:38
[2016-08-26] MEDS ORDERED: Piperacillin-Tazo 3.375 Gm Inj 3.375 GM in Dextrose 5% Minibag Plus 50 ML IV ONE (16:00)
[2016-08-26] MEDS ORDERED: Heparin 1,000 Units/mL 10 mL DVT/PE Bolus Inj IVPUSH ONE (16:00)
[2016-08-26 17:12] LABS: INR 1.05 ratio
[2016-08-26] MEDS ORDERED: Alum-Mag Hydrox-Simeth 30 mL Suspension PO PRN ×2 (17:15→17:50)
[2016-08-26] MEDS ORDERED: Polyethylene Glycol (PEG) 17 Gm Powder PO PRN ×2 (17:15→17:50)
[2016-08-26] MEDS ORDERED: Ondansetron 2 mg/mL 2 mL Inj IVPUSH PRN ×2 (17:15→17:50)
[2016-08-26] MEDS ORDERED: Heparin 5,000 Unit/mL Inj IVPUSH PRN (17:50)
[2016-08-26] MEDS: Heparin 25K Unit/500mL 0.45 NS 25,000 UNIT in IV Premix 1 EACH IV SCH (18:18)
--- NOTE | 2016-08-26 18:32 | NUR ---
ADMIT Admitted a 81/M into room 3027 following report from ED RN Maira West Pt able to self transfer [facility] to , req SBA. Pt denies any SOB/distress with movement, currently on 1L via GA states it's supportive only as he does not use 02 at home. Heparin gtt ordered, started at 18u/kg/hr per protocol, currently running at 33.2ml/hr. Above double checked with weigher and charger, Patrick Martin. Pt educated on Heparin, side effects and to monitor for bleeding. Pt aware that stool will be guiaic'd and reports understanding. Pt introduced to staff, call light/bed controls. Bed in lowest, locked position.
--- NOTE | 2016-08-26 18:38 | NUR ---
Heparin bolus Spoke with MD re: Heparin bolus ordered at 1600 in ED. Per MD, do not give bolus.
--- NOTE | 2016-08-26 19:33 | PCM.HPMED ---
Subjective Date of Service Aug 26, 2016 Primary Provider: Admitting Physician: Indra Lorenzana MD Primary Care Physician: Marilynn Attending Physician: Indra Lorenzana MD Chief Complaint: Shortness of breath History of Present Illness: 81-year-old male with past history as noted below and notable for history of pancreatic cancer s/p Whipple procedure (presumed in remission) who was hospitalized just a couple of weeks ago for acute SBO and during that hospitalization was treated with full course of IV Zosyn for presumed aspiration pneumonia presents today with report of ongoing and worsening shortness of breath for the past 3 days. He was discharged from the hospital on 08/18/16 to home with home health and was doing well at home, so much so, that his visiting nurse told him she did not need to follow him at home any more. On Friday (3 days ago) he started feeling some shortness of breath that progressively got worse till today. This was associated with some pleuritic left posterior chest pain as well. He otherwise denies any fever, chills, cough , sore throat, rhinorrhea, or sputum production. He reports some residual swelling in his left leg from recent hospitalization which he attributes to IV fluids that he received but denies any calf pain or tenderness. On further questioning he also expresses some concern about recent weight loss and thinks he may have lost about 20 lbs over the past week or so. He says that during his recent hospitalization no body had placed SCD's on him and he does not recall receiving any subcutaneous shots for DVT prophylaxis either. In the ED he received a dose of IV Zosyn fore presumed pneumonia before his CTA of chest was noted to be positive for PE. Allergies Coded Allergies: hydromorphone (Verified Allergy, Unknown, 08/06/16) Home Medications Aspirin (Aspirin) 81 Mg Tablet. 81 MG PO QAM (Reported) Atenolol (Atenolol) 25 Mg Tablet 12.5 MG PO QAM Prescribed by: DEJUAN YOUSIF DO Cholecalciferol (Vitamin D3) (Vitamin D3) 2,000 Unit Capsule 2,000 UNIT PO QAM ( Reported) Fluticasone Propionate (Fluticasone Propionate Nasal) 16 Gm [place].susp 2 SPRAY NS DAILY (Reported) Furosemide (Furosemide) 40 Mg Tablet 20 MG PO QAM (Reported) Lipase/Protease/Amylase (Joseph FOWLER) 1 Each Capsule.dr 2 EACH PO with meals ( Reported) Multivitamin (Once Daily) 1 Each Tablet 1 EACH PO QAM (Reported) [place]-3/Dha/Epa/Fish Oil ([place]-3 Fish Oil 1,200 mg Sfgl) 1,200 Mg Capsule 1, 200 MG PO BID (Reported) Potassium Chloride (Potassium Chloride) 40 Meq/15 Ml Liquid 20 MEQ PO QAM ( Reported) Sertraline HCl (Sertraline) 50 Mg Tablet 50 MG PO DAILY Prescribed by: DEJUAN YOUSIF DO Simvastatin (Simvastatin) 20 Mg Tablet 10 MG PO HS (Reported) As needed Benzonatate (Tessalon Perle) 100 Mg Capsule 100 MG PO TID PRN PRN For Cough Prescribed by: DEJUAN YOUSIF DO Melatonin (Melatonin) 5 Mg Tablet 5 MG PO HS PRN PRN Insomnia Prescribed by: DEJUAN YOUSIF DO Nitroglycerin SL (Nitrostat) 0.4 Mg Tab.subl 0.4 MG SL Q5MIN PRN PRN For Chest Pain (Reported) Exam Vital Signs & I/O Vital Sign- Last 8 Hours Date Time Temp Pulse Resp B/P Pulse Ox O2 Delivery O2 Flow Rate FiO2 08/26/16 18:09 36.7 60 20 130/76 96 Nasal Cannula 1.00 08/26/16 18:06 62 08/26/16 16:07 36.6 66 15 154/76 96 Room Air 08/26/16 13:11 98 25 134/57 94 Room Air 08/26/16 12:36 62 20 96 Room Air 08/26/16 12:04 61 14 111/69 95 Room Air Lab & Micro Results Laboratory Tests Test 08/26/16 12:05 08/26/16 18:44 White Blood Count 5.9th/mm3 (3.8-10.1) Red Blood Count 4.32mil/mm3 (4.40-5.80) Hemoglobin 13.0g/dL (13.8-17.2) Hematocrit 39.4% (41.0-50.0) Mean Corpuscular Volume 91.2fL (81-100) Mean Corpuscular Hemoglobin 30.1pg (27.0-35.0) Mean Corpuscular Hemoglobin Concent 33.0% (32.0-37.0) Red Cell Distribution Width 13.2% (12.3-15.4) Platelet Count 388bil/L (150-400) Neutrophils (%) (Auto) 67.6% (40-74) Lymphocytes (%) (Auto) 18.5% (14-46) Monocytes (%) (Auto) 11.6% (4-12) Eosinophils (%) (Auto) 1.5% (0-5) Basophils (%) (Auto) 0.5% (0-3) Prothrombin Time 11.2sec (8.1-12.5) Prothromb Time International Ratio 1.05ratio Sodium Level 135mEq/L (134-144) Potassium Level 4.7mEq/L (3.5-5.2) Chloride Level 97mEq/L (97-108) Carbon Dioxide Level 22mmol/L (18-29) Blood Urea Nitrogen 19mg/dL (8-27) Creatinine 1.25mg/dL (0.76-1.27) Estimat Glomerular Filtration Rate 59mL/min (>59) Glucose Level 103mg/dL (60-99) Lactic Acid Level 2.3mmol/L (0.4-2.0) 0.7mmol/L (0.4-2.0) Calcium Level 9.7mg/dL (8.5-10.1) Total Bilirubin 0.4mg/dL (0.0-1.2) Aspartate Amino Transf (AST/SGOT) 24U/L (0-50) Alanine Aminotransferase (ALT/SGPT) 18U/L (0-44) Alkaline Phosphatase 70U/L (25-160) Troponin T 0.011ug/L (0.0-0.011) Pro-B-Type Natriuretic Peptide 401.5pg/mL (0-486) Total Protein 8.2g/dL (6.4-8.4) Albumin 3.5g/dL (3.4-5.0) Activated Partial Thromboplast Time 30.6sec (22.8-33.0) Microbiology 08/26/16 Blood Culture, Received Pending Result Diagram: 08/26/16 1205 08/26/16 1205 Review of Systems: Constitutional: Negative, except as otherwise mentioned in the history above. Ophthalmologic: Negative, except as otherwise mentioned in the history above. Cardiovascular: Negative, except as otherwise mentioned in the history above. Respiratory: Negative, except as otherwise mentioned in the history above. Gastrointestinal: Negative, except as otherwise mentioned in the history above. Genitourinary: Negative, except as otherwise mentioned in the history above. Musculoskeletal: Negative, except as otherwise mentioned in the history above. Neurological: Negative, except as otherwise mentioned in the history above. Psychiatric: Negative, except as otherwise mentioned in the history above. Hematologic/Lymphatic: Negative, except as otherwise mentioned in the history above. Allergic/Immunologic: Negative, except as otherwise mentioned in the history above. PMH 1. Coronary Artery Disease, status post 4-vessel bypass 2. Pancreatic Cancer, status post whipple procedure 3. Essential Hypertension 4. Hyperlipidemia 5. Asthma 6. Small bowel obstruction as noted in HPI Surgical History 1. CABG, 4-vessel in 1996 2. Whipple Procedure in 2005 3. mesh placement due to SBO in 2006 4. ventral hernia repair in 2008 Family History father had heart attack Social History Hx Alcohol Use: Yes Hx Substance Use: No (remote, quit smoking 1973, used to smoke 3ppd for 2yrs) Smoking Status: Former Smoker Exam Vital Signs Vital Sign - Last Date Time Temp Pulse Resp B/P Pulse Ox O2 Delivery O2 Flow Rate FiO2 08/26/16 18:09 36.7 60 20 130/76 96 Nasal Cannula 1.00 General: Alert, Oriented X3, Cooperative, No Acute Distress Head: Normal Eyes: PERRLA, EOMI, Scleral Anicteric Nose: Mucous Membr Moist/Circle [place] Mouth: Mucous Membr Moist/Circle [place] Neck: Supple Chest & Lungs: Chest Wall Normal, Clear to auscultation & percussion Cardiovascular: Regular Rate/Rhythm Pulses: NL carotid, radial, femoral, DP, PT Abdomen: Non-tender, Non-distended, Normoactive bowel tones, Soft Extremities: No cyanosis/clubbing/edma bilat (except trace edema in left leg with evidence of scar noted from prior CABG) Neurological: Grossly Neurologically Intact, Cranial Nerves 2-12 Intact, Normal Speech Additional Information: Psych: appropriate affect, calm, and pleasant. Lab and Diagnostics Result Diagram: 08/26/16 1205 08/26/16 1205 X-Rays, CTs and MRIs Date of Service: 08/26/16 1132 PROCEDURE: X-RAY CHEST, TWO VIEWS ([id number]) IMPRESSION: Persistent bilateral pulmonary opacities as above with interval mild improvement. Recommend interval followup after appropriate therapy to document resolution. Dictated by: Mechelle Stephen M.D. on 08/26/2016 at 13:01 Approved by: Mechelle Stephen M.D. on 08/26/2016 at 13:03 Date of Service: 08/26/16 1307 PROCEDURE: CT ANGIO CHEST PULMONARY EMBOLISM ([id number]) IMPRESSION: 1. Nonocclusive, subsegmental pulmonary embolus in the left upper lobe. 2. Multifocal pulmonary radiopacities suspicious for multifocal pneumonia. Short interval followup is recommended with resolution of the patient's symptoms to ensure there is no underlying pulmonary pathology. 3. Mediastinal adenopathy, likely infectious/reactive in nature; however neoplasm cannot be excluded and followup is recommended. These findings were discussed with MICHAEL Reyna at 3:30 PM on 08/26/16. Dictated by: Melissa Goddard M.D. on 08/26/2016 at 15:26 Approved by: Melissa Goddard M.D. on 08/26/2016 at 15:38 12-lead ECG not done Assessment & Plan 81-year-old male with recent hospitalization and was discharged just 8 days ago presents with complaint of ongoing and worsening shortness of breath for past 3 days. # Acute shortness of breath due to acute pulmonary embolism, present on admission. - Start heparin drip per protocol - Coumadin (dose per pharmacy) with daily INR while inpatient - Check limited echo - Suspect acute PE due to a DVT from recent hospitalization. Will order bilateral LE U/S as well to determine extent of DVT, if any. # Evidence of pneumonia on imaging studies. - I doubt active infectious pneumonia given no leukocytosis, fever, or sputum. I suspect CXR and CT findings are just residual and lagging from recent pneumonia - Will hold off on further antibiotics. - Recheck labs and procalcitonin in am # History of Coronary Artery Disease, status post 4-vessel bypass. Presumed stable - Continue with home cardiac medications # Acute elevated lactic acid. present on admission - Followup to ensure normalize # Essential Hypertension. Stable - Continue with home meds - Will hold off on Lasix for now until Lacic acid normalize # Hyperlipidemia - Continue with statin # Pancreatic Cancer, status post Whipple procedure - Further followup with oncology as outpatient Expected length of hospital stay is greater than 2 midnights and likely 2-3 days GI Prophylaxis: Proton Pump Inhibitor VTE Prophylaxis: Other (heparin drip and bridging to Coumadin) Resuscitation Status: CPR: Attempt Resuscitation (discussed and verified with the patient) Time spent 65 min Evans Quinones Aug 26, 2016 19:33
[2016-08-26 20:00] LABS: APPEARANCE,URINE CLEAR (CLEAR,HAZY); COLOR,URINE YELLOW (YELLOW); OCCULT BLOOD,URINE NEGATIVE (NEGATIVE); UROBILINOGEN,URINE NORMAL (NORMAL)
--- NOTE | 2016-08-26 21:45 | PCM.PHAPRO ---
Progress Date of Service: Aug 26, 2016 Shortness of breath Warfarin Management per Pharmacy: Indication: Pulmonary embolism Goal INR: 2-3 Home Dose: New Start Labs: Hgb/Hct: 13/39.4 INR: 1.05 Additional Anticoagulants: Heparin drip (bridging until INR > 2.0 and received 5 days of parenteral anticoagulants) Antiplatelets: Aspirin Drug Interactions: None Recommendation: Warfarin 5 mg PO x 1 tonight. Pharmacy to continue to monitor for signs/symptoms of bleeding and adjust warfarin as needed. Thank You, Monique Tolentino, Pharm D. Monique Tolentino Aug 26, 2016 21:45
[2016-08-27] VITALS (8 sets, daily range): BP systolic 124–160; BP diastolic 78–83; PULSE 62–76; RESP 18–20; O2SAT 94–96
--- NOTE | 2016-08-27 04:21 | NUR ---
PT ACTIVITY Pt has been up to BR during shift, SBA w/ IV pole. Pt states that he continues to have SOB w/ activity, but somewhat improved. Pt continues to use 1L oxygen. Continue to monitor. Call light in reach. Intentional rounding.
[2016-08-27 06:54] LABS: BASOPHILS % (AUTO) 0.6 % (0-3); EOSINOPHILS % (AUTO) 2.7 % (0-5); MONOCYTES % (AUTO) 9.5 % (4-12); Mean Corpuscular Hemoglobin 30.3 pg (27.0-35.0); Mean Corpuscular Volume 92.4 fL (81-100); Platelet Count 329 bil/L (150-400)
[2016-08-27 07:29] LABS: INR 1.08 ratio
[2016-08-27] MEDS ORDERED: Pancrelipase 5,000 Unit Capsule PO SCH ×2 (08:00→18:30)
[2016-08-27] MEDS: Pantoprazole 20 mg ER24 Tablet PO SCH (08:04)
[2016-08-27] MEDS: Pancrelipase 5,000 Unit Capsule PO SCH ×3 (08:06→17:23)
[2016-08-27] MEDS: Heparin 25K Unit/500mL 0.45 NS 25,000 UNIT in IV Premix 1 EACH IV SCH (09:12)
--- NOTE | 2016-08-27 11:27 | PCM.PHAPRO ---
Progress Date of Service: Aug 27, 2016 Shortness of breath WARFARIN MANAGEMENT A\ WARFARIN FOR PE GOAL INR 2-3 current INR= 1.08 PT 11.6 MD would like to move from heparin drip to Enoxaparin for treatment to bridge Warfarin. PT wt = 86kg P\ Will start Enoxaparin 80mg SubQ BID 1st dose now 2nd at 2200 then Heparin drip will be turned off and Enoxaparin given. Warfarin 5mg PO x1 tonight and INR with AM labs. Pharmacy will continue to monitor INR and adjust Warfarin as necessary. Presley Winter [facility] Aug 27, 2016 11:27
--- NOTE | 2016-08-27 11:52 | NUR ---
Social Work Note: Initial Assessment Data& Assessment: EMR reviewed. DANYA met with pt and pt (who is a LTC resident at [facility]) at bedside to discuss discharge planning, SW role explained. Srinivas Sargent is a 81 year old male admitted on 08/26/2016 for increased shortness of breath and chest pain. Pt has [facility] [place] Medic insurance coverage and sees Dayami Rosales with the [facility] in [place] for primary care. Pt was recently hospitalized and discharged home with [facility]. Pt explained that he was feeling better once he got home and discontinued the nursing services. Pt thinks that having [facility] resume services with him and have a RN check his vitals a few times a week would be beneficial and might help prevent another readmission in the future. Access provided to [facility], referral provided to Ariel with [facility]. Pt lives in [place] in a one story home, alone and is independent at baseline. Pt drives when he is feeling his best, but has been homebound for the last few weeks due to illness. SW discussed Meals on Wheels with pt in order to have consistent access to meals now that he lives alone and has not been well the last couple of months. Pt agreed, information provided and pt encouraged to call for the screening process during this hospitalization. Pt wears oxygen when needed at home through [employer], and is currently on 1L of oxygen in his room for comfort per RN. Pt does not have SNF hx. Pt does have LTC insurance. Pt is a but is not service connected. Pt has DPOA paperwork completed at home, SW requested a copy for his chart when possible. Pt and pt deny any other needs at this time. SW to continue to follow. Plan: Anticipated discharge home via POV when medically ready with [facility]. Pt and pt deny any other needs at this time. SW to continue to follow. YVAN Santizo Addendum: 08/27/16 at 1159 by IGNACIO LAN Amended: Links added.
--- NOTE | 2016-08-27 11:56 | DRSVH ---
PROCEDURE: US VENOUS LEG DUPLEX BILATERAL INDICATIONS: swelling, pain, PE TECHNIQUE: Real-time imaging, as well as color and pulse Doppler interrogation, were performed of the deep veins of both legs from the inguinal ligament to the popliteal fossa. COMPARISON: None. FINDINGS: The deep veins are normally compressible, and free of intraluminal thrombus. Color and pu lse Doppler demonstrate normal phasic intravascular flow. There is normal augmentation response to d istal compression maneuver. IMPRESSION: No deep venous thrombosis identified within either the left or right lower extremities. Dictated by: Kadeem DRISCOLL Interpreted: Saray Sorenson MD on 08/27/2016 at 11:55 Transcribed by: ANDREEA on 08/27/2016 at 11:55 Approved by: Saray Sorenson MD, PhD on 08/27/2016 at 13:10
--- NOTE | 2016-08-27 14:45 | DRSVH ---
[facility] [address] [place] [address] Echocardiogram Report Name: THAI LEDBETTER JStudy Date: Height: 76 in Hospital Exam Location: [facility] Weight: 201 lb Gender: Male BSA: 2.2 m2 : 1935 Age: 81 yrs BP: 142/83 mmHg Reason For Study: PULM EMBOLISM Ordering Physician: HOSPITALIST [facility] Performed By: Virginia Schumacher Referring Physician: DR. DAMIEN RAHMAN, DR. AB ESCOBAR Interpretation Summary Left ventricular wall thickness is mildly increased. Left ventricular ejection fraction is estimated to be .55. There is no significant valvular heart disease. Procedure: This is a linited two-dimensional transthoracic echocardiogram ordered for pulmonary embolism. The study quality was technically adequate. Comparison is made with the echocardiogram of 08-11-2016. The subcostal views were not obtained due to no visualization. The patient was in normal sinus rhythm during the exam. Left Ventricle: The left ventricle is normal in size. Left ventricular wall thickness is mildly increased. Left ventricular ejection fraction is estimated to be .55. Septal motion is consistent with conduction abnormality. Spectral Doppler of the mitral valve shows a normal E/A wave ratio. Right Ventricle: The right ventricle is normal in size and function. Atria: Both atria are normal in size. There is no Doppler evidence for an atrial septal defect. Mitral Valve: The mitral valve leaflets appear mildly thickened, but open well. Aortic Valve: The aortic valve is trileaflet. The aortic valve is slightly calcified. The aortic valve opens well. Tricuspid Valve: The tricuspid valve leaflets are thin and pliable. There is a trace or physiologic amount of tricuspid regurgitation. Pulmonary artery pressures cannot be estimated because of the lack of a measurable TR jet velocity. Pulmonic Valve: The pulmonic valve is normal in structure and function. Great Vessels: The pulmonary artery is normal size. MMode/2D Measurements & Calculations LVIDd: 5.0 cmRVDd major LV musa. diameter/BSA LV sys. diameter/BSA LVIDs: 3.6 cm: 7.2 cm (cm/m^2): 2.3 (cm/m^2): 1.6 FS: 27.2 % IVSd: 1.2 cm LVPWd : 0.9cm RVD2 (mid) : 4.0 cm Doppler Measurements & Calculations MV E max roldan MV E/A PA V2 max MV dec time : 78.4 cm/sec : 1.1 : 56.3 cm/sec : 0.26 sec MV A max roldan PA mean P.73 mmHg : 72.6 cm/sec PA Accel Time PA V2 mean: 40.8 cm/sec Electronically signed by: Presley Deutsch on Reading Physician:08/27/2016 02:45 PM
--- NOTE | 2016-08-27 16:19 | PCM.PNMED ---
Subjective Date of Service Aug 27, 2016 Subjective Continues to have dyspnea but slightly better. Lower extremity duplex negative. Echo no right heart strain. proCalcitonin negative Exam Vital Signs Vital Sign - Last Date Time Temp Pulse Resp B/P Pulse Ox O2 Delivery O2 Flow Rate FiO2 08/27/16 13:36 36.7 74 20 125/79 95 Nasal Cannula 1.00 Intake and Output 08/26/16 08/26/16 08/27/16 Cumulative From/Thru 15:00 23:00 07:00 08/26/16 11:13 - 08/27/16 06:38 Intake Total 1000 ml 803 ml 1803 ml Output Total 250 ml 825 ml 1075 ml Balance 750 ml -22 ml 728 ml Intake Oral 436 ml 436 ml IV Total 1000 ml 367 ml 1367 ml Output Urine Total 250 ml 825 ml 1075 ml # Bowel Movements 2 2 Exam General: Alert, Oriented X3, Cooperative, No Acute Distress Head: Normal Eyes: PERRLA, EOMI, Scleral Anicteric Nose: Mucous Membr Moist/[place] Mouth: Mucous Membr Moist/[place] Neck: Supple Chest & Lungs: Chest Wall Normal, Clear to auscultation & percussion Cardiovascular: Regular Rate/Rhythm,Gii/ systolic murmur at LLSB Pulses: NL carotid, radial, femoral, DP, PT Abdomen: Non-tender, Non-distended, Normoactive bowel tones, Soft Extremities: No cyanosis/clubbing/edma bilat (except trace edema in left leg with evidence of scar noted from prior CABG) Neurological: Grossly Neurologically Intact, Cranial Nerves 2-12 Intact, Normal Speech Additional Information: Psych: appropriate affect, calm, and pleasant. IVs and Medications Medications Reviewed: Medications were reviewed in detail Lab and Diagnostics Result Diagram: 08/27/16 0630 08/27/16 0630 X-Rays, CTs and MRIs Date of Service: 08/26/16 1134 PROCEDURE: X-RAY CHEST, TWO VIEWS ([id number]) IMPRESSION: Persistent bilateral pulmonary opacities as above with interval mild improvement. Recommend interval followup after appropriate therapy to document resolution. Dictated by: Mechelle Stephen M.D. on 08/26/2016 at 13:01 Approved by: Mechelle Stephen M.D. on 08/26/2016 at 13:03 Date of Service: 08/26/16 1307 PROCEDURE: CT ANGIO CHEST PULMONARY EMBOLISM ([id number]) IMPRESSION: 1. Nonocclusive, subsegmental pulmonary embolus in the left upper lobe. 2. Multifocal pulmonary radiopacities suspicious for multifocal pneumonia. Short interval followup is recommended with resolution of the patient's symptoms to ensure there is no underlying pulmonary pathology. 3. Mediastinal adenopathy, likely infectious/reactive in nature; however neoplasm cannot be excluded and followup is recommended. These findings were discussed with MICHAEL Reyna at 3:30 PM on 08/26/16. Dictated by: Melissa Goddard M.D. on 08/26/2016 at 15:26 Approved by: Melissa Goddard M.D. on 08/26/2016 at 15:38 PROCEDURE: US VENOUS LEG DUPLEX BILATERAL INDICATIONS: swelling, pain, Pe IMPRESSION: No deep venous thrombosis identified within either the left or right lower extremities. Dictated by: Kadeem Qureshi RR Interpreted: Saray Sorenson MD on 08/27/2016 at 11:55 12-lead ECG not done Cardiac Echo Impressions Interpretation Summary Left ventricular wall thickness is mildly increased. Left ventricular ejection fraction is estimated to be .55. There is no significant valvular heart disease. Assessment & Plan 81-year-old male with recent hospitalization and was discharged just 8 days ago presents with complaint of ongoing and worsening shortness of breath for past 3 days. # Acute shortness of breath due to acute pulmonary embolism, present on admission. - Start heparin drip per protocol, switch to Lovenox - Coumadin (dose per pharmacy) with daily INR while inpatient - limited echo unremarkable - Suspect acute PE due to a DVT from recent hospitalization. bilateral LE U/S negative for DVT, #Initially suspected of pneumonia on imaging studies. - I doubt active infectious pneumonia given no leukocytosis, fever, or sputum. I suspect CXR and CT findings are just residual and lagging from recent pneumonia - Will hold off on further antibiotics. -No leukocytosis and procalcitonin negative. Blood culture negative # History of Coronary Artery Disease, status post 4-vessel bypass. Presumed stable - Continue with home cardiac medications # Acute elevated lactic acid. present on admission - Followup to ensure normalize # Essential Hypertension. Stable - Continue with home meds - Will hold off on Lasix for now until Lacic acid normalize # Hyperlipidemia - Continue with statin # Pancreatic Cancer, status post Whipple procedure - Further followup with oncology as outpatient Expected length of hospital stay is greater than 2 midnights and likely 2-3 days GI Prophylaxis: Proton Pump Inhibitor VTE Prophylaxis: Other (heparin drip and bridging to Coumadin) Resuscitation Status: CPR: Attempt Resuscitation (discussed and verified with the patient) Mil Black MD Aug 27, 2016 16:19
--- NOTE | 2016-08-27 16:46 | NUR ---
Heparin gtt Heparin gtt d/c'd at 1200, SQ Lovenox administered at this time. Pt to receive Coumadin at 1700. Denies pain discomfort. Reports mild SOB with exertion. Continues to use 1L O2 NC. Per PT, when ambulating on RA, pt SpO2 was 88-92, placed back on 1L O2 NC.
[2016-08-28] VITALS (7 sets, daily range): BP systolic 110–145; BP diastolic 71–88; PULSE 62–70; RESP 20; O2SAT 95
--- NOTE | 2016-08-28 06:26 | NUR ---
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 Pt had no complaints of pain, was independent to BR all night, and remained A/Ox3 and pleasant with staff.
[2016-08-28 07:36] LABS: INR 1.08 ratio
[2016-08-28] MEDS: Pantoprazole 20 mg ER24 Tablet PO SCH (08:55)
[2016-08-28] MEDS: Pancrelipase 5,000 Unit Capsule PO SCH ×3 (08:56→17:53)
--- NOTE | 2016-08-28 10:51 | PCM.PHAPRO ---
Progress Shortness of breath Date Aug 27-Aug 28-Aug INR 1.05 1.08 1.06 INR change 0.03 -0.02 Warf Dose 5 MG 5 7.5 Vijay Willis Pharm.D Aug 28, 2016 10:51
--- NOTE | 2016-08-28 15:36 | PCM.PNMED ---
Subjective Date of Service Aug 28, 2016 Subjective Breathing continues to improve. Patient states he lost 20 pounds in the last 3- 4 weeks. He states the last time he lost this much weight, he was diagnosed as pancreatic ca in 2005. He is also very concerned if he will be diagnosed with cancer there will be no one to care for his disabled who is currently residing at [facility]. He states she is dependent on him for her care. Exam Vital Signs Vital Sign - Last Date Time Temp Pulse Resp B/P Pulse Ox O2 Delivery O2 Flow Rate FiO2 08/28/16 13:33 36.3 66 20 110/71 95 Nasal Cannula 1.00 Intake and Output 08/27/16 08/27/16 08/28/16 Cumulative From/Thru 15:00 23:00 07:00 08/26/16 11:13 - 08/28/16 06:25 Intake Total 1525 ml 736 ml 4064 ml Output Total 1175 ml 925 ml 3175 ml Balance 350 ml -189 ml 889 ml Intake Oral 1211 ml 736 ml 2383 ml IV Total 314 ml 1681 ml Output Urine Total 1175 ml 925 ml 3175 ml # Bowel Movements 1 3 Exam General: Alert, Oriented X3, Cooperative, No Acute Distress Head: Normal Eyes: PERRLA, EOMI, Scleral Anicteric Nose: Mucous Membr Moist/[place] Mouth: Mucous Membr Moist/[place] Neck: Supple Chest & Lungs: Chest Wall Normal, Clear to auscultation & percussion Cardiovascular: Regular Rate/Rhythm,Gii/ systolic murmur at LLSB Pulses: NL carotid, radial, femoral, DP, PT Abdomen: Non-tender, Non-distended, Normoactive bowel tones, Soft Extremities: No cyanosis/clubbing/edma bilat (except trace edema in left leg with evidence of scar noted from prior CABG) Neurological: Grossly Neurologically Intact, Cranial Nerves 2-12 Intact, Normal Speech Additional Information: Psych: appropriate affect, calm, and pleasant. IVs and Medications Medications Reviewed: Medications were reviewed in detail Lab and Diagnostics Result Diagram: 08/27/1662908/27/16629 X-Rays, CTs and MRIs Date of Service: 08/26/16 1134 PROCEDURE: X-RAY CHEST, TWO VIEWS ([id number]) IMPRESSION: Persistent bilateral pulmonary opacities as above with interval mild improvement. Recommend interval followup after appropriate therapy to document resolution. Dictated by: Mechelle Stephen M.D. on 08/26/2016 at 13:01 Approved by: Mechelle Stephen M.D. on 08/26/2016 at 13:03 Date of Service: 08/26/16 1307 PROCEDURE: CT ANGIO CHEST PULMONARY EMBOLISM ([id number]) IMPRESSION: 1. Nonocclusive, subsegmental pulmonary embolus in the left upper lobe. 2. Multifocal pulmonary radiopacities suspicious for multifocal pneumonia. Short interval followup is recommended with resolution of the patient's symptoms to ensure there is no underlying pulmonary pathology. 3. Mediastinal adenopathy, likely infectious/reactive in nature; however neoplasm cannot be excluded and followup is recommended. These findings were discussed with MICHAEL Reyna at 3:30 PM on 08/26/16. Dictated by: Melissa Goddard M.D. on 08/26/2016 at 15:26 Approved by: Melissa Goddard M.D. on 08/26/2016 at 15:38 PROCEDURE: US VENOUS LEG DUPLEX BILATERAL INDICATIONS: swelling, pain, Pe IMPRESSION: No deep venous thrombosis identified within either the left or right lower extremities. Dictated by: Kadeem Qureshi [facility] Interpreted: Saray Sorenson MD on 08/27/2016 at 11:55 12-lead ECG not done Cardiac Echo Impressions Interpretation Summary Left ventricular wall thickness is mildly increased. Left ventricular ejection fraction is estimated to be .55. There is no significant valvular heart disease. Assessment & Plan 81-year-old male with recent hospitalization and was discharged just 8 days ago presents with complaint of ongoing and worsening shortness of breath for past 3 days. # Acute shortness of breath due to acute pulmonary embolism, present on admission. - Initially Started heparin drip per protocol, switched to Lovenox and warfarin. Transitioned to xarelto today 08/28 . Patient agrees with Co-pay of $ 67 for 3 months. - limited echo unremarkable - Initially Suspected acute PE provoked from recent hospitalization. bilateral LE U/S negative for DVT, patient states he has 20 pound weight loss in the last 4 weeks which is concerning for cancer. he also has some infiltrates on CT chest which was initially presumed to be imaging lag from recent pneumonia. He definitely needs reimaging of chest pain the next few weeks to see if he has underlying lung mass. I called and discussed with his PCP Dr Caceres at [facility] [place] in [place] . He agrees to see him next week and do repeat CT and work him up for weight loss . # Weight Loss -patient states he has 20 pound weight loss in the last 4 weeks which is concerning for cancer.patient also very concerned of cancer recurrence. he also has some infiltrates on CT chest which was initially presumed to be imaging lag from recent pneumonia. He definitely needs reimaging of chest pain the next few weeks to see if he has underlying lung mass. I called and discussed with his PCP Dr Caceres at [facility] [place] in [place] . He agrees to see him next week and do repeat CT and work him up for weight loss . #Initially suspected of pneumonia on imaging studies. - I doubt active infectious pneumonia given no leukocytosis, fever, or sputum. Initially considered. CXR and CT findings residual and lagging from recent pneumonia but concerning for cancer as stated above - Will hold off on further antibiotics. -No leukocytosis and procalcitonin negative. Blood culture negative -Patient is discharged on home oxygen on a recent discharge from hospital. # History of Coronary Artery Disease, status post 4-vessel bypass. Presumed stable - Continue with home cardiac medications # Acute elevated lactic acid. present on admission - Followup to ensure normalize # Essential Hypertension. Stable - Continue with home meds - Will hold off on Lasix for now until Lacic acid normalize # Hyperlipidemia - Continue with statin # Pancreatic Cancer, status post Whipple procedure - Further followup with oncology as outpatient Expected length of hospital stay is greater than 2 midnights and likely 2-3 days GI Prophylaxis: Proton Pump Inhibitor VTE Prophylaxis: Other (heparin drip and bridging to Coumadin) Resuscitation Status: CPR: Attempt Resuscitation (discussed and verified with the patient) Mil Black MD Aug 28, 2016 15:36
[2016-08-28] MEDS ORDERED: Warfarin 5 MG, Warfarin 2.5 MG PO ONE ×2 (17:00)
--- NOTE | 2016-08-28 17:30 | NUR ---
SW - Readiness for Discharge Data: Pt is on day 2 of hospitalization for increased SOB, chest pain. EMR reviewed. Pt discussed in morning rounds and is likely to discharge tomorrow, is up and independent in room. MD requested SW check coverage with pharmacy for medication pradaxa vs Eliquis vs Xarelto. SW checked with preferred pharmacy [facility] and they confirmed lowest beaz med is Xarelto at $69 for 3 months. Pt was agreeable to this. MD updated and will start pt on xarelto. Pharmacist confirmed prescription will be sent to preferred pharmacy at discharge. Pt likely to discharge tomorrow via POV with resume [facility] for RN/PT. No further needs assessed at this time. SW will continue to follow. Assessment: Pt who is independent at baseline Plan:Pt likely to discharge tomorrow via POV with resume [facility] for RN/PT. No further needs assessed at this time. SW will continue to follow. YVAN Ceballos
[2016-08-29 00:19] VITALS: PULSE 65
[2016-08-29 05:14] VITALS: BP 115/67; PULSE 68; RESP 20; O2SAT 95
--- NOTE | 2016-08-29 06:17 | NUR ---
Un-eventful night Pt reported feeling well and "ready to go" all night. Pt had no complaints of pain and after receiving trazodone went to sleep and slept well most of shift.
[2016-08-29 06:48] LABS: INR 1.15 ratio
[2016-08-29 08:00] VITALS: PULSE 70; PULSE 80
[2016-08-29] MEDS: Pancrelipase 5,000 Unit Capsule PO SCH ×2 (08:05→11:31)
[2016-08-29] MEDS: Pantoprazole 20 mg ER24 Tablet PO SCH (08:07)
[2016-08-29 09:29] VITALS: BP 104/68; PULSE 73; RESP 20; O2SAT 93
--- NOTE | 2016-08-29 11:19 | PCM.DIMED ---
Discharge Instructions Date of Service Aug 29, 2016 Dates of Hospitalization Aug 26, 2016 at 16:45 Discharge Diagnosis Discharge Diagnosis # Acute shortness of breath due to acute pulmonary embolism, present on admission. # Significant unintentional Weight Loss # persistent consolidation on CT concerning for cancer # History of Coronary Artery Disease, status post 4-vessel bypass. Presumed stable # Essential Hypertension. Stable # Hyperlipidemia # History of Pancreatic Cancer, status post Whipple procedure Diet Low fat, Low Sodium, Heart Healthy Activity Limited until seen by PCP Call your provider Fever or Chills, Shortness of breath, Bleeding, Chest pain, Vomitting, Excessive diarrhea, Weakness (unilateral) Patient Instructions You were hospitalized due to shortness of breath and found to have blood clots in lungs/pulmonary embolism. Please continue Xarelto 15 mg by mouth twice a day for 21 days and continue 20 mg by mouth daily after that. You have significant unintentional weight loss . Given weight loss, blood clots in lungs , persistent consolidation on CT scan from recent pneumonia is concerning for cancer. I have discussed this concern with your PCP and he agrees to follow you closely. You will need repeat imaging and further workup outpatient. Please follow-up with PCP in 1 week. Follow-up plan Please follow-up with PCP in 1 week Follow-up Provider: Morris Rosales MD Follow-up with PCP in: 1 week Mil Black MD Aug 29, 2016 11:19
[2016-08-29] MEDS ORDERED: PANT20TA2 PO (11:22)
[2016-08-29] MEDS ORDERED: RIVA15TA PO (11:22)
[2016-08-29] MEDS ORDERED: RIVA20TA PO (11:22)
--- NOTE | 2016-08-29 12:38 | NUR ---
DISCHARGE Pt discharged at 1215, amb off unit accompanied by dtr and OUTPATIENT PHYSICAL THERAPIST ASSISTANT. Pt A&O, vital signs stable, denies pain and in no apparent distress. IV dc'd intact, all belongings returned. All instructions for diet, activity, medications, prescriptions and followup reviewed with patient who reports understanding.
--- NOTE | 2016-08-29 14:06 | PCM.DC.MED ---
Discharge Summary Date of Service Aug 29, 2016 Dates of Hospitalization Date of Hospital Admission Aug 26, 2016 at 16:45 Date of Discharge: Aug 29, 2016 Providers: Admitting Physician: Evans Quinones Primary Care Physician: Marilynn Attending Physician: Indra Lorenzana MD Diagnosis at Time of Discharge Diagnosis at Time of Discharge # Acute shortness of breath due to acute pulmonary embolism, present on admission. # Significant unintentional Weight Loss # persistent consolidation on CT concerning for cancer # History of Coronary Artery Disease, status post 4-vessel bypass. Presumed stable # Essential Hypertension. Stable # Hyperlipidemia # History of Pancreatic Cancer, status post Whipple procedure Consultations none Procedures XRay, CTs & MRIs Date of Service: 08/26/16 1134 PROCEDURE: X-RAY CHEST, TWO VIEWS ([id number]) IMPRESSION: Persistent bilateral pulmonary opacities as above with interval mild improvement. Recommend interval followup after appropriate therapy to document resolution. Dictated by: Mechelle Stephen M.D. on 08/26/2016 at 13:01 Approved by: Mechelle Stephen M.D. on 08/26/2016 at 13:03 Date of Service: 08/26/16 1307 PROCEDURE: CT ANGIO CHEST PULMONARY EMBOLISM ([id number]) IMPRESSION: 1. Nonocclusive, subsegmental pulmonary embolus in the left upper lobe. 2. Multifocal pulmonary radiopacities suspicious for multifocal pneumonia. Short interval followup is recommended with resolution of the patient's symptoms to ensure there is no underlying pulmonary pathology. 3. Mediastinal adenopathy, likely infectious/reactive in nature; however neoplasm cannot be excluded and followup is recommended. These findings were discussed with MICHAEL Reyna at 3:30 PM on 08/26/16. Dictated by: Melissa Goddard M.D. on 08/26/2016 at 15:26 Approved by: Melissa Goddard M.D. on 08/26/2016 at 15:38 PROCEDURE: US VENOUS LEG DUPLEX BILATERAL INDICATIONS: swelling, pain, Pe IMPRESSION: No deep venous thrombosis identified within either the left or right lower extremities. Dictated by: Kadeem Qureshi RRA Interpreted: Saray Sorenson MD on 08/27/2016 at 11:55 ECG 12 Lead not done Cardiac Echo Impression Interpretation Summary Left ventricular wall thickness is mildly increased. Left ventricular ejection fraction is estimated to be .55. There is no significant valvular heart disease. Brief History per HPI by Dr Quinones 81-year-old male with past history as noted below and notable for history of pancreatic cancer s/p Whipple procedure (presumed in remission) who was hospitalized just a couple of weeks ago for acute SBO and during that hospitalization was treated with full course of IV Zosyn for presumed aspiration pneumonia presents today with report of ongoing and worsening shortness of breath for the past 3 days. He was discharged from the hospital on 08/18/16 to home with home health and was doing well at home, so much so, that his visiting nurse told him she did not need to follow him at home any more. On Friday (3 days ago) he started feeling some shortness of breath that progressively got worse till today. This was associated with some pleuritic left posterior chest pain as well. He otherwise denies any fever, chills, cough , sore throat, rhinorrhea, or sputum production. He reports some residual swelling in his left leg from recent hospitalization which he attributes to IV fluids that he received but denies any calf pain or tenderness. On further questioning he also expresses some concern about recent weight loss and thinks he may have lost about 20 lbs over the past week or so. He says that during his recent hospitalization no body had placed SCD's on him and he does not recall receiving any subcutaneous shots for DVT prophylaxis either. In the ED he received a dose of IV Zosyn fore presumed pneumonia before his CTA of chest was noted to be positive for PE. Hospital Course 81-year-old male with recent hospitalization and was discharged just 8 days ago presents with complaint of ongoing and worsening shortness of breath for past 3 days. # Acute shortness of breath due to acute pulmonary embolism, present on admission. - Initially Started heparin drip per protocol, switched to Lovenox and warfarin. Transitioned to xarelto 08/28 . Patient agrees with Co-pay of $ 67 for 3 months. Discharged on Xarelto - limited echo unremarkable - Initially Suspected acute PE provoked from recent hospitalization. bilateral LE U/S negative for DVT, patient states he has 20 pound weight loss in the last 4 weeks which is concerning for cancer. he also has some infiltrates on CT chest which was initially presumed to be imaging lag from recent pneumonia. He definitely needs reimaging of chest pain the next few weeks to see if he has underlying lung mass. I called and discussed with his PCP Dr Caceres at [facility] in [place] . He agrees to see him next week and do repeat CT and work him up for weight loss . # Weight Loss -patient states he has 20 pound weight loss in the last 4 weeks which is concerning for cancer.patient also very concerned of cancer recurrence. he also has some infiltrates on CT chest which was initially presumed to be imaging lag from recent pneumonia. He definitely needs reimaging of chest pain the next few weeks to see if he has underlying lung mass. I called and discussed with his PCP Dr Caceres at [facility] in [place] . He agrees to see him next week and do repeat CT and work him up for weight loss . #Initially suspected of pneumonia on imaging studies. - I doubt active infectious pneumonia given no leukocytosis, fever, or sputum. Initially considered. CXR and CT findings residual and lagging from recent pneumonia but concerning for cancer as stated above - held off on antibiotics. -No leukocytosis and procalcitonin negative. Blood culture negative -Patient is discharged on home oxygen on a recent discharge from hospital. May use home oxygen # History of Coronary Artery Disease, status post 4-vessel bypass. Presumed stable - Continue with home cardiac medications # Essential Hypertension. Stable - Continue with home meds - Will hold off on Lasix for now until Lacic acid normalize # Hyperlipidemia - Continue with statin # Pancreatic Cancer, status post Whipple procedure - Further followup with oncology as outpatient Discharged home Condition on discharge stable Exam Vital Signs (Last) Date Time Temp Pulse Resp B/P Pulse Ox O2 Delivery O2 Flow Rate FiO2 08/29/16 09:29 36.3 73 20 104/68 93 Room Air 08/29/16 05:14 1.00 Exam General: Alert, Oriented X3, Cooperative, No Acute Distress Head: Normal Eyes: PERRLA, EOMI, Scleral Anicteric Nose: Mucous Membr Moist/Sidney Mouth: Mucous Membr Moist/Sidney Neck: Supple Chest & Lungs: Chest Wall Normal, Clear to auscultation & percussion Cardiovascular: Regular Rate/Rhythm,Gii/ systolic murmur at LLSB Pulses: NL carotid, radial, femoral, DP, PT Abdomen: Non-tender, Non-distended, Normoactive bowel tones, Soft Extremities: No cyanosis/clubbing/edma bilat (except trace edema in left leg with evidence of scar noted from prior CABG) Neurological: Grossly Neurologically Intact, Cranial Nerves 2-12 Intact, Normal Speech Additional Information: Psych: appropriate affect, calm, and pleasant. Test 08/26/16 12:05 08/26/16 18:44 08/26/16 19:41 08/26/16 19:46 Total Bilirubin 0.4mg/dL (0.0-1.2) Aspartate Amino Transf (AST/SGOT) 24U/L (0-50) Alanine Aminotransferase (ALT/SGPT) 18U/L (0-44) Alkaline Phosphatase 70U/L (25-160) Troponin T 0.011ug/L (0.0-0.011) Pro-B-Type Natriuretic Peptide 401.5pg/mL (0-486) Total Protein 8.2g/dL (6.4-8.4) Albumin 3.5g/dL (3.4-5.0) Lactic Acid Level 0.7mmol/L (0.4-2.0) Hold Urine Received (Received) Urine Color Yellow (YELLOW) Urine Appearance Clear (CLEAR,HAZY) Urine pH 7.0 (5.0-8.0) Urine Specific Scuddy 1.010 (1.003-1.035) Urine Protein Negativemg/dL (NEG,TRACE) Urine Glucose (UA) Negativemg/dL (NEGATIVE) Urine Ketones Negativemg/dL (NEGATIVE) Urine Occult Blood Negative (NEGATIVE) Urine Nitrite Negative (NEGATIVE) Urine Bilirubin Negative (NEGATIVE) Urine Urobilinogen Normalmg/dL (NORMAL) Urine Leukocyte Esterase Negative (NEGATIVE) Urine RBC 0-2/hpf (0-2) Urine WBC 0-5/hpf (0-5) Urine Epithelial Cells Few/hpf (NONE-MOD) Urine Crystals None seen (NONE SEEN) Urine Bacteria Few/hpf (NONE-FEW) Urine Hyaline Casts None/lpf (NONE) Urine Granular Casts None seen (NONE SEEN) Urine Waxy Casts None seen (NONE SEEN) Urine Red Blood Cell Casts None seen (NONE SEEN) Urine White Blood Cell Casts None seen (NONE SEEN) Urine Mucus None seen (None Seen) Urine Trichomonas None seen (NONE SEEN) Urine Yeast None (NONE SEEN) Urinalysis Comment None Urine Culture Reflexed Not indicated Test 08/27/16 06:30 08/29/16 05:45 White Blood Count 4.9th/mm3 (3.8-10.1) Red Blood Count 3.96mil/mm3 (4.40-5.80) Hemoglobin 12.0g/dL (13.8-17.2) Hematocrit 36.6% (41.0-50.0) Mean Corpuscular Volume 92.4fL (81-100) Mean Corpuscular Hemoglobin 30.3pg (27.0-35.0) Mean Corpuscular Hemoglobin Concent 32.8% (32.0-37.0) Red Cell Distribution Width 13.3% (12.3-15.4) Platelet Count 329bil/L (150-400) Neutrophils (%) (Auto) 65.0% (40-74) Lymphocytes (%) (Auto) 22.0% (14-46) Monocytes (%) (Auto) 9.5% (4-12) Eosinophils (%) (Auto) 2.7% (0-5) Basophils (%) (Auto) 0.6% (0-3) Activated Partial Thromboplast Time 82.8sec (22.8-33.0) Sodium Level 137mEq/L (134-144) Potassium Level 4.4mEq/L (3.5-5.2) Chloride Level 102mEq/L (97-108) Carbon Dioxide Level 21mmol/L (18-29) Blood Urea Nitrogen 17mg/dL (8-27) Creatinine 1.08mg/dL (0.76-1.27) Estimat Glomerular Filtration Rate 70mL/min (>59) Glucose Level 102mg/dL (60-99) Calcium Level 8.7mg/dL (8.5-10.1) Procalcitonin 0.06ng/mL (0.00-0.08) Prothrombin Time 12.3sec (8.1-12.5) Prothromb Time International Ratio 1.15ratio Discharge Medications Discharge Medications Aspirin (Aspirin) 81 Mg Tablet.dr 81 MG PO QAM (Reported) Atenolol (Atenolol) 25 Mg Tablet 12.5 MG PO QAM Prescribed by: DEJUAN YOUSIF DO Cholecalciferol (Vitamin D3) (Vitamin D3) 2,000 Unit Capsule 2,000 UNIT PO QAM ( Reported) Furosemide (Furosemide) 40 Mg Tablet 20 MG PO QAM (Reported) Lipase/Protease/Amylase (Creon DR) 1 Each Capsule.dr 2 EACH PO TIDWM (Reported) 68105 UNITS Multivitamin (Once Daily) 1 Each Tablet 1 EACH PO QAM (Reported) Pantoprazole DR (Pantoprazole DR) 20 Mg Tablet.dr 20 MG PO DAILYAC Prescribed by: KEYONNA VAUGHAN MD Potassium Chloride (Potassium Chloride) 40 Meq/15 Ml Liquid 20 MEQ PO QAM ( Reported) Rivaroxaban (Xarelto) 15 Mg Tablet 15 MG PO BID Prescribed by: KEYONNA VAUGHAN MD Rivaroxaban (Xarelto) 20 Mg Tablet 20 MG PO DAILY Prescribed by: KEYONNA VAUGHAN MD Sertraline HCl (Sertraline) 50 Mg Tablet 50 MG PO DAILY Prescribed by: DEJUAN YOUSIF DO Simvastatin (Simvastatin) 20 Mg Tablet 10 MG PO HS (Reported) As needed Benzonatate (Tessalon Perle) 100 Mg Capsule 100 MG PO TID PRN PRN For Cough Prescribed by: DEJUAN YOUSIF DO Melatonin (Melatonin) 5 Mg Tablet 5 MG PO HS PRN PRN Insomnia Prescribed by: DEJUAN YOUSIF DO Nitroglycerin SL (Nitrostat) 0.4 Mg Tab.subl 0.4 MG SL Q5MIN PRN PRN For Chest Pain (Reported) Miscellaneous Medications Dyer-3/Dha/Epa/Fish Oil (Dyer-3 Fish Oil 1,200 mg Sfgl) 1,200 Mg Capsule 1, 200 MG PO (Reported) Followup Plan Disposition: Home Follow-up plan Please follow-up with PCP in 1 week Discharge Diet: Low fat, Low Sodium, Heart Healthy Discharge Activity: Limited until seen by PCP Patient Instructions You were hospitalized due to shortness of breath and found to have blood clots in lungs/pulmonary embolism. Please continue Xarelto 15 mg by mouth twice a day for 21 days and continue 20 mg by mouth daily after that. You have significant unintentional weight loss . Given weight loss, blood clots in lungs , persistent consolidation on CT scan from recent pneumonia is concerning for cancer. I have discussed this concern with your PCP and he agrees to follow you closely. You will need repeat imaging and further workup outpatient. Please follow-up with PCP in 1 week. Follow-up Provider: Morris Rosales MD Follow-up with PCP in: 1 week Time spent 35 minutes copies to: Morris Rosales MD Tesfaye, Melaku MD Aug 29, 2016 14:06
--- NOTE | 2016-08-30 11:57 | NUR ---
Social Work: Discharge Data & Assessment: Media Marketing Coordinator spoke with Ariel from [facility] and he was aware that the patient discharged. The patient will start home health with [facility]. Ariel explained that the patient was referred to [facility] in the past, but services was not started and a face-to face will be needed. DANYA will fax face to face to [facility]. [facility] has access to the patient's chart. Patient will have home health PT and RN. Plan: DANYA will fax patient's [id number] to [facility] at [phone]. Reena Carl LMSW, ACM
== END 2016-08-29 12:00 | disposition home health service (06) | DRG 176 ==
LOC: SED 11:11 → MPC 16:45
PROVIDERS: ADMIT Internal Medicine; ATTEND Internal Medicine
DX: I26.99 Other pulmonary embolism without acute cor pulmonale (principal); E87.2 Acidosis; I25.10 Atherosclerotic heart disease of native coronary artery without angina pectoris; R63.4 Abnormal weight loss; E78.5 Hyperlipidemia, unspecified; I10 Essential (primary) hypertension; Z87.891 Personal history of nicotine dependence; Z85.07 Personal history of malignant neoplasm of pancreas; Z98.890 Other specified postprocedural states; Z79.82 Long term (current) use of aspirin; Z95.1 Presence of aortocoronary bypass graft

== ENCOUNTER 2016-11-10 09:03 | Emergency (ER) | payer MEDICARE ==
[~2016-11-10] VITALS: Ht 193 cm; Wt 95.5 kg
[~2016-11-10 09:03] MED LIST changes: -FLUT16SP NS; +PANT20TA2 PO; +RIVA15TA PO; +RIVA20TA PO
--- NOTE | 2016-11-10 09:09 | ED.REPORT ---
HPI-General Illness Date of Service Nov 10, 2016 ED Provider: The patient is a 81 year old male with history of coronary artery disease s/p CABG, atrial fibrillation and pulmonary embolism on Xarelto, pancreatic cancer s /p Whipple, hypertension, hyperlipidemia, and asthma, who presents to the emergency department by EMS for a nose bleed that began this morning after he sneezed. The blood is mostly coming out of his nose, he only notices it running down his throat if he tips his head backwards. EMS administered Afrin en route. Nursing Notes Stated Complaint: NOSE BLEED Nursing Notes Reviewed: Yes Allergies: Coded Allergies: hydromorphone (Verified Allergy, Unknown, 08/06/16) Scheduled Amoxicillin/Clav K 875-125 mg (Augmentin 875-125 mg) 1 Each Tablet 1 TABLET PO BID Aspirin (Aspirin) 81 Mg Tablet.dr 81 MG PO QAM Atenolol (Atenolol) 25 Mg Tablet 12.5 MG PO QAM Cholecalciferol (Vitamin D3) (Vitamin D3) 2,000 Unit Capsule 2,000 UNIT PO QAM Furosemide (Furosemide) 40 Mg Tablet 20 MG PO QAM Lipase/Protease/Amylase (Creon DR) 1 Each Capsule.dr 2 EACH PO TIDWM 87353 UNITS Multivitamin (Once Daily) 1 Each Tablet 1 EACH PO QAM Pantoprazole DR (Pantoprazole DR) 20 Mg Tablet.dr 20 MG PO DAILYAC Potassium Chloride (Potassium Chloride) 40 Meq/15 Ml Liquid 20 MEQ PO QAM Rivaroxaban (Xarelto) 15 Mg Tablet 15 MG PO BID Rivaroxaban (Xarelto) 20 Mg Tablet 20 MG PO DAILY Sertraline HCl (Sertraline) 50 Mg Tablet 50 MG PO DAILY Simvastatin (Simvastatin) 20 Mg Tablet 10 MG PO HS Scheduled PRN Benzonatate (Tessalon Perle) 100 Mg Capsule 100 MG PO TID PRN PRN For Cough Melatonin (Melatonin) 5 Mg Tablet 5 MG PO HS PRN PRN Insomnia Nitroglycerin SL (Nitrostat) 0.4 Mg Tab.subl 0.4 MG SL Q5MIN PRN PRN For Chest Pain Miscellaneous Medications Mcbrides-3/Dha/Epa/Fish Oil (Mcbrides-3 Fish Oil 1,200 mg Sfgl) 1,200 Mg Capsule 1, 200 MG PO General Time Seen by MD: 09:10 Chief Complaint Other (nose bleed) Hx Obtained From: Patient, EMS Arrived By: Ambulance Sudden in Onset?: Yes Onset Occurred: 16 - 30 minutes ago Symptom Duration: Since onset Quality: Painful Severity: Current: Mild Severity: Maximum: Mild Recent Healthcare: No recent doctor visit, No recent hospitalization Similar Sx Previous: No Past Medical History Past Medical History Notes: PCP Dr. Morris Rosales ([place]) Past Medical History 1. Coronary Artery Disease, status post 4-vessel bypass 2. Pancreatic Cancer, status post Whipple procedure 3. Essential Hypertension 4. Hyperlipidemia 5. Asthma 6. Small bowel 7. Pulmonary embolism on Xarelto 9. Lymphoma s/p gastrectomy 10. Atrial fibrillation Past Surgical History Quadruple bypass in 1995 Whipple in 2005 Bowel obstruction surgery Hernia surgery (mesh was placed) Gastrectomy Family History Reviewed, not relevant Smoking History Former Smoker Social History Alcohol Use: Denies alcohol use Drug Use: Denies drug use Other Social History: Good social support, , Local resident Occupation is in [employer], lives by self in 1 story house Ambulatory Status Independent Review of Systems Full Review of Systems Ears / Nose / Throat: Reports: Nose bleeding Allergy / Immune: Reports: Sneezing Complete sys rev & neg: except as marked. Physical Exam Vital Signs Vital Signs Date Time Temp Pulse Resp B/P Pulse Ox O2 Delivery O2 Flow Rate FiO2 11/10/16 10:57 32 16 106/58 94 Room Air 11/10/16 09:10 36.6 43 18 143/84 98 Room Air Initial VS: Reviewed Head / Eyes: Atraumatic, Normocephalic, PERRL Neck: Supple, Non-tender, Full range of motion Respiratory: Breath sounds normal, Clear to auscultation, No respiratory distress Cardiovascular: Regular rate & rhythm, Heart sounds normal, Intact distal pulses Abdomen / GI: Soft, Non-tender, No guarding, No rebound, No distention Lymphatic: No lymphadenopathy Extremities: Vascular intact, Neuro intact, No swelling, No tenderness Skin: Warm, Dry, No cyanosis Neurologic: Alert, Oriented, Nonfocal Psychiatric: Mood/affect normal, Behavior normal, Normal thought content General/Constitutional: Awake, Alert, Cooperative ENT: Airway patent Nose: Positive: Epistaxis left, Epistaxis moderate Procedures Epistaxis Management Epistaxis Management: 0921 - Afrin administered 1038 - Rhinorocket inserted Time: 09:22 Procedure Performed by: ED physician Consent / Setup / Site Prep: Consent from patient, Time-out performed, Hand hygiene observed Side and Location of Bleed: Nare left - anterior Pre-medication and Procedure: Oxymetazoline, Rapid rhino inserted Post-Procedure / Complications: Bleeding stopped, No complications, Patient stable, Tolerated procedure well Re-Eval/Medical Decision Source of Hx: Old records, EMS Time of Eval: 09:21 Re-Evaluation/Progress Note: Applied Afrin at this time. Time of Eval: 09:36 Re-Evaluation/Progress Note: Rechecked the patient. He is still oozing. When he is sitting up he does not feel blood running down his throat. Will insert rhinorocket. Time of Eval: 10:04 Re-Evaluation/Progress Note: Rechecked the patient. There is no active oozing. He has noticed occasional drips that appear to be normal saline with a small amount of blood. Time of Eval: 10:25 Re-Evaluation/Progress Note: Rechecked the patient. The patient is feeling better. Discussed plan for discharge and outpatient followup. All questions were addressed. Counseled Regarding: Diagnosis, Lab results, Need for follow-up, When/why to return to ED Discharge & Departure Primary Impression: Epistaxis Disposition: Home Discharge Condition All VS Reviewed: Yes Condition: Stable Patient Instructions: Epistaxis (ED) Additional Instructions: Thank you for entrusting us with your care today. We were able to control the bleeding using a rhinorocket. You will need to followup with ENT on Friday or Friday. We have given you a referral to Dr. Micha Borrego. Call tomorrow morning to schedule this appointment. Leave the rhinorocket in place until you are re-evaluated. Take the antibiotic as prescribed. Return to the emergency department for continued bleeding, lightheadedness, dizziness, syncope, weakness, or any other new or concerning symptoms. Referrals: Micha Borrego MD Attestation Portions of this note were transcribed by Liane Costello. I, Dr. Sosa personally performed the history, physical exam and medical decision-making; I reviewed and confirmed the accuracy of the information in the transcribed note. Signed by: Lauren Randall, 11/10/2016 at 1100. copies to: Micha Borrego MD, Timothy S DO Nov 10, 2016 09:09 Pravin,Liane Tilley Nov 10, 2016 09:16
[2016-11-10 09:10] VITALS: BP 143/84; RESP 18; O2SAT 98
[2016-11-10] MEDS ORDERED: AMOX-366 PO (10:46)
[2016-11-10 10:57] VITALS: BP 106/58; PULSE 32; RESP 16; O2SAT 94
== END 2016-11-10 10:59 | disposition home or self-care (01) ==
LOC: EDBD 09:03 → SED 09:03
DX: R04.0 Epistaxis (principal); I10 Essential (primary) hypertension; I25.10 Atherosclerotic heart disease of native coronary artery without angina pectoris; E78.5 Hyperlipidemia, unspecified; J45.909 Unspecified asthma, uncomplicated; I48.91 Unspecified atrial fibrillation; Z86.711 Personal history of pulmonary embolism; Z85.07 Personal history of malignant neoplasm of pancreas; Z87.891 Personal history of nicotine dependence; Z79.82 Long term (current) use of aspirin; Z88.5 Allergy status to narcotic agent; Z95.1 Presence of aortocoronary bypass graft

== ENCOUNTER 2016-11-11 09:04 | Emergency (ER) | payer MEDICARE ==
[~2016-11-11] VITALS: Ht 193 cm; Wt 95.0 kg
[~2016-11-11 09:04] MED LIST changes: +AMOX-366 PO
[2016-11-11 09:15] VITALS: BP 125/55; RESP 16; O2SAT 98
--- NOTE | 2016-11-11 09:15 | ED.REPORT ---
HPI-Head Prob / Injury Date of Service Nov 11, 2016 ED Provider: Delano Sosa DO Pt is a 81 year old male with a hx of afib, HTN, CAD, and hyperlipidemia on Xarelto presenting to the ED complaining that his nasal packing that was placed in the ER yesterday for epistaxis is getting loose. The Rhino Rocket packing was loosened by excessive sneezing. He reports a little bit of bleeding from the nose and a headache. Nursing Notes Stated Complaint: NASAL PACKING GETTING LOOSE Chief Complaint: ENT & Mouth Nursing Notes Reviewed: Yes Allergies: Coded Allergies: hydromorphone (Verified Allergy, Unknown, 08/06/16) Scheduled Amoxicillin/Clav K 875-125 mg (Augmentin 875-125 mg) 1 Each Tablet 1 TABLET PO BID Aspirin (Aspirin) 81 Mg Tablet.dr 81 MG PO QAM Atenolol (Atenolol) 25 Mg Tablet 12.5 MG PO QAM Cholecalciferol (Vitamin D3) (Vitamin D3) 2,000 Unit Capsule 2,000 UNIT PO QAM Furosemide (Furosemide) 40 Mg Tablet 20 MG PO QAM Lipase/Protease/Amylase (Creon DR) 1 Each Capsule.dr 2 EACH PO TIDWM 29651 UNITS Multivitamin (Once Daily) 1 Each Tablet 1 EACH PO QAM Pantoprazole DR (Pantoprazole DR) 20 Mg Tablet.dr 20 MG PO DAILYAC Potassium Chloride (Potassium Chloride) 40 Meq/15 Ml Liquid 20 MEQ PO QAM Rivaroxaban (Xarelto) 15 Mg Tablet 15 MG PO BID Rivaroxaban (Xarelto) 20 Mg Tablet 20 MG PO DAILY Sertraline HCl (Sertraline) 50 Mg Tablet 50 MG PO DAILY Simvastatin (Simvastatin) 20 Mg Tablet 10 MG PO HS Scheduled PRN Benzonatate (Tessalon Perle) 100 Mg Capsule 100 MG PO TID PRN PRN For Cough Melatonin (Melatonin) 5 Mg Tablet 5 MG PO HS PRN PRN Insomnia Nitroglycerin SL (Nitrostat) 0.4 Mg Tab.subl 0.4 MG SL Q5MIN PRN PRN For Chest Pain Miscellaneous Medications [place]-3/Dha/Epa/Fish Oil ([place]-3 Fish Oil 1,200 mg Sfgl) 1,200 Mg Capsule 1, 200 MG PO General Time Seen by Provider: 09:22 Chief Complaint Other (Nasal packing loose) Hx Obtained From: Patient Arrived By: Walk-in Onset Occurred: Just prior to arrival Symptom Duration: Since onset Location: : Nose Severity: Current: Mild Severity: Maximum: Mild Recent Healthcare: No recent hospitalization, Recent doctor visit Similar Sx Previous: No Past Medical History Past Medical History Notes: PCP Dr. Morris Rosales ([place]) Past Medical History 1. Coronary Artery Disease, status post 4-vessel bypass 2. Pancreatic Cancer, status post Whipple procedure 3. Essential Hypertension 4. Hyperlipidemia 5. Asthma 6. Small bowel 7. Pulmonary embolism on Xarelto 9. Lymphoma s/p gastrectomy 10. Atrial fibrillation Past Surgical History Quadruple bypass in 1995 Whipple in 2005 Bowel obstruction surgery Hernia surgery (mesh was placed) Gastrectomy Family History Reviewed, not relevant Smoking History Former Smoker Social History Alcohol Use: Denies alcohol use Drug Use: Denies drug use Other Social History: Good social support, , Local resident Occupation is in [employer], lives by self in 1 story house Ambulatory Status Independent Review of Systems Review of Systems Note: Nasal packing loose Constitutional: Denies: Weakness - generalized Ears / Nose / Throat: Reports: Nose bleeding GI: Denies: Abdominal pain, Vomiting Neurologic: Reports: Headache Complete sys rev & neg: except as marked. Physical Exam Initial Vital Signs Vital Signs (First) Date Time Temp Pulse Resp B/P Pulse Ox O2 Delivery O2 Flow Rate FiO2 11/11/16 09:15 36.6 42 16 125/55 98 Room Air Initial VS: Reviewed Respiratory: Breath sounds normal, Clear to auscultation, No respiratory distress Cardiovascular: Regular rate & rhythm, Heart sounds normal, Intact distal pulses Abdomen / GI: Soft, Non-tender, No guarding, No rebound, No distention Extremities: Vascular intact, Neuro intact, No swelling, No tenderness Skin: Warm, Dry, No cyanosis Psychiatric: Mood/affect normal, Behavior normal, Normal thought content General/Constitutional: Awake, Alert, No acute distress, Well appearing Head / Eyes: Atraumatic, Normocephalic, PERRL, EOMI ENT: Atraumatic, Airway patent, Mucous membranes moist, Pharynx NL Rhino rocket left nare. No active bleeding. Dislodged by 2 cm. Neck: Atraumatic, Supple Neurologic: Oriented X3, Speech NL, No motor deficits, No sensory deficits, CN II - XII intact, Cerebellar NL Re-Eval/Medical Decision Re-Evaluation/Progress : Time of Eval: 09:41 Patient Status: Condition improved Re-Evaluation/Progress Note: Deflated balloon and reinserted. No bleeding. Discussed plan for discharge. Pt understands and agrees. Counseled Regarding: Diagnosis, Lab results, Need for follow-up, When/why to return to ED Discharge & Departure Primary Impression: Epistaxis Disposition: Home All VS Reviewed: Yes Condition: Improved Patient Instructions: Epistaxis (ED) Additional Instructions: Your nasal packing looks great. Make a follow-up appointment with the ear nose and throat doctors tomorrow or Friday. Return to the ER as needed if you develop recurrent bleeding or have other concerns. Referrals: [facility] [place] Attestation Portions of this note were transcribed by Brandy Kearney. I, Dr. Sosa personally performed the history, physical exam and medical decision-making; I reviewed and confirmed the accuracy of the information in the transcribed note. Signed by: Lauren Acuna, 11/11/16 at 0945. copies to: [facility] Delano Sosa DO Nov 11, 2016 09:15 BRANDY KEARNEY Nov 11, 2016 09:27
[2016-11-11 09:55] VITALS: BP 125/55; PULSE 42; RESP 16; O2SAT 98
== END 2016-11-11 09:40 | disposition home or self-care (01) ==
LOC: SED 09:04
DX: R04.0 Epistaxis (principal); I25.10 Atherosclerotic heart disease of native coronary artery without angina pectoris; E78.5 Hyperlipidemia, unspecified; I10 Essential (primary) hypertension; Z86.711 Personal history of pulmonary embolism; Z87.891 Personal history of nicotine dependence; Z85.07 Personal history of malignant neoplasm of pancreas; Z79.82 Long term (current) use of aspirin; Z88.5 Allergy status to narcotic agent

== ENCOUNTER 2016-11-11 15:34 | Emergency (ER) | payer MEDICARE ==
[~2016-11-11] VITALS: Ht 193 cm; Wt 95.5 kg
[2016-11-11 15:38] VITALS: BP 92/46; RESP 16; O2SAT 96
--- NOTE | 2016-11-11 16:11 | ED.REPORT ---
HPI-Facial Injury Date of Service Nov 11, 2016 ED Provider: Sabino Oconnell MD Pt is a 81 y/o male anticoagulated on Xarelto w/ a hx of a-fib, CAD s/p CABG x4 , pancreatic CA s/p Whipple, HTN, HLD, PE, presenting to the ED due to dislodged left rhino rocket. The patient was seen in the ED yesterday at 0900 for epistaxis after a sneezing episode and required a left nare rhino rocket was placed. This morning at 09:00 he was seen in the ED due to the rhino dislodging. He returns again now due to it dislodging again. The patient states he sneezed 20 times just now causing the rhino rocket to dislodge although the bleeding has not restarted. The patient was at an [facility] earlier today at which time his BP was 100/60. He denies lightheadedness, dizziness, any complaints. He is still taking his Xarelto and Aspirin but has his Atenolol stopped. Nursing Notes Stated Complaint: FOLLOW UP Chief Complaint: ENT & Mouth Nursing Notes Reviewed: Yes ([employer] not reconciled - EMR indicates Xarelto use & ASA) Allergies: Coded Allergies: hydromorphone (Verified Allergy, Unknown, 11/11/16) Scheduled Amoxicillin/Clav K 875-125 mg (Augmentin 875-125 mg) 1 Each Tablet 1 TABLET PO BID Aspirin (Aspirin) 81 Mg Tablet.dr 81 MG PO QAM Atenolol (Atenolol) 25 Mg Tablet 12.5 MG PO QAM Cholecalciferol (Vitamin D3) (Vitamin D3) 2,000 Unit Capsule 2,000 UNIT PO QAM Furosemide (Furosemide) 40 Mg Tablet 20 MG PO QAM Lipase/Protease/Amylase (Creon ) 1 Each Capsule.dr 2 EACH PO TIDWM 90101 UNITS Multivitamin (Once Daily) 1 Each Tablet 1 EACH PO QAM Pantoprazole (Pantoprazole ) 20 Mg Tablet.dr 20 MG PO DAILYAC Potassium Chloride (Potassium Chloride) 40 Meq/15 Ml Liquid 20 MEQ PO QAM Rivaroxaban (Xarelto) 15 Mg Tablet 15 MG PO BID Rivaroxaban (Xarelto) 20 Mg Tablet 20 MG PO DAILY Sertraline HCl (Sertraline) 50 Mg Tablet 50 MG PO DAILY Simvastatin (Simvastatin) 20 Mg Tablet 10 MG PO HS Scheduled PRN Benzonatate (Tessalon Perle) 100 Mg Capsule 100 MG PO TID PRN PRN For Cough Melatonin (Melatonin) 5 Mg Tablet 5 MG PO HS PRN PRN Insomnia Nitroglycerin SL (Nitrostat) 0.4 Mg Tab.subl 0.4 MG SL Q5MIN PRN PRN For Chest Pain Miscellaneous Medications [place]-3/Dha/Epa/Fish Oil ([place]-3 Fish Oil 1,200 mg Sfgl) 1,200 Mg Capsule 1, 200 MG PO General Time Seen by Provider: 16:15 Chief Complaint Other (sneezing) Hx Obtained From: Patient Arrived By: Walk-in Onset Occurred: Just prior to arrival Symptom Duration: Since onset Progression Since Onset: Constant Severity: Current: No pain currently Severity: Maximum: No pain Recent Healthcare: Recent doctor visit, Recent testing, Previous diagnosis, Prior workup Similar Sx Previous: Yes Past Medical History Past Medical History Notes: PCP Dr. Morris [place]) Seen in [facility] ED for nose blled 11/10 and 11/11/16 (tamponade device placed, re-adjusted 11/11) Past Medical History 1. Coronary Artery Disease, status post 4-vessel bypass 2. Pancreatic Cancer, status post Whipple procedure 3. Essential Hypertension 4. Hyperlipidemia 5. Asthma 6. Small bowel 7. Pulmonary embolism on Xarelto 9. Lymphoma s/p gastrectomy 10. Atrial fibrillation Past Surgical History Quadruple bypass in 1995 Whipple in 2005 Bowel obstruction surgery Hernia surgery (mesh was placed) Gastrectomy Family History Reviewed, not relevant Smoking History Former Smoker Social History Alcohol Use: Denies alcohol use Drug Use: Denies drug use Other Social History: Good social support, , Local resident Occupation is in [employer], lives by self in 1 story house Ambulatory Status Independent Review of Systems Constitutional: Denies: Chills, Fever Ears / Nose / Throat: Denies: Nose bleeding Neurologic: Denies: Abnormal movement, Bladder dysfunction, Bowel dysfunction, Change LOC, Confusion, Dizziness, Focal weakness, Headache, Lightheaded, Numbness, Problem walking, Seizure, Shaking, Slurred speech, Spinning sensation , Syncope, Unable to speak, Vision change, Weakness Complete sys rev & neg: except as marked. Allergy / Immune: Reports: Sneezing Physical Exam Initial Vital Signs Vital Signs (First) Date Time Temp Pulse Resp B/P Pulse Ox O2 Delivery O2 Flow Rate FiO2 11/11/16 15:38 37.0 46 16 92/46 96 Room Air Initial VS: Reviewed, Vital signs abnormal (hypotension, HR bradycardic ( patient states normal for him)) Respiratory: Breath sounds normal, Clear to auscultation, No respiratory distress Cardiovascular: Regular rate & rhythm, Heart sounds normal, Intact distal pulses Abdomen / GI: Soft Extremities: Vascular intact, Neuro intact, No swelling Skin: Warm, Dry, No cyanosis Psychiatric: Mood/affect normal, Behavior normal, Normal thought content Head / Eyes: Atraumatic, Normocephalic, PERRL ENT: Atraumatic, Airway patent, Mucous membranes moist Dislodged left rhino rocket, this was quickly replaced No active bleeding Neck: Atraumatic, Supple, No meningismus, Full range of motion Neurologic: Oriented X3, Speech NL, No motor deficits, No sensory deficits, Memory NL General/Constitutional: Awake, Alert, No acute distress, Well appearing, Cooperative, Not toxic appearing Re-Eval/Medical Decision Med Decision/Clinical Course This is a 81-year-old male returns for his third visit-however his complaints not actually knows bleeding, but that he sneezed and that the tamponade device started to come out. He has no additional complaints. He was noted to have a low blood pressure at triage, so is medical Or 2, reports he has no symptoms. He has had no significant bleeding since the event, he is however still on Xarelot for Afib. He denies being dizzy, near syncopal, or having any additional complaints. He appears well at apartment. He is able to ambulate, he is not dizzy or lightheaded, blood pressure is normal without any intervention. He is having no active bleeding or epistaxis. The Rhino Rocket tamponade balloon was deflated, the device advanced, and reinflated. He had no problems, and no current bleeding. The patient's asymptomatic, given he has had a single low blood pressure but the other blood pressures are normal, given he does not describe any bleeding for the past 2 days, I am not finding indication that laboratory testing are indicated or that the low blood pressure initially measured in triage is manufacturers service representative. Patient agrees and states he is doing well. He does not yet have an appointment with ENT for follow-up, so is able call over and schedule an appointment for Friday at 8 AM. We also completed the referral process for his insurance [employer] per their request. Given he is on anticoagulation only for atrial fibrillation, I have requested he hold his anticoagulation for the next 2 days until seen by ear nose and throat. Patient is discharged clinically well-appearing. Source of Hx: Old records Re-Evaluation/Progress : Time of Eval: 17:03 Re-Evaluation/Progress Note: Pt rechecked. Informed pt of plan for treatment. Pt understands and agrees with plan for treatment. F/U instructions and RTER warnings given. All questions addressed. Differential Diagnosis: Negative: Abrasion, Animal bite, Basilar skull fracture , Facial fracture, Gun shot wound, Septal hematoma, Stab wound Counseled Regarding: Diagnosis, Need for follow-up, When/why to return to ED Discharge & Departure Impression: Primary Impression: Epistaxis Additional Impression: Anticoagulated by anticoagulation treatment Disposition: Home Discharge Condition All VS Reviewed: Yes Condition: Stable Additional Instructions: 1. I repositioned your nasal packing. 2. We have made an appointment for you at the Ear, Nose, and Throat doctor's office at 8am on Friday11/13/16 with the [facility] ([facility]). We have talked to [place] and placed the expedited referral. 3. Please hold your Xarelto (just for the next few days until the packing is removed) 4. Your initial blood pressure was low at triage, although with your repeat blood pressure being normal, your not describing any major new bleeding, and with you not having any other symptoms (e.g. dizziness, weakness) - I am not finding indication that you need additional blood work. 5. Return again if new or worsening symptoms. Referrals: NOPCP (PCP) Scribe Attestation Portions of this note were transcribed by Lenin Carrero. I, Dr. Oconnell, personally performed the history, physical exam and medical decision-making; I reviewed and confirmed the accuracy of the information in the transcribed note. Signed by Lauren Mcgarry, 11/11/16 - 1630 Sabino Oconnell MD Nov 11, 2016 16:11 LENIN CARRERO Nov 11, 2016 16:13
[2016-11-11 17:18] VITALS: BP 103/82
[2016-11-11 17:22] VITALS: BP 103/82
== END 2016-11-11 17:23 | disposition home or self-care (01) ==
LOC: SED 15:34
DX: R04.0 Epistaxis (principal); I48.91 Unspecified atrial fibrillation; I25.10 Atherosclerotic heart disease of native coronary artery without angina pectoris; I10 Essential (primary) hypertension; E78.5 Hyperlipidemia, unspecified; Z90.3 Acquired absence of stomach [part of]; Z95.1 Presence of aortocoronary bypass graft; Z87.891 Personal history of nicotine dependence; Z86.711 Personal history of pulmonary embolism; Z85.07 Personal history of malignant neoplasm of pancreas; Z79.01 Long term (current) use of anticoagulants; Z79.02 Long term (current) use of antithrombotics/antiplatelets; Z79.82 Long term (current) use of aspirin; Z88.5 Allergy status to narcotic agent

== ENCOUNTER 2016-11-15 05:43 | Emergency (ER) | payer MEDICARE ==
[~2016-11-15] VITALS: Ht 193 cm; Wt 95.5 kg
[2016-11-15 05:49] VITALS: BP 156/83; RESP 14; O2SAT 98
--- NOTE | 2016-11-15 06:09 | ED.REPORT ---
HPI-Facial Injury Date of Service Nov 15, 2016 ED Provider: Yahir Hurd Patient is a 81 year old male with a hx of A fib, pancreatic cancer, CAD, PE, hyperlipidemia, and HTN on Xarelto who presents to the ED complaining of a nose bleed onset 0500 this morning. He was seen in this department 6 days ago for the same symptoms and a rhino rocket was inserted and his Xarelto was stopped. 3 days ago he had the rocket removed and resumed his Xarelto. He experienced bleeding again the next morning and a mesh was placed in his L nostril by ENT. He denies lightheadedness, headache, dizziness, or any other symptoms. He has been using pressure to control the bleeding. He has an appointment with his PCP today. Nursing Notes Stated Complaint: NOSE BLEED Chief Complaint: ENT & Mouth Nursing Notes Reviewed: Yes Allergies: Coded Allergies: hydromorphone (Verified Allergy, Unknown, 11/11/16) Scheduled Amoxicillin/Clav K 875-125 mg (Augmentin 875-125 mg) 1 Each Tablet 1 TABLET PO BID Aspirin (Aspirin) 81 Mg Tablet.dr 81 MG PO QAM Atenolol (Atenolol) 25 Mg Tablet 12.5 MG PO QAM Cholecalciferol (Vitamin D3) (Vitamin D3) 2,000 Unit Capsule 2,000 UNIT PO QAM Furosemide (Furosemide) 40 Mg Tablet 20 MG PO QAM Lipase/Protease/Amylase (Creon DR) 1 Each Capsule.dr 2 EACH PO TIDWM 96484 UNITS Multivitamin (Once Daily) 1 Each Tablet 1 EACH PO QAM Pantoprazole DR (Pantoprazole DR) 20 Mg Tablet.dr 20 MG PO DAILYAC Potassium Chloride (Potassium Chloride) 40 Meq/15 Ml Liquid 20 MEQ PO QAM Rivaroxaban (Xarelto) 15 Mg Tablet 15 MG PO BID Rivaroxaban (Xarelto) 20 Mg Tablet 20 MG PO DAILY Sertraline HCl (Sertraline) 50 Mg Tablet 50 MG PO DAILY Simvastatin (Simvastatin) 20 Mg Tablet 10 MG PO HS Scheduled PRN Benzonatate (Tessalon Perle) 100 Mg Capsule 100 MG PO TID PRN PRN For Cough Melatonin (Melatonin) 5 Mg Tablet 5 MG PO HS PRN PRN Insomnia Nitroglycerin SL (Nitrostat) 0.4 Mg Tab.subl 0.4 MG SL Q5MIN PRN PRN For Chest Pain Miscellaneous Medications [place]-3/Dha/Epa/Fish Oil ([place]-3 Fish Oil 1,200 mg Sfgl) 1,200 Mg Capsule 1, 200 MG PO General Time Seen by Provider: 06:08 Chief Complaint Nose bleed Hx Obtained From: Patient Arrived By: Walk-in Onset Occurred: 1 - 4 hours ago Symptom Duration: Since onset Recent Healthcare: Recent doctor visit Similar Sx Previous: Yes Past Medical History Past Medical History Notes: PCP Dr. Morris Rosales ([place]) Seen in [facility] ED for nose blled 11/10 and 11/11/16 (tamponade device placed, re-adjusted 11/11) Past Medical History 1. Coronary Artery Disease, status post 4-vessel bypass 2. Pancreatic Cancer, status post Whipple procedure 3. Essential Hypertension 4. Hyperlipidemia 5. Asthma 6. Small bowel obstruction 7. Pulmonary embolism on Xarelto 9. Lymphoma s/p gastrectomy 10. Atrial fibrillation Past Surgical History Quadruple bypass in 1995 Whipple in 2005 Bowel obstruction surgery Hernia surgery (mesh was placed) Gastrectomy Family History Reviewed, not relevant Smoking History Former Smoker Social History Alcohol Use: "Social" Drug Use: Denies drug use Other Social History: Good social support, , Local resident Occupation is in [employer], lives by self in 1 story house Ambulatory Status Independent Review of Systems Ears / Nose / Throat: Reports: Nose bleeding Neurologic: Denies: Dizziness, Headache, Lightheaded Complete sys rev & neg: except as marked. Physical Exam Initial Vital Signs Vital Signs (First) Date Time Temp Pulse Resp B/P Pulse Ox O2 Delivery O2 Flow Rate FiO2 11/15/16 05:49 36.4 44 14 156/83 98 Room Air Initial VS: Reviewed Respiratory: No respiratory distress Abdomen / GI: Soft, Non-tender Skin: Warm, Dry Psychiatric: Mood/affect normal, Behavior normal, Normal thought content Head / Eyes: Atraumatic, Normocephalic, PERRL, EOMI ENT: Atraumatic, Airway patent No active nose bleedings, small streak of blood in pharynx, no clots Neck: Atraumatic, Supple, Full range of motion Neurologic: Oriented X3, Speech NL General/Constitutional: Awake, Alert, No acute distress Re-Eval/Medical Decision Re-Evaluation/Progress : Time of Eval: 06:15 Re-Evaluation/Progress Note: Discussed need for ENT followup. Discussed plan for discharge. Patient understands and agrees with plan. All questions addressed at this time. Consultation #1: Referral / Consult Name: Micha Gary MD Consulted With: ENT Call Returned at: 06:45 Control Chemist: Will see in office, Agrees with eval, Agrees with plan Note: Discussed pt's case. Will see pt in office at 0730. Consultation #2: Referral / Consult Name: Micha Borrego MD Consulted With: ENT Call Returned at: 07:54 Control Chemist: Will see in office Note: Wants to see the patient in the office at 10 AM Counseled Regarding: Diagnosis, Need for follow-up, When/why to return to ED Discharge & Departure Impression: Primary Impression: Epistaxis Disposition: Home Discharge Condition All VS Reviewed: Yes Condition: Improved Patient Instructions: Epistaxis (ED) Additional Instructions: Go directly to the ENT clinic this morning as they are awaiting your arrival. Referrals: NOPCP (PCP) Scribe Attestation Portions of this note were transcribed by Chasity Leach. I, Dr. Hurd personally performed the history, physical exam and medical decision-making; I reviewed and confirmed the accuracy of the information in the transcribed note. Signed by: Chasity Leach 11/15/2016, 0712 Yahir Hurd MD Nov 15, 2016 06:09 CHASITY LEACH Nov 15, 2016 06:15
[2016-11-15 07:35] VITALS: BP 119/65; PULSE 48; RESP 14; O2SAT 95
== END 2016-11-15 07:55 | disposition home or self-care (01) ==
LOC: SED 05:43
DX: R04.0 Epistaxis (principal); I11.9 Hypertensive heart disease without heart failure; I25.10 Atherosclerotic heart disease of native coronary artery without angina pectoris; I48.91 Unspecified atrial fibrillation; J45.909 Unspecified asthma, uncomplicated; Z79.82 Long term (current) use of aspirin; Z87.891 Personal history of nicotine dependence; Z88.5 Allergy status to narcotic agent